=== PATIENT | male | born 1955 | race Caucasian/White ===

== ENCOUNTER → 2018-12-29 | Outpatient (CLI) | payer BC, SELFPAY | END | disposition home or self-care (01) | LOC: LAB 11:28 | PROVIDERS: Family Provider Preventive Medicine Occupational Medicine; PCP Preventive Medicine Occupational Medicine; Referring Provider Urology; Visit Provider Urology | DX: C61 Malignant neoplasm of prostate (principal) | CPT/HCPCS: 36415; 84153 ==

== ENCOUNTER → 2019-01-01 | Outpatient (CLI) | payer BC, SELFPAY ==
[2019-01-01 10:08] LABS: Bacteria 0 SEEN /hpf (None Seen); Mucous, Urine 0 SEEN /hpf (<or=2+); Red Blood Cells-Urine 0 SEEN /hpf (0-5)
[2019-01-01 11:12] LABS: Color, Urine Yellow (Yellow); Glucose, Dipstick Normal (Normal); Ketone-Dipstick 5 mg/dl (Negative); Leukocyte Esterase-Dipstick 25 /ul (Negative); Nitrite-Dipstick Negative (Negative); Occult Blood-Urine Negative /ul (Negative); Protein-Dipstick Negative (Negative); Specific Gravity, Urine 1.015 (1.002-1.030); Urine Bilirubin Dipstick Negative (Negative); Urine Clarity Sl. Cloudy (Clear); Urine Urobilinogen 4 mg/dl (Normal); Urine pH 6.5 (5.0 - 8.0)
[2019-01-01 11:18] LABS: Squamous Epithelial Cells - UA 0-5 SEEN /hpf (0-5); White Blood Cells 0-5 SEEN /hpf (0-5)
== END | disposition home or self-care (01) ==
LOC: LAB.FUTURE 10:04 → LAB 10:07
PROVIDERS: Family Provider Preventive Medicine Occupational Medicine; PCP Preventive Medicine Occupational Medicine; Referring Provider Urology; Visit Provider Urology
DX: R30.0 Dysuria (principal)
CPT/HCPCS: 81001; 87086

== ENCOUNTER → 2019-01-16 | Outpatient (CLI) | payer BC, SELFPAY | END | disposition home or self-care (01) | LOC: PAVLAB 09:49 | PROVIDERS: Family Provider Preventive Medicine Occupational Medicine; PCP Preventive Medicine Occupational Medicine; Referring Provider Urology; Visit Provider Urology | DX: C61 Malignant neoplasm of prostate (principal) | CPT/HCPCS: 36415; 84153 ==

== ENCOUNTER 2019-01-25 07:11 | Day surgery (SDC) | payer BC, SELFPAY ==
[2019-01-19 09:14] VITALS: BMI 24.9
--- NOTE | 2019-01-19 09:30 | HP_ITS ---
Intake Vital Signs 01/19/19 Body Mass Index (BMI) 24.9 01/19/19 Height 5 ft 8 in 01/19/19 Weight: 160 lb 01/19/19 Body Mass Index (BMI) 24.3 01/19/19 Blood Pressure 104/46 L 01/19/19 Blood Pressure Location Rt brachial 01/19/19 Blood Pressure Position Sitting 01/19/19 Respiratory Rate 18 01/19/19 Pulse Rate 92 01/19/19 Pulse Source Monitor 01/19/19 Temperature 97.6 F L 01/19/19 Temperature Source Oral 01/19/19 Pulse Ox 96 01/19/19 Oxygen Delivery Method room air Intake Visit Reasons: NEEDS PORT Chief Complaint: Referred for management of prostate cancer. Telehealth Nurse Required: No Is patient in pain?: No Allergies No Known Allergies Allergy (Verified 01/19/19 09:14) Medications Lisinopril [Zestril] 20 mg PO DAILY 03/23/13 [History Confirmed 01/19/19] Rosuvastatin Calcium [Crestor] 40 mg PO QHS 03/23/13 [History Confirmed 01/19/19] Dexlansoprazole [Dexilant] 60 mg PO 01/16/19 [History Confirmed 01/19/19] Ezetimibe [Zetia] 10 mg PO DAILY 01/16/19 [History Confirmed 01/19/19] Leuprolide acetate [Eligard] 22.5 mg SQ X1 01/16/19 [History Confirmed 01/19/19] Prednisone 5 mg PO BID 01/16/19 [History Confirmed 01/19/19] Aspirin [Aspir-Low] 81 mg PO DAILY 01/17/19 [History Confirmed 01/19/19] [facility] Medical History Abnormal biopsy result (Acute) Elevated PSA (Acute) Erectile dysfunction after radical prostatectomy (Acute) GERD without esophagitis (Acute) History of bone scan (Acute) Hypercholesterolemia (Acute) Malignant neoplasm of prostate (Acute) Osteoarthritis (Acute) Osteoporosis (Acute) Stress incontinence, male (Acute) Unspecified retinal disorder (Acute) Unspecified visual disturbance (Acute) Hypertension (Chronic) Surgical History History of fusion of cervical spine (Acute) History of tonsillectomy (Acute) History of radical prostatectomy (Acute) Family History Brother CAD (coronary artery disease) Coronary artery disease involving coronary bypass graft Father CAD (coronary artery disease) Coronary artery disease involving coronary bypass graft Social History (Updated 01/19/19 @ 09:30 by Mike Johnson MD) Smoking Status: Current some day smoker HPI HPI HPI: PARVEEN VERA, is a 63 M who presents to the office today for HPI HPI Surgical H&P: Yes HPI: PARVEEN VERA, is a 63 M who presents to the office today for Evaluation of a port. 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 And is going to be getting IV chemotherapy. ROS General General: Yes weight change and fatigue; no appetite, colon cancer, breast cancer or weakness HEENT HEENT: No difficulty swallowing, eye injury, eye surgery, swollen glands or hoarseness Endo Endocrine: No thyroid disease, diabetes mellitus, thyroid cancer, Hair loss, heat intolerance or cold intolerance Skin Skin: No rash or changing moles Breast Breast: No left breast lump, right breast lump, nipple discharge, breast pain, abnormal mammogram, abnormal US or breast enlargement Musc Musculoskeletal: Yes back problems and arthritis; no rheumatoid arthritis, gout or joint pain Cardio Cardiovascular: Yes high blood pressure; no murmur, pacemaker, heart disease, atrial fibrillation, heart attack, heart stent, palpitations, shortness of breat with exertion or chest pain Psych Psychiatric: No depression, anxiety or hearing voices Resp Respiratory: No shortness of breath, No sleep apnea, No cough, No COPD, No asthma, No emphysema, No wheezing Gastro Gastrointestinal: No abdominal pain, No nausea or vomiting, No diarrhea, No constipation, No blood in stool, Yes acid reflux, Yes hemorrhoids, No ulcers, No gallbladder problem, No black,tarry stools Kirby Hematologic: Yes blood thinners, No blood disorders, No bleeding, No anemia, No blood clots Neuro Neurologic: No system reviewed and no additional complaints, except as docu, No as per HPI, No abnormal walking, No abnormal hearing, No abnormal movements, No abnormal speech, No behavioral changes, No burning sensations, No confusion, No seizure-like activity, No unsteadiness, No dizziness, No localized weakness, No frequent falls, No headache(s), No lack of coordination, No loss of vision, No memory loss, No numbness, No other visual disturbances, No radiating pain, No restless legs, No sensory deficit, No fainting, No tingling, No tremor(s), No weakness, No other Exam Const General: no acute distress, well developed, well hydrated Orientation: oriented to person, oriented to place, oriented to time [facility] Head: normocephalic, atraumatic Ears: external ears normal Mouth: moist mucous membranes Eyes Sclera: sclerae normal Pupils: normal by confrontation Neck Neck: no lymphadenopathy noted Neck mass: No Thyroid: thyroid normal, symmetrical Chest Chest palpation & inspection: normal inspection of the chest Breast Palpation: No nipple discharge Resp Effort & Inspection: normal respiratory effort Auscultation: clear to auscultation bilaterally Percussion: percussion normal Cardio Rate: regular rate Rhythm: regular rhythm Heart Sounds: no murmurs GI Palpation: soft, no hepatosplenomegaly, no masses, nontender Rectal Exam: other Other: Rectal exam deferred. Extrem General: normal to inspection, no clubbing, cyanosis or edema Assessment & Plan Problems 1. Vascular catheter fitting or adjustment Z45.2 Plan I plan to perform a Power port a cath placement, Either left or right side. The planned surgical procedure was discussed extensively with the patient. The risks, benefits, anticipated outcomes and possible complication were mentioned. My staff has also explained the procedure in understandable terms and the patient was given the option to take printed material concerning the planned procedure. The patient had the opportunity to ask questions concerning the planned procedure. The patient freely consents to the planned procedure. We will try to place this in an IJ fashion however the patient has had previous neck fusion surgeries on both the left and right side and the status of the internal jugular veins is not known. I have discussed with him possibly placing this in a subclavian fashion as well. Coding Level of Care Code Off vis,new,level 3 Diagnoses Vascular catheter fitting or adjustment Z45.2 01/19/19 0931 <Electronically signed by Mike oconnor MD> Date _ Mike oJhnson MD I have re-examined the patient. There are no clinical changes since date of exam.
[2019-01-25] VITALS (7 sets, daily range): BP systolic 93–112; BP diastolic 55–74; PULSE 16–71; RESP 16; TEMP 36.7–36.9; O2SAT 95–97; BMI 25.1
[2019-01-25] MEDS: Lactated Ringers 1,000 ML 100 ML IV (08:20)
[2019-01-25] MEDS: Cefazolin 2 GM in 0.9% Normal Saline 100 ML IV (08:34)
--- NOTE | 2019-01-25 08:50 | OP.PCM_ITS ---
Problem List (1) Encounter for adjustment and management of vascular access device Status: Acute Report of Operation Date of Procedure: 01/25/19 Pre-Operative Diagnosis: Vascular fitting and adjustment Post-Operative Diagnosis: Vascular fitting and adjustment Surgery/Procedure Performed:: Placement of a right IJ PowerPort Type of Anesthesia:: Local MAC Anesthesiologist: Mike Petty Estimated Blood Loss (mL): < 25 cc Fluids Replaced: 500 cc LR Description of Procedure: Patient was brought into the operating room. Placed in the supine position. Bed was tilted down the ultrasound of the neck identify the internal jugular vein marked the neck and chest appropriately. The neck and chest were then sterilely prepped and draped in the usual fashion. Local was injected into the neck Seldinger's technique was used to gain access to the internal jugular vein guidewire was placed over the needle needle was removed fluoroscopy was used to confirm wire placement local was injected into the chest incision was made electrocautery was used to create a pocket for the port. Dilator and sheath were placed over the guidewire after the skin was nicked I removed the dilator and remove the guidewire. A single lumen catheter was placed through the sheath the sheath was subsequently removed. Fluoroscopy was used to confirm proper length. I tunneled from the pocket created over the collarbone into the neck and brought the catheter down. It flushed well I cut at the length placed the locking up on the catheter the port under the catheter and secured the 2 with a locking hub. It was sutured in place with 2 sutures of 2-0 Prolene. Skin incisions were closed with deep dermal stitches of 3-0 Vicryl and running 4-0 Monocryl Dermabond was applied sterile dressings were applied portable chest x- ray was ordered. Patient tolerated the procedure well - Admit VTE Documentation VTE Present on Admission: No VTE Mechan Device Prophylaxis: SCD's VTE Pharm Prophylaxis ordered?: No Reason prophylaxis not ordered:: Treatment Not Indicated
--- NOTE | 2019-01-25 08:53 | DCINST_ITS ---
Discharge Diet: No Restrictions - Pain medication may cause nausea. You should typically eat light foods as you take your pain medication. Discharge Activity: May Shower - with the bandage in place 1-2 days after surgery. DO NOT SHOWER WHEN YOUR PORT IS ACCESSED. Additional Activity Instructions:: May not drive, work with heavy equipment, or sign legal documents for [address] if you are no longer taking narcotic pain medications. You may drive when you are no longer taking pain medications. Additional Dressing/Incision Instructions:: Leave the bandage on for 2-3 days. When you remove the bandage, leave the steri-strips intact until they fall off. Allergies/Adverse Reactions: Allergies No Known Allergies Allergy (Verified 01/25/19 07:55) Medications to take at Discharge Lisinopril [Zestril] 20 mg PO QHS 03/23/13 Dexlansoprazole [Dexilant] 60 mg PO DAILY 01/16/19 Ezetimibe [Zetia] 10 mg PO QHS 01/16/19 Leuprolide acetate [Eligard] 22.5 mg SQ X1 01/16/19 Prednisone 5 mg PO BID 01/16/19 Aspirin [Aspir-Low] 81 mg PO DAILY 01/17/19 Abiraterone Acetate 1,000 mg PO DAILY 01/22/19 Psyllium Husk (with Sugar) [Metamucil Packet] 3.4 gm PO DAILY 01/22/19 Oxycodone HCl/Acetaminophen [Percocet 5/325] 1 - 2 tab PO Q4H PRN PRN 6 Days #30 tab 01/25/19 The following prescriptions were given: Oxycodone HCl/Acetaminophen [Percocet 5/325] 1 - 2 tab PO Q4H PRN PRN 6 Days #30 tab PRN Reason: Pain Prescription Printed Primary Care Physician: Denny Carrasco DO [Primary Care Provider] - Test Results: Test results from this visit will be discussed in further detail at your follow- up appointment, if applicable. Please Follow Up With: Janusz Cuenca MD - [phone] When: Please plan to follow up in 7 days in the office.
--- NOTE | 2019-01-25 08:53 | RAD_ITS ---
STUDY: X-RAY CHEST REASON FOR EXAM: Male, 63 years old. Port placement. TECHNIQUE: Single AP portable view of the chest. COMPARISON: None. FINDINGS: A right-sided portacatheter has been placed. The tip is at the junction of the superior vena cava and right atrium. EKG electrodes are seen. The lungs are clear and expanded. Scattered calcified granulomas. There is no demonstrated pleural abnormality. Normal size heart. Normal mediastinum and ledy. Normal visualized pulmonary arteries. Normal visualized aortic arch and descending thoracic aorta. Normal visualized thoracic spine. Normal visualized ribs, clavicles, and shoulders. There is no demonstrated abnormality of the visualized soft tissue structures of the upper abdomen. RAD/CXR for Line Placement IMPRESSION: The tip of the right cesar catheter is at the junction of the superior vena cava and right atrium. Electronically Signed: Siva Dale, at 10:10 EST , Service support ,
[2019-01-25] MEDS: Bupivacaine Mpf 0.5% 30 ML VIAL (09:00)
== END 2019-01-25 11:05 | disposition home or self-care (01) ==
LOC: SDC 07:14 → AC 07:15
PROVIDERS: Family Provider Preventive Medicine Occupational Medicine; PCP Preventive Medicine Occupational Medicine; Referring Provider Surgery; Visit Provider Surgery
PROC: (CPT 36571; principal; 2019-01-25 09:00)
DX: C61 Malignant neoplasm of prostate (principal); C77.2 Secondary and unspecified malignant neoplasm of intra-abdominal lymph nodes; Z45.2 Encounter for adjustment and management of vascular access device; K21.9 Gastro-esophageal reflux disease without esophagitis; E78.00 Pure hypercholesterolemia, unspecified; M19.90 Unspecified osteoarthritis, unspecified site; I10 Essential (primary) hypertension; N52.9 Male erectile dysfunction, unspecified; N39.3 Stress incontinence (female) (male); F17.200 Nicotine dependence, unspecified, uncomplicated; Z86.718 Personal history of other venous thrombosis and embolism; Z79.82 Long term (current) use of aspirin; Z79.899 Other long term (current) drug therapy
CPT/HCPCS: 00532; 36571; 71045; 77001; J7120; C1788; J2405

== ENCOUNTER → 2019-02-02 | Outpatient (CLI) | payer BC, SELFPAY ==
[2019-01-29 13:02] VITALS: BMI 25.3
[2019-02-01 11:49] VITALS: BMI 24.5
--- NOTE | 2019-02-02 10:31 | NM_ITS ---
CLINICAL: 63-year-old male with reported history of carcinoma of the prostate. WHOLE BODY 99m Tc MDP RADIONUCLIDE BONE SCINTIGRAPHY COMPARISON: None available FINDINGS: Following the intravenous administration of 24.0 mCi of 99m Tc MDP, whole body bone images reveal: 1. Increased radiopharmaceutical concentration is identified in the left anterior sixth rib at the costochondral junction and diffusely defined at the second lumbar vertebra posteriorly. 2. Facilitated tracer concentration is noted in the lower cervical spine posteriorly on the right, acromioclavicular compartments of both shoulders, the left knee, fifth lumbar vertebra posteriorly on the left, bilateral posterior sacrum, the left ankle, left hind, mid and forefoot. 3. The remaining skeletal structures are scintigraphically unremarkable with normal-appearing renal images and urinary bladder activity identified. NM/Bone Scan Whole Body IMPRESSION: 1. The increase in radiopharmaceutical concentration identified in the second lumbar vertebra and left anterior sixth rib is most consistent with trauma-fracture. Plain film radiography correlation may be of benefit in the setting of known prostate carcinoma. 2. Degenerative arthritis appears expressed in the cervical and lumbar spine, sacrum, bilateral shoulders, the left knee. 3. Facilitated uptake diffusely identified in the distal left upper extremity relative to the right may represent changes indeterminate to altered weight-bearing status in the absence of clinically suspected CRPS-RSD. Electronically Signed: Nikhil Fernandez DO at 13:46 EST Tel , Service support ,
== END | disposition home or self-care (01) ==
LOC: NM 10:27
PROVIDERS: Family Provider Preventive Medicine Occupational Medicine; PCP Preventive Medicine Occupational Medicine; Referring Provider Nurse Practitioner Family; Visit Provider Nurse Practitioner Family
DX: C61 Malignant neoplasm of prostate (principal)
CPT/HCPCS: 78306

== ENCOUNTER → 2019-02-16 12:45 | Outpatient (CLI) | payer BC, SELFPAY ==
[2019-02-14 10:55] VITALS: BMI 25.4
--- NOTE | 2019-02-16 13:02 | RAD_ITS ---
STUDY: X-RAY BONE SURVEY COMPLETE REASON FOR EXAM: Male, 63 years old. Prostate cancer for 8 years now with metastases. TECHNIQUE: Single AP portable view of the chest. One view of the pelvis was obtained. 1 views of the cervical spine were obtained. 2 views of the thoracic spine were obtained. 2 views of the lumbar spine were obtained. 1 views of the femur, tibia and fibula. 1 views of the humerus, radius and ulna. : 1 views of the skull were obtained. COMPARISON: None. FINDINGS: CHEST: The lungs are normally expanded with minimal left basilar atelectasis. There is a right-sided chest port in place with the tip in the distal SVC. There is no demonstrated pleural abnormality. Normal size heart. Normal mediastinum and ledy. Normal visualized pulmonary arteries. Normal visualized aortic arch and descending thoracic aorta. There are diffuse degenerative changes of the visualized thoracic spine. There is degenerative osteoarthritis of the bilateral shoulders. There is no demonstrated abnormality of the visualized soft tissue structures of the upper abdomen. PELVIS: There is a non-specific bowel gas pattern. Normal visualized soft tissue structures. There are few left-sided calcified phleboliths. There is narrowing with cortical sclerosis and osteophyte formation of the sacroiliac joint consistent with degenerative osteoarthritic changes. Normal visualized bilateral superior and inferior pubic rami. There are degenerative changes of the pubic symphysis with articular narrowing and sclerosis. Normal ischial tuberosities. Normal visualized right femoral head. There is mild osteoarthritic spur formation of the right acetabular rim. There is mild articular joint space narrowing of the right hip. Normal visualized left femoral head. There is mild osteoarthritic spur formation of the left acetabular rim. There is mild articular joint space narrowing of the left hip. CERVICAL SPINE: There are degenerative changes of the anterior atlantoaxial articulation. Normal odontoid process. There is reversal of the normal cervical lordosis. There is multi-level endplate spondylosis. There is multi-level degenerative disc disease with multilevel disc space narrowing. Sequela of previous fusion at C5-C6 and C6-C7 noted with subtle well-corticated lucencies and metallic punctate radiopaque bodies. The soft tissue structures are unremarkable. THORACIC SPINE: Normal kyphosis of the thoracic spine. There is no substantial scoliosis. There is multilevel endplate spondylosis of the thoracic vertebrae. There is multilevel disc space narrowing of the thoracic spine. There is mild osteopenia. The soft tissue structures are unremarkable. LUMBAR SPINE: Normal lumbar lordosis. There is no substantial scoliosis. There is a normal alignment of the vertebrae. There is multilevel endplate spondylosis of the lumbar vertebrae. There is multi-level degenerative disc disease with multi-level disc space narrowing. Questionable osteopenic changes noted. Compression fracture of L2 noted, exact age indeterminate. There is atherosclerotic calcification of the abdominal aorta without a demonstrated aneurysm. RIGHT FEMUR,TIBIA AND FIBULA: There is diffuse demineralization of the femur, tibia and fibula. Normal visualized soft tissue structure. There is no demonstrated fracture or destructive process. LEFT FEMUR,TIBIA AND FIBULA: There is diffuse demineralization of the femur, tibia and fibula. Normal visualized soft tissue structure. There is no demonstrated fracture or destructive process. RIGHT HUMERUS,RADIUS AND ULNA :There is diffuse demineralization of the humerus. There is no demonstrated fracture or osseous destructive process. There is no demonstrated soft tissue abnormality. LEFT HUMERUS,RADIUS AND ULNA :There is diffuse demineralization of the humerus. There is no demonstrated fracture or osseous destructive process. There is no demonstrated soft tissue abnormality. SKULL: There is no demonstrated soft tissue swelling. Multiple, small, punctate lucencies throughout the calvarium noted which could represent artifact from underlying osteopenia versus sequela of etiology such as hyperparathyroidism. Otherwise normal osseous calvarium. Normal visualized facial bones. Normal visualized paranasal sinuses. RAD/Bone Survey Comp(Axial&Append) IMPRESSION: Diffuse osteopenia along with multilevel degenerative disease as described above. No distinct fracture or subluxation. No focal bony lesion. Electronically Signed: Luisa Coleman MD at 3:38 EST , Service support ,
== END ==
PROVIDERS: Family Provider Preventive Medicine Occupational Medicine; PCP Preventive Medicine Occupational Medicine; Referring Provider Internal Medicine Medical Oncology; Visit Provider Internal Medicine Medical Oncology
DX: C61 Malignant neoplasm of prostate (principal)
CPT/HCPCS: 77075

== ENCOUNTER 2019-03-10 12:22 | Emergency (ER) | payer BC, SELFPAY ==
[2019-03-08 13:13] VITALS: BMI 25.9
[2019-03-10 12:23] VITALS: BP 126/77; PULSE 95; RESP 16; TEMP 37.2; O2SAT 96; BMI 24.6
[2019-03-10 13:20] LABS: Absolute Lymphocyte Count 1.51 X10^3/uL (0.83-4.51); Absolute Neutrophil Count 3.8 X10^3/uL (2.0-7.7); Basophil# 0.09 X10^3/uL; Basophil% 1.4 % (0-1); Eosinophil# 0.02 X10^3/uL; Eosinophils% 0.3 % (0-5); Hematocrit 41.4 % (40-54); Lymphocyte # 1.51 X10^3/ul (4.0); Lymphocyte % 22.7 % (19-41); Mean Corp Hgb Conc 33.8 g/dL (32-36); Mean Corpuscular Hgb 32.7 pg (27.0-32.0); Mean Corpuscular Volume 96.7 fL (80-94); Mean Platelet Vol. 8.8 fl (6.2-12.0); Monocyte# 1.12 X10^3/uL; Monocyte% 16.8 % (0-10); NRBC Flagged by Analyzer 0 % (0-5); Neutrophil # 3.76 X10^3/uL (2.7-7.7); Neutrophil % 56.5 % (47-70); Platelet Count 223 K/mm3 (150-450); RBC Distribution Width CV 13.7 % (11.6-14.6); RBC Distribution Width SD 48.6 fl (35.1-43.9); Red Blood Count 4.28 M/mm3 (4.6-6.2); White Blood Count 6.7 K/mm3 (4.4-11.0)
[2019-03-10 13:32] LABS: Anion Gap 4 (5-15); BUN 13 mg/dL (7-18); BUN/Creat Ratio 19.7 RATIO (10-20); Calcium,Total 9.1 mg/dL (8.5-10.1); Chloride 107 mmol/L (98-107); Creatinine, Serum 0.66 mg/dL (0.70-1.30); EST Glomerular Filtration Rate 130 mL/min (>60); Est Glom Filt Rate - Afr Amer 157 mL/min (>60); Estimated Creatinine Clearance 112.27 ml/min; Glucose 88 mg/dL (74-106); Potassium 4.1 mmol/L (3.5-5.1); Sodium Level 141 mmol/L (136-145)
[2019-03-10] MEDS: Vancomycin IV 1,000 MG/200 ML BAG 200 MG IV (13:50)
--- NOTE | 2019-03-10 14:58 | PN_ITS ---
Progress Note The patient was complaining of increased right neck pain and a firmness in the area. He called me and I had him come into the emergency room. He did have erythema and firmness in the area of the right neck. I discussed this with him and he was given vancomycin by the emergency room physician. I prepped the area with Betadine and remove the suture. The incision was opened once more and probed. There was a very small amount of purulence but this was mostly cellulitis. This area was cultured and he will be sent home on broad-spectrum a ntibiotics orally. He will follow-up as scheduled on Tuesday with Dr. Heredia. I instructed him to return to the emergency room if you experience any fevers chills nausea vomiting or lightheadedness. STROKE Vital Signs/Narrative: Vital Signs Temp Pulse Resp BP Pulse Ox 03/10/19 12:23 99.0 F 95 16 126/77 H 96
--- NOTE | 2019-03-10 15:06 | ED.VISSUMM ---
- ER Visit Summary Date of Service: 03/10/19 Chief Complaint: Wound infection History of Present Illness: The patient is a 63 M who sees and Dr. Johnson. On January 25 he had a port placed on the right side of his chest for chemotherapy for his prostate cancer. States that 3 days ago he had an area on the right side of his neck that became red. He was seen in Dr. Johnson's office by the nurse practitioner and had a small amount of pus drained. At the next day he saw Dr. Heredia and he reports that she opened the area and took out a stitch. He was placed on Cipro. Reports that the area has not improved. It is hard and red. He reports that he has a sharp pain is 8 of 10 with touching it and 6 out of 10 when he does not touch it. Patient denies any constitutional symptoms. No fever, chills, nausea, or vomiting. His last dose of chemo was on February 22. Physical Examination: Vitals: Stable. Afebrile. General: Well-nourished and well-developed. Head: Normocephalic atraumatic. Neck: Supple, no lymphadenopathy. No JVD. Nontender. Cardiovascular: Regular rate and rhythm. No murmurs. Respiratory: No respiratory distress. Clear to auscultation bilaterally. Abdominal: Soft, nontender, nondistended, normal bowel sounds. No guarding, rebound, or peritoneal signs. Back: Nontender. Extremities: Nontender, no edema. Skin: Normal color, right neck just above the clavicle there is a stitch in place and 2 cm of induration/erythema. There is no fluctuance. The port on the right chest is nontender. There is no erythema, induration or fluctuance here.. Neurologic: Alert and oriented ?3. Cranial nerves II through XII are intact. Normal strength and sensation. Psych: Normal affect. Test Results: CBC is marked for monocytes of 17 immature granulocytes 2.3%. Chem-7 shows a creatinine is 0.66. Emergency Department Course and Treatment: Patient refused pain medications. He was given a dose of vancomycin IV. He was seen by Dr. Adames in the emergency department who removed the stitch and opened this up. He obtained a wound culture. Treatment Plan: Patient be discharged with a change from Cipro to doxycycline. Instructed to follow-up Dr. Black in 2 days as previously scheduled. Return to the emergency department for any worsening symptoms. Disposition: To home in improved and stable condition. Impression: 1. Abscess right side of neck This note was generated with [employer] dictation software. It may contain incorrect words, spelling, and punctuation that were not noted in review of the chart prior to signing ED Disposition - Plan for ED Patient: Instructions: ABSCESS, Incision and Drainage Prescriptions: Doxycycline 100 mg PO BID #20 capsule Referrals: Nat Heredia MD [STAFF PHYSICIAN] - 2 Days
== END 2019-03-10 15:26 | disposition home or self-care (01) ==
LOC: ED 12:55
PROVIDERS: Emergency Provider Emergency Medicine; Family Provider Preventive Medicine Occupational Medicine; PCP Preventive Medicine Occupational Medicine
DX: L02.11 Cutaneous abscess of neck (principal); C61 Malignant neoplasm of prostate; Z95.828 Presence of other vascular implants and grafts; I10 Essential (primary) hypertension; Z79.82 Long term (current) use of aspirin; Z79.899 Other long term (current) drug therapy; F17.200 Nicotine dependence, unspecified, uncomplicated
CPT/HCPCS: 36591; 80048; 85025; 87040; 87070; 87077; 87186; 87205; 96365; 99285

== ENCOUNTER → 2019-04-17 | Outpatient (CLI) | payer BC, SELFPAY ==
[2019-04-05 09:50] VITALS: BMI 25.9
== END | disposition home or self-care (01) ==
LOC: LABSPEC 14:31
PROVIDERS: PCP Preventive Medicine Occupational Medicine; Visit Provider Physician Assistant
DX: L02.91 Cutaneous abscess, unspecified (principal)
CPT/HCPCS: 87070; 87075; 87077; 87186; 87205

== ENCOUNTER → 2019-06-18 | Outpatient (CLI) | payer BC, SELFPAY ==
[2019-05-24 08:51] VITALS: BMI 27.1
--- NOTE | 2019-06-18 06:31 | CT_ITS ---
STUDY: CT ABDOMEN AND PELVIS WITH CONTRAST REASON FOR EXAM: Male, 63 years old. POST TREATMENT SCAN -- PROSTATE CA W/ SURG, CHEMO and amp; RADIATION RADIATION DOSAGE (If Supplied By Facility): CTDIvol = ( 14.14 ) mGy, DLP = ( 894.92 ) mGycm TECHNIQUE: Transaxial images were obtained from the dome of the diaphragm to the symphysis pubis with oral contrast. Oral and amp; IV Readi-CAT and amp; 100mL OPTI-350 was administered. Sagittal and coronal images were reconstructed. Individualized dose optimization techniques were used for this CT. COMPARISON: None. FINDINGS: Minimal degree of dependent bibasilar atelectasis. The visualized portions of the heart are within normal limits. Normal liver. Normal gallbladder and extrahepatic biliary system. Normal spleen. Normal pancreas. Normal bilateral adrenal glands. There is a 2.3 cm x 2.3 cm cyst in the upper medial portion of the right kidney. Normal left kidney. Normal visualized stomach. Normal small intestine. There are multiple colonic diverticula consistent with diverticulosis. The appendix is visualized and appears normal. There is scattered atherosclerotic calcification of the abdominal aorta and major visceral branches, without a demonstrated aneurysm. Normal inferior vena cava. There is retroperitoneal lymphadenopathy with enlarged nodes greater than 10-15mm in the short axis. This is worse at the level of the left para-aortic region just distal to the origin of the renal vessels. The bladder is not adequately distended. There are prostatic calcifications. There is evidence of prior TURP of the prostate. Normal abdominal wall. There are diffuse degenerative changes of the visualized lumbar spine. Straightening of the normal lumbar lordosis. Mild old compression fracture of the anterior superior aspect of the L2 vertebrae. CT/Abdomen/Pelvis WITH Contrast IMPRESSION: Enlarged para-aortic lymph nodes worse on the left side just distal to the origin of the renal vessels. Right renal cyst. Electronically Signed: Siva Dale, at 8:32 EDT , Service support ,
[2019-06-18 06:43] LABS: Absolute Lymphocyte Count 1.79 X10^3/uL (0.83-4.51); Absolute Neutrophil Count 6.7 X10^3/uL (2.0-7.7); Basophil# 0.14 X10^3/uL; Basophil% 1.4 % (0-1); Eosinophil# 0.09 X10^3/uL; Eosinophils% 0.9 % (0-5); Hematocrit 41.6 % (40-54); Hemoglobin 13.7 g/dL (13.0-16.5); Lymphocyte # 1.79 X10^3/ul (4.0); Lymphocyte % 18.3 % (19-41); Mean Corp Hgb Conc 32.9 g/dL (32-36); Mean Corpuscular Hgb 32.6 pg (27.0-32.0); Mean Platelet Vol. 9.3 fl (6.2-12.0); Monocyte# 0.94 X10^3/uL; Monocyte% 9.6 % (0-10); NRBC Flagged by Analyzer 0 % (0-5); Neutrophil # 6.73 X10^3/uL (2.7-7.7); Neutrophil % 68.9 % (47-70); Platelet Count 248 K/mm3 (150-450); RBC Distribution Width CV 15.6 % (11.6-14.6); RBC Distribution Width SD 55.8 fl (35.1-43.9); White Blood Count 9.8 K/mm3 (4.4-11.0)
[2019-06-18 07:05] LABS: ALB/GLOB Ratio 1.1 RATIO (0.9-2.4); AST(SGOT) 18 U/L (15-37); Alanine Aminotransfer ALT/SGPT 20 U/L (16-61); Albumin, Serum 3.5 g/dL (3.2-5.0); Alkaline Phosphatase 75 U/L (45-117); Anion Gap 6 (5-15); BUN 23 mg/dL (7-18); BUN/Creat Ratio 28.3 RATIO (10-20); Calcium,Total 8.6 mg/dL (8.5-10.1); Chloride 102 mmol/L (98-107); Creatinine, Serum 0.81 mg/dL (0.70-1.30); EST Glomerular Filtration Rate 102 mL/min (>60); Est Glom Filt Rate - Afr Amer 123 mL/min (>60); Globulin 3.2 g/dL (2.2-4.2); Glucose 92 mg/dL (74-106); LDH 182 U/L (87-241); PSA,Total- Diagnostic 2.64 ng/mL (0.0-4.0); Potassium 4.6 mmol/L (3.5-5.1); Protein, Total 6.7 g/dL (6.4-8.2); Sodium Level 138 mmol/L (136-145)
[2019-06-18 14:35] LABS: Xtra Tube EP Lab EXTRA TUBE
== END | disposition home or self-care (01) ==
PROVIDERS: PCP Preventive Medicine Occupational Medicine; Referring Provider Internal Medicine Medical Oncology; Visit Provider Internal Medicine Medical Oncology
DX: C61 Malignant neoplasm of prostate (principal); C77.2 Secondary and unspecified malignant neoplasm of intra-abdominal lymph nodes
CPT/HCPCS: 36415; 74177; 80053; 83615; 84153; 85025; Q9967

== ENCOUNTER → 2019-10-26 07:52 | Outpatient (CLI) | payer BC, SELFPAY ==
[2019-10-04 11:08] VITALS: BMI 25.6
--- NOTE | 2019-10-26 07:59 | NM_ITS ---
CLINICAL: 64-year-old male with reported history of carcinoma of the prostate. WHOLE BODY 99m Tc MDP RADIONUCLIDE BONE SCINTIGRAPHY COMPARISON: Previous whole body bone scintigraphy study dated 02/02/2019 FINDINGS: Following the intravenous administration of approximately 25.0 mCi of 99m Tc MDP, whole body bone images reveal: 1. Increased radiopharmaceutical concentration is currently identified in the acromioclavicular compartments of both shoulders, upper-lower cervical spine posteriorly on the left and right, the first-second and fifth lumbar vertebra anteriorly and posteriorly primarily at the intervertebral disc space, patellofemoral compartments of both knees, medial tibial compartment of the right knee, bilateral hands. 2. The remaining skeletal structures are scintigraphically unremarkable with normal-appearing renal images and urinary bladder activity identified. The previously described increase in tracer concentration defined in the left anterior sixth rib on the whole body bone scintigraphy study dated 02/02/2019 is not apparent on the current examination consistent with interim healing of trauma-fracture. NM/Bone Scan Whole Body IMPRESSION: 1. The increase in radiotracer distribution currently defined in the bilateral shoulders, cervical and lumbar spine, bilateral knees, the right-left hands is commensurate with degenerative arthritis. 2. Overall compared to the previous whole body bone scintigraphy study dated 02/02/2019, there is no significant interval change. No definitive scintigraphic evidence of diffuse axial skeletal metastatic disease is demonstrated on the current examination. Electronically Signed: Nikhil Fernandez DO at 11:11 EDT Tel , Service support ,
--- NOTE | 2019-10-26 12:10 | RAD_ITS ---
STUDY: X-RAY CHEST REASON FOR EXAM: Male, 64 years old. Chest pain, elevated PSA TECHNIQUE: PA and lateral views of the chest. COMPARISON: 01/25/2019 FINDINGS: The lungs are clear and expanded. There is no demonstrated pleural abnormality. Normal size heart. Normal mediastinum and ledy. Normal visualized pulmonary arteries. Normal visualized aortic arch and descending thoracic aorta. Normal visualized thoracic spine. Normal visualized ribs, clavicles, and shoulders. There is no demonstrated abnormality of the visualized soft tissue structures of the upper abdomen. RAD/Chest PA and Lateral IMPRESSION: No acute pulmonary process Electronically Signed: Jarad Decker MD at 16:50 EDT , Service support ,
== END ==
PROVIDERS: PCP Preventive Medicine Occupational Medicine; Referring Provider Nurse Practitioner Family; Visit Provider Nurse Practitioner Family
DX: C61 Malignant neoplasm of prostate (principal); C77.2 Secondary and unspecified malignant neoplasm of intra-abdominal lymph nodes; R97.20 Elevated prostate specific antigen [PSA]
CPT/HCPCS: 71046; 78306; A9503

== ENCOUNTER → 2019-12-04 | Outpatient (CLI) | payer BC, SELFPAY ==
--- NOTE | 2013-04-04 | IMM_PTH ---
PATIENT: PARVENE VERA LOC: [facility] U#:[id number] AGE/SX: 64/M ROOM: RE12/04/[address]: Dr. Janusz Cuenca MD : [id number] BED: DIS: 12/04/2019 SPEC #: [id number] RECD: 12/04/19 11:55 STATUS: BRIDGER REQ #: [id number] TED: 04/04/13 00:[address]: Janusz Cuenca DEPT: IMMUNOHISTOCHEMISTRY RECD BY: Pam Diggs ENTERED: 12/04/19 11:58 SP TYPE: IMMUNO OTHR DR: Dr. Denny Carrasco DO Tissues: D - Prostate, NOS Procedures: MSH2 (add) MLH-1 (add) MSH6 (add) Anti-PMS2 (add) KI-67 (add) P53 (add) HER-2-EVAN (initial) PHYSICIAN & INSTITUTION [place] [id number] SPECIMEN INFORMATION: Tissue Source: D - Prostate, radical prostatectomy Clinical Info: Prostate cancer Specimen Number: [id number] [id number] CPT code: 19420, 77306 x6 METHODOLOGY: Deparaffinized sections of prefer/formalin-fixed tissue or PAP/DQ stained slides are incubated with monoclonal/polyclonal antibodies/oligonucleotide probes. Localization is made via biotin free immunoperoxidase method. Appropriate controls are performed and reacted as expected. Results on target cell population are indicated in the following table: RESULTS: ANTIBODY / CLONE RESULT Block D23 Ki-67 (30-9) positive, 15% P53 (DO-7) negative MLH-1 (M1) positive MSH2 (25D12) positive MSH6 (44) positive PMS2 (ZXO6693) positive Her-2neu (CB11) negative These tests were developed and their performance characteristics determined by [facility]. They may not have been cleared or approved by the U.S. Food and Drug Administration. The FDA has determined that such clearance or approval is not necessary. The above immunohistochemical/dualISH markers are ordered and reviewed by the Pathologist. INTERPRETATION: D. Prostate, radical prostatectomy: Adenocarcinoma. Result of Microsatellite Instability Study: Negative (no loss of mismatch protein; no microsatellite instability detected). AM:priyanka 12/04/19 Comment: Results from PDL-1 study will be reported as an addendum. ADDENDUM ADDENDUM ADDENDUM ADDENDUM ADDENDUM ADDENDUM 12/10/2019 10:30 ADDENDUM 12/10/2019 10:30 ADDENDUM 12/10/2019 10:30 ADDENDUM 12/10/2019 10:30 ADDENDUM 12/10/2019 10:30 PD-L1 (KEYTRUDA) IMMUNOHISTOCHEMICAL ANALYSIS FROM [facility] RESULTS: Tumor proportion score: 0 / Negative Please see complete report in e-chart or EMR for complete details
[2019-11-27 13:51] VITALS: BMI 25.2
== END | disposition home or self-care (01) ==
LOC: LABSPEC 11:53
PROVIDERS: PCP Preventive Medicine Occupational Medicine; Visit Provider Internal Medicine Medical Oncology
DX: C61 Malignant neoplasm of prostate (principal); C77.2 Secondary and unspecified malignant neoplasm of intra-abdominal lymph nodes
CPT/HCPCS: 88341; 88342

== ENCOUNTER → 2020-02-26 08:07 | Outpatient (CLI) | payer BC, SELFPAY ==
[2020-02-12 10:52] VITALS: BMI 24.8
--- NOTE | 2020-02-26 08:10 | CT_ITS ---
STUDY: CT ABDOMEN AND PELVIS WITH CONTRAST REASON FOR EXAM: Male, 64 years old. PROSTATE TREATMENT CHECK UP, PROSTATECTOMY, 2ND ROUND OF TREATMENTS RADIATION DOSAGE (If Supplied By Facility): CTDIvol = ( 16.00 ) mGy, DLP = ( 825.13 ) mGycm TECHNIQUE: Transaxial images were obtained from the dome of the diaphragm to the symphysis pubis with oral contrast. Oral and amp;amp; IV Readi-CAT and amp;amp; 100mL Isovue-300 was administered. Sagittal and coronal images were reconstructed. Individualized dose optimization techniques were used for this CT. COMPARISON: Comparison is made with prior study dated 06/18/2019. FINDINGS: The visualized lung bases are unremarkable. The visualized portions of the heart are within normal limits. Normal liver. Normal gallbladder and extrahepatic biliary system. Normal spleen. Normal pancreas. Normal bilateral adrenal glands. 2.3 cm x 2.3 cm cyst in the upper medial portion of the right kidney. Stable mild degree of bilateral hydronephrosis slightly worse on the left side. Mild degree of bilateral perinephric stranding. Normal visualized stomach. Normal small intestine. Normal colon. The appendix is visualized and appears normal. There is diffuse atherosclerotic calcification of the abdominal aorta, without a demonstrated aneurysm. Normal inferior vena cava. There is retroperitoneal lymphadenopathy with enlarged nodes greater than 10-15mm in the short axis. Since prior study, there has been a mild degree of improvement of the retroperitoneal lymphadenopathy. Normal urinary bladder. The patient is status post prostatectomy. Normal abdominal wall. There are diffuse degenerative changes of the visualized lumbar spine. Stable minimal loss of height of the superior endplate of the L2 vertebrae. CT/Abdomen/Pelvis WITH Contrast IMPRESSION: Persistent diffuse retroperitoneal lymphadenopathy. There has been a mild improvement as compared to prior study. Electronically Signed: Siva Dale, at 8:42 EST , Service support ,
== END ==
LOC: CT 08:07
PROVIDERS: PCP Preventive Medicine Occupational Medicine; Referring Provider Internal Medicine Medical Oncology; Visit Provider Internal Medicine Medical Oncology
DX: C61 Malignant neoplasm of prostate (principal); C77.2 Secondary and unspecified malignant neoplasm of intra-abdominal lymph nodes
CPT/HCPCS: 74177; Q9967; A4216

== ENCOUNTER → 2020-04-02 07:58 | Outpatient (CLI) | payer BC, SELFPAY ==
[2020-03-25 10:04] VITALS: BMI 25.4
[2020-04-02] VITALS (9 sets, daily range): BP systolic 109–124; BP diastolic 56–77; PULSE 64–85; RESP 12–19; TEMP 36.7; O2SAT 96–100; BMI 24.6
--- NOTE | 2020-04-02 | IMM_PTH ---
PATIENT: PARVEEN VERA LOC: CT U#:[id number] AGE/SX: 69/M ROOM: RE04/02/[address]: Dr. Janusz Cuenca MD : 1955 BED: DIS: SPEC #: [id number] RECD: 04/03/20 10:29 STATUS: BRIDGER REQ #: [id number] TED: 04/02/20 00:[address]: Janusz Cuenca DEPT: IMMUNOHISTOCHEMISTRY RECD BY: Pam Diggs ENTERED: 04/03/20 10:30 SP TYPE: IMMUNO OTHR DR: Dr. Denny Carrasco DO Tissues: LYMPH NODE BIOPSY Procedures: Synapto (add) RCC (add) NAPSIN A (add) CD56 (add) CHROMO (add) CK20 (add) CK5-6 (add) CK7 (add) CK8 (add) HEP PAR (add) TTF1 (add) Pankeratin (initial) P40 (add) PSAP (add) NSE (add) PHYSICIAN & [address] [address] SPECIMEN INFORMATION: Tissue Source: Left supraclavicular lymph node Clinical Info: Enlarged lymph node Specimen Number: [id number] CPT code: 52518, 87240 x14 METHODOLOGY: Deparaffinized sections of prefer/formalin-fixed tissue or PAP/DQ stained slides are incubated with monoclonal/polyclonal antibodies/oligonucleotide probes. Localization is made via biotin free immunoperoxidase method. Appropriate controls are performed and reacted as expected. Results on target cell population are indicated in the following table: RESULTS: ANTIBODY / CLONE RESULT AE1-3 (AE1/AE3/PCK26) positive CK7 (OV-TL12/30) positive, focal CK8 (09aqsxE22) positive CK20 (KS20.8) negative TTF-1 (8G7G3/1) negative Napsin A (Rabbit Polyclonal) negative HepPar (OCh1E5) negative RCC (PN-15) negative PSAP (PASE/4LJ) positive CK5-6 (D5 & 1684) negative P40 (BC28) negative These tests were developed and their performance characteristics determined by [facility]. They may not have been cleared or approved by the U.S. Food and Drug Administration. The FDA has determined that such clearance or approval is not necessary. The above immunohistochemical/dualISH markers are ordered and reviewed by the Pathologist. INTERPRETATION: Left supraclavicular lymph node, CT-guided core biopsy: Metastatic carcinoma consistent with prostate primary. SJ:rg 04/04/2020 ADDENDUM ADDENDUM ADDENDUM ADDENDUM ADDENDUM ADDENDUM ADDENDUM ADDENDUM ADDENDUM ADDENDUM ADDENDUM 04/09/2020 13:38 ADDENDUM 04/09/2020 13:38 ADDENDUM 04/09/2020 13:38 ADDENDUM 04/09/2020 13:38 ADDENDUM 04/09/2020 13:38 ANTIBODY / CLONE RESULT NSE Neuron Specific Enolase negative CD56 (123C3.D5) negative Chromo (LK2H10) negative Synapto (polyclonal) negative The above immunohistochemical/dualISH markers are ordered by Dr. Cuenca and reviewed by the pathologist. SJ:priyanka 04/09/2020
--- NOTE | 2020-04-02 | ASPIGT_PTH ---
PATIENT: PARVEEN VERA LOC: [place] U#:[id number] AGE/SX: 69/M ROOM: RE04/02/[address]: Dr. Janusz Cuenca MD : 1955 BED: DIS: SPEC #: [id number] RECD: 04/02/20 10:12 STATUS: BRIDGER ALMAZ #: [id number] TED: 04/02/20 00:[address]: Janusz Cuenca DEPT: SURGICAL PATHOLOGY RECD BY: Paulino Montoya ENTERED: 04/02/20 10:12 SP TYPE: ASP RAD MELISSA DR: Dr. Denny Carrasco DO Tissues: Lymph node of neck, NOS Procedures: FNA Specimen Adequacy Special Stain Group II Surgery Specimen Level IV Imprint (control) HEADER OPERATION: Supraclavicular node biopsy, left PRE-OP DIAGNOSIS: Enlarged lymph node TISSUE SUBMITTED: Left supraclavicular lymph node, 20-gauge core MICROSCOPIC DIAGNOSIS Left supraclavicular lymph node, CT-guided core biopsy: Metastatic non-small cell carcinoma, consistent with prostate primary. See comment. SJ:priyanka 04/03/2020 COMMENT The specimen is evaluated at the time of biopsy by Dr. Hamilton. Immediate Evaluation = Malignant cells present derived from non-small cell carcinoma. Clinical correlation and appropriate follow up are necessary. Immunohistochemistry ([id number]) supports the above diagnosis. Molecular studies on the tumor can be performed if clinically indicated. Please notify the laboratory if they are needed. Please make reference to previous specimen ([id number]) prostate, radical prostatectomy with diagnosis of poorly differentiated adenocarcinoma. Case has been reviewed in consultation with Dr. Kapoor who concurs with the above diagnosis. IDC:AM MICROSCOPIC DESCRIPTION Slides are reviewed. GROSS DESCRIPTION Received in fixative is one container labeled with the patient's name and designated left supraclavicular lymph node. The specimen consists of four cores of light funes soft tissue. Each core has an average length of 1 cm and maximal diameter of <0.1 cm. The specimen is submitted in its entirety in one cassette. Two touch imprints are prepared at the time of core biopsy. / AM:priyanka 04/02/20 TC:0 CPT: 02387, 27782
--- NOTE | 2020-04-02 08:19 | CT_ITS ---
PROCEDURE: CT GUIDED biopsy of the left cervical lymph node. DATE: 04/02/2020. INDICATION: Male, 64 years old. Left cervical lymphadenopathy. PHYSICIAN: Siva Dale M.D. RADIATION DOSAGE (If Supplied By Facility): CTDIvol = ( 17 ) mGy, DLP = ( 297.87 ) mGycm. Individualized dose optimization techniques were utilized. PROCEDURE: The risks, benefits, and alternatives to the procedure were explained to the patient. The specific risk of hemorrhage requiring further treatment or intervention was detailed and accepted. Follow-up instructions were discussed with the patient as well. Written informed consent was obtained. The patient was brought into the CT suite and placed in the supine position. . An appropriate entry site was identified. The overlying skin was prepped and draped in the usual sterile fashion. 1% lidocaine was administered subcutaneously for local anesthesia. Conscious sedation was performed. The patient received 1 mg of VERSED and 25 mcg of FENTANYL intravenously. Conscious sedation was started at 9:20 AM and terminated at 9:30 the patient was independently monitored by the department nurse. Under CT guidance, a total of 4 passes were performed utilizing a 20-gauge core biopsy needle system. The specimens were then placed in the appropriate fluid and transported to the laboratory for analysis. Hemostasis was obtained. The patient tolerated the procedure well without immediate complications. The conscious sedation protocol was followed. CT/Biopsy/Inj or Needle Placement IMPRESSION: Successful CT guided biopsy of a left supraclavicular lymph node, as described above. Electronically Signed: Siva Dale, at 10:08 EST , Service support ,
[2020-04-02 08:28] LABS: Absolute Lymphocyte Count 1.28 X10^3/uL (0.83-4.51); Absolute Neutrophil Count 6.1 X10^3/uL (2.0-7.7); Basophil# 0.06 X10^3/uL; Basophil% 0.7 % (0-1); Eosinophil# 0.13 X10^3/uL; Eosinophils% 1.5 % (0-5); Hematocrit 40.1 % (40-54); Hemoglobin 13.2 g/dL (13.0-16.5); Lymphocyte # 1.28 X10^3/ul (4.0); Lymphocyte % 15.3 % (19-41); Mean Corp Hgb Conc 32.9 g/dL (32-36); Mean Corpuscular Hgb 30.8 pg (27.0-32.0); Mean Corpuscular Volume 93.7 fL (80-94); Mean Platelet Vol. 9.5 fl (6.2-12.0); Monocyte# 0.82 X10^3/uL; Monocyte% 9.8 % (0-10); NRBC Flagged by Analyzer 0 % (0-5); Neutrophil # 6.06 X10^3/uL (2.7-7.7); Neutrophil % 72.2 % (47-70); Platelet Count 250 K/mm3 (150-450); RBC Distribution Width CV 15.1 % (11.6-14.6); RBC Distribution Width SD 51.6 fl (35.1-43.9); Red Blood Count 4.28 M/mm3 (4.6-6.2); White Blood Count 8.4 K/mm3 (4.4-11.0)
[2020-04-02 08:40] LABS: Prothrombin Time (Protime)PT. 12.4 SECONDS (11.7-14.9)
[2020-04-02 08:41] LABS: Partial Thromboplast Time 29.2 Seconds (24.1-36.2)
[2020-04-02] MEDS: fentaNYL 100 MCG/2 ML Ampul IV (09:20)
[2020-04-02] MEDS: Midazolam 2 MG/2 ML Syringe IV (09:20)
== END ==
PROVIDERS: PCP Preventive Medicine Occupational Medicine; Referring Provider Internal Medicine Medical Oncology; Visit Provider Internal Medicine Medical Oncology
DX: Z01.818 Encounter for other preprocedural examination (principal); C77.5 Secondary and unspecified malignant neoplasm of intrapelvic lymph nodes; C61 Malignant neoplasm of prostate; C77.2 Secondary and unspecified malignant neoplasm of intra-abdominal lymph nodes
CPT/HCPCS: 49180; 36415; 77012; 85025; 85610; 85730; 88172; 88305; 88313; 88341; 88342; 99155; 99156; J7040; A4216

== ENCOUNTER → 2020-04-17 12:57 | Outpatient (CLI) | payer BC, SELFPAY ==
[2020-04-02 08:47] VITALS: BMI 24.6
[2020-04-14 13:58] VITALS: BMI 24.7
--- NOTE | 2020-04-17 12:59 | CT_ITS ---
STUDY: CT ABDOMEN AND PELVIS WITH CONTRAST REASON FOR EXAM: Male, 64 years old. RESTAGING METASTATIC PROSTATE CANCER, PROSTATECTOMY, HAD CHEMO AND RAD TX, HTN RADIATION DOSAGE (If Supplied By Facility): CTDIvol = ( 12.78 ) mGy, DLP = ( 1299.6 ) mGycm TECHNIQUE: Transaxial images were obtained from the dome of the diaphragm to the symphysis pubis without oral contrast. IV 100mL Isovue-300 was administered. Sagittal and coronal images were reconstructed. Individualized dose optimization techniques were used for this CT. COMPARISON: None. FINDINGS: There is a nodule in the right lung lower lobe measures 7 mm. The visualized portions of the heart are within normal limits. Normal liver. Normal gallbladder and extrahepatic biliary system. Normal spleen. Normal pancreas. Normal bilateral adrenal glands. Normal right kidney. Normal left kidney. Normal visualized stomach. Normal small intestine. Normal colon. The appendix is visualized and appears normal. Normal abdominal aorta. Normal inferior vena cava. There is increase in size of confluent retroperitoneal metastatic lymphadenopathy encasing the abdominal aorta measures 9.1 x 0.3 cm and has increased in size as measured previously 7.6 x 4.9 cm. Normal urinary bladder. Normal abdominal wall. There are diffuse degenerative changes of the visualized lumbar spine. Chronic bilateral pars defect L5 with 5 mm spondylolisthesis at L5-S1. There is mild old compression fracture of L2. CT/Abdomen/Pelvis W IV Cont ONLY IMPRESSION: There is increase in size of confluent retroperitoneal metastatic lymphadenopathy encasing the abdominal aorta measures 9.1 x 0.3 cm and has increased in size as measured previously 7.6 x 4.9 cm. Electronically Signed: Cher Hale MD at 7:12 EST Tel , Service support ,
--- NOTE | 2020-04-17 12:59 | CT_ITS ---
STUDY: CT CHEST WITH CONTRAST REASON FOR EXAM: Male, 64 years old. RESTAGING METASTATIC PROSTATE CANCER, PROSTATECTOMY, HAD CHEMO AND RAD TX, HTN RADIATION DOSAGE (If Supplied By Facility): CTDIvol = ( 12.78 ) mGy, DLP = ( 1299.6 ) mGycm TECHNIQUE: Transaxial imaging was performed following intravenous administration of IV 100mL Isovue-300. Individualized dose optimization techniques were used for this CT. COMPARISON: 06/18/2019 FINDINGS: There is a stable nodule in the right lung lower lobe anterior basal segment measures 7 mm it has not changed since 06/18/2019. There is no demonstrated pleural abnormality. Normal heart and pericardium. Normal mediastinum. Normal hilar regions. Normal enhanced pulmonary arteries. Normal aorta arch and descending thoracic aorta. Normal osseous structures. There is no demonstrated abnormality of the visualized upper abdomen. CT/Chest WITH Contrast IMPRESSION: No evidence of metastatic lesions in the chest. Electronically Signed: Cher Hale MD at 7:25 EST Tel , Service support ,
--- NOTE | 2020-04-17 12:59 | CT_ITS ---
STUDY: CT SOFT TISSUE NECK WITH CONTRAST REASON FOR EXAM: Male, 64 years old. RESTAGING METASTATIC PROSTATE CANCER, PROSTATECTOMY, HAD CHEMO AND RAD TX, HTN RADIATION DOSAGE (If Supplied By Facility): CTDIvol = ( 12.78 ) mGy, DLP = ( 1299.6 ) mGycm TECHNIQUE: The patient was scanned in a multi-detector CT scanner. High resolution transaxial imaging was performed following intravenous administration of IV 100mL Isovue-300. Sagittal and coronal images were reconstructed. Individualized dose optimization techniques were used for this CT. COMPARISON: None. FINDINGS: Normal bilateral parotid glands. Normal bilateral metal drawer spaces. Normal bilateral parapharyngeal spaces. Normal bilateral carotid spaces. Normal bilateral sublingual and submandibular glands and spaces. Normal visualized nasopharynx. Normal retropharyngeal space. Normal perivertebral space. Normal visualized bilateral faucial tonsils. The visualized tongue, tongue base and oropharynx are normal. There is confluent metastatic cervical supraclavicular lymphadenopathy on the left side measuring approximately 4.2 x 4.2 x 6.6 cm. Normal epiglottis, bilateral vallecula and hypopharynx. The pre-epiglottic and paraglottic adipose spaces are normal. Normal visualized bilateral piriform sinuses, aryepiglottic folds, vocal cords, and arytenoid-cricoid articulations. Normal subglottic trachea. Normal bilateral lobes of the thyroid gland. Normal visualized pulmonary apices. Normal visualized paranasal sinuses. Normal visualized cervical spine. CT/Soft Tissue Neck WITH Contrast IMPRESSION: There is confluent metastatic cervical supraclavicular lymphadenopathy on the left side measuring approximately 4.2 x 4.2 x 6.6 cm. Electronically Signed: Cher Hale MD at 7:20 EST Tel , Service support ,
== END ==
PROVIDERS: PCP Preventive Medicine Occupational Medicine; Referring Provider Internal Medicine Medical Oncology; Visit Provider Internal Medicine Medical Oncology
DX: C77.2 Secondary and unspecified malignant neoplasm of intra-abdominal lymph nodes (principal)
CPT/HCPCS: 70491; 71260; 74177; Q9967

== ENCOUNTER 2020-05-10 08:07 | Inpatient (IN) | payer BC, SELFPAY ==
[2020-04-14 13:58] VITALS: BMI 24.7
[2020-04-29 09:33] VITALS: BMI 24.5
[2020-05-10 08:08] VITALS: BP 121/70; PULSE 89; RESP 20; TEMP 36.6; O2SAT 98; BMI 23.1
--- NOTE | 2020-05-10 08:25 | ED.VISSUMM ---
- ER Visit Summary Date of Service: 05/10/20 Chief Complaint: Abdominal pain and vomiting History of Present Illness: The patient is a [address] Quinones, Dr. Arroyo, Dr. Cuenca and Dr. Lindsay. He has a history of prostate cancer with metastases to the lymph nodes. There is no bony metastases. He reports that he had a new chemotherapy agent 2 weeks ago. Reports that he has abdominal pain that began yesterday. Is a sharp epigastric pain instead of 10 at worst and 6 out of 10 currently. Is worsened by nothing relieved by nothing. Is been nausea and vomited 3 times. No blood in his emesis. His last bowel was 2 days ago. He denies any blood in the stools or black tarry stools. No dysuria or frequency. Patient denies fever or chills. He reports that he has a sore throat from radiation that is unchanged. Complains of generalized weakness. Physical Examination: Vitals: Stable. Afebrile. General: Well-nourished and well-developed. Head: Normocephalic atraumatic. Neck: Supple, no lymphadenopathy. No JVD. Nontender. Cardiovascular: Regular rate and rhythm. No murmurs. Respiratory: No respiratory distress. Clear to auscultation bilaterally. Abdominal: Soft, mild epigastric tenderness to palpation, nondistended, normal bowel sounds. No guarding, rebound, or peritoneal signs. Back: Nontender. Extremities: Nontender, no edema. Skin: Normal color, no rash. Neurologic: Alert and oriented ?3. Cranial nerves II through XII are intact. Normal strength and sensation. Psych: Normal affect. Test Results: CBC shows a white count of 2.4 with 77 segmented neutrophils and 13 lymphocytes. This gives an absolute neutrophil count of 1848. H&H is 11.5 and 35.7. Chem-7 shows sodium 135, creatinine of 3.96, BUN of 56. LFTs show globulin 4.6, ALT of 14. Lipase is 31. Creatinine ranged between 0.68?1.13 in 2019. His last creatinine on April 29 was 1.72. Emergency Department Course and Treatment: Patient had an IV placed. Is given a liter normal saline. Is given morphine and Zofran IV. He is resting more comfortably. Patient was given a second liter of normal saline. He has been able to keep Gatorade down. But he continues to complain of weakness and that he does not feel well. Treatment Plan: Patient will be discussed the hospitalist and admitted for further evaluation and treatment. Disposition: Admitted in improved condition. Impression: 1. Acute kidney injury. 2. Vomiting. 3. Generalized weakness. This note was generated with [employer] dictation software. It may contain incorrect words, spelling, and punctuation that were not noted in review of the chart prior to signing ED Disposition - Plan for ED Patient: Referrals: Denny Carrasco DO [Primary Care Provider] -
[2020-05-10] MEDS: morphine 8 MG/ML Syringe IV (08:29)
[2020-05-10] MEDS: 0.9% Normal Saline 1,000 ML 1000 ML IV (08:29)
[2020-05-10] MEDS: Ondansetron 4 MG/2 ML Vial IV ×2 (08:29→18:09)
[2020-05-10 08:30] LABS: Absolute Lymphocyte Count 0.31 X10^3/uL (0.83-4.51); Absolute Neutrophil Count 1.8 X10^3/uL (2.0-7.7); Basophil# 0.01 X10^3/uL; Basophil% 0.4 % (0-1); Hematocrit 35.7 % (40-54); Hemoglobin 11.5 g/dL (13.0-16.5); Lymphocyte # 0.31 X10^3/ul (4.0); Mean Corp Hgb Conc 32.2 g/dL (32-36); Mean Corpuscular Hgb 30.3 pg (27.0-32.0); Mean Corpuscular Volume 93.9 fL (80-94); Monocyte# 0.22 X10^3/uL; Monocyte% 9.2 % (0-10); NRBC Flagged by Analyzer 0 % (0-5); Neutrophil # 1.83 X10^3/uL (2.7-7.7); POSITIVE DIFFERENTIAL YES; Platelet Count 208 K/mm3 (150-450); RBC Distribution Width CV 13.5 % (11.6-14.6); RBC Distribution Width SD 46.4 fl (35.1-43.9); White Blood Count 2.4 K/mm3 (4.4-11.0)
[2020-05-10 08:35] LABS: Differential Indicated SCAN CRITERIA MET
[2020-05-10 08:56] LABS: ALB/GLOB Ratio 0.8 RATIO (0.9-2.4); AST(SGOT) 28 U/L (15-37); Alanine Aminotransfer ALT/SGPT 14 U/L (16-61); Albumin, Serum 3.5 g/dL (3.2-5.0); Alkaline Phosphatase 66 U/L (45-117); Anion Gap 8 (5-15); BUN 56 mg/dL (7-18); BUN/Creat Ratio 14.1 RATIO (10-20); Calcium,Total 9.4 mg/dL (8.5-10.1); Chloride 99 mmol/L (98-107); Creatinine, Serum 3.96 mg/dL (0.70-1.30); EST Glomerular Filtration Rate 16 mL/min (>60); Est Glom Filt Rate - Afr Amer 20 mL/min (>60); Estimated Creatinine Clearance 18.47 ml/min; Globulin 4.6 g/dL (2.2-4.2); Glucose 100 mg/dL (74-106); Lipase 31 U/L (73-393); Potassium 4.6 mmol/L (3.5-5.1); Protein, Total 8.1 g/dL (6.4-8.2); Sodium Level 135 mmol/L (136-145)
[2020-05-10] MEDS: Morphine 4 MG/ML Syringe IV (09:25)
[2020-05-10] MEDS: 0.9% Normal Saline 1,000 ML 999 ML IV (09:41)
[2020-05-10 10:07] VITALS: BP 150/79; PULSE 67; RESP 15; O2SAT 98
--- NOTE | 2020-05-10 10:26 | NURSING ---
DR ADDIE JOHNSON
--- NOTE | 2020-05-10 10:26 | NURSING ---
MED SURG OBS ADDIE CAITLIN, WEAKNESS
[2020-05-10 10:37] VITALS: BP 153/79; PULSE 69; RESP 17; TEMP 36.6; O2SAT 95
[2020-05-10] MEDS: 0.9% Normal Saline 1,000 ML 150 ML IV ×3 (11:00→23:19)
--- NOTE | 2020-05-10 11:20 | HP.PCM_ITS ---
Problem List (1) CAITLIN (acute kidney injury) Status: Acute (2) Intractable nausea and vomiting Status: Acute History of Present Illness Date of Admission: 05/10/20 Chief Complaint: N/V weakness The patient is a 64 year old M presents with several days of intractable nausea and vomiting. Patient has been unable to take any thing orally and when he does he immediately throws it up. I just been progressively weak during this time and presented to the emergency room. Patient's creatinine was noted to be 3.96 and had a baseline creatinine from March of this year of 1.03. Patient also just feels very weak overall. Is not having diarrhea but does have constipation but did have a bowel movement earlier this week. Patient has opiate-induced constipation related with his narcotics. He denies any fever chills denies any contacts with COVID-19. [] Past Medical History Past Medical History (Chronic Problems): Chronic Problems (Last Reviewed 05/10/20 @ 11:[address] 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 Hakan Okeefe, DO) Abnormal biopsy result R89.7 [facility] PROSTATE 04/04/13 Diverticulitis K57.92 Elevated PSA R97.20 Erectile dysfunction after radical prostatectomy N52.31 GERD without esophagitis K21.9 History of bone scan Z92.89 [facility] 05/27/16 Hypercholesterolemia E78.00 Malignant neoplasm of prostate C61 Osteoarthritis M19.90 Osteoporosis M81.0 Port-A-Cath in place Z95.828 Stress incontinence, male N39.3 Unspecified retinal disorder H35.9 Unspecified visual disturbance H53.9 Hypertension I10 Allergies No Known Allergies Allergy (Verified 05/10/20 08:09) Home Medications: Ambulatory Orders Medication Instructions Recorded Lisinopril [Zestril] 20 mg PO QHS 03/23/13 Dexlansoprazole [Dexilant] 60 mg PO DAILY 01/16/19 Ezetimibe [Zetia] 10 mg PO QHS 01/16/19 Leuprolide acetate [Eligard] 22.5 mg SQ X1 01/16/19 Psyllium Husk (with Sugar) 3.4 gm PO DAILY 01/22/19 [Metamucil Packet] Ondansetron [Zofran Odt] 4 mg PO Q8H PRN PRN 10 Days #30 tab 01/29/19 Prochlorperazine Maleate 10 mg PO Q6H PRN PRN 10 Days #30 01/29/19 tab Polyethylene Glycol 3350 [Miralax] 17 gm PO DAILY 10/30/19 Fentanyl 50 mg TOPICAL UD 01/15/20 Oxycodone 5 mg PO BID 01/15/20 Magic Mouth Wash 15 ml PO Q6H PRN PRN #300 ml 04/23/20 Aspirin [Lo-Dose Aspirin EC] 81 mg PO DAILY 04/24/20 Prednisone 10 mg PO DAILY 60 Days #60 tab 04/24/20 Naloxegol Oxalate [Movantik] 12.5 mg PO DAILY 05/10/20 Surgical History: Surgical History (Last Reviewed 05/10/20 @ 11:[address] Hakan Okeefe DO) History of fusion of cervical spine Z98.1 History of radical prostatectomy Z90.79 2014 History of removal of Port-a-Cath Onset Date: ~03/2019 Z98.890 History of tonsillectomy Z90.89 Smoking Status: Never smoker - *Family History Maternal Family History: Family History (Last Reviewed 05/10/20 @ 11:[address] Hakan Okeefe DO) Brother CAD (coronary artery disease) Coronary artery disease involving coronary bypass graft Father CAD (coronary artery disease) Coronary artery disease involving coronary bypass graft Review of Systems Constitutional: Reports: Anorexia, Malaise, Weakness. Denies: Chills, Fever Eyes: Denies: Blurred vision, Double vision HEENT: Denies: Head Aches, Sinus Congestion, Sinus Drainage Cardiovascular: Denies: Chest Pain, Palpitations Respiratory: Denies: Cough, Shortness of breath at rest, Sputum production Gastrointestinal: Reports: Abdominal Pain, Constipation, Nausea, Vomiting. Denies: Diarrhea Genitourinary: Denies: Dysuria Musculoskeletal: Denies: Joint Pain, Joint Tenderness Skin: Denies: Rash, Wounds Neurological: Denies: Numbness, Tingling, Focal weakness Psychiatric: Denies: Anxiety, Depression Hematologic/ Lymphatic: Denies: Easy Bruising, Easy Bleeding, Hx of blood clot Comment: All review of systems were negative except as mentioned above in the history of present illness and the other review of systems. VTE Information - Inpt Only VTE Present on Admission: No VTE Mechan Device Prophylaxis: None VTE Pharm Prophylaxis ordered?: Yes Patient Problems: Active and Suspected Problems (Last Reviewed 05/10/20 @ 11:[address] Hakan Okeefe, DO) CAITLIN (acute kidney injury) (Acute) Intractable nausea and vomiting (Acute) - Physical Exam Vitals/I&O's: Vital Signs Temp Pulse Resp BP Pulse Ox 36.6 C 69 17 153/79 H 95 05/10/20 10:37 05/10/20 10:37 05/10/20 10:37 05/10/20 10:37 05/10/20 10:37 Oxygen Delivery Method Room Air Weight: 68.946 kg Body Mass Index (BMI) 23.1 Intake and Output for Last 24 Hours 05/08/20 05/09/20 05/10/20 23:59 23:59 23:59 Intake Total 1000 / 1000 Balance 1000 / 1000 General: Alert, No apparent distress HEENT: Atraumatic, Normocephalic Oral: Moist Mucosa, No Gingival or Mucosal Lesions/ Ulcerations Neck: No Nodes, Thyroid Normal Size and Texture Lungs: Clear to auscultation, Normal air movement, No rhonchi, No wheeze, No rales Cardiovascular: Regular rate, Regular Rhythm, Normal S1, Normal S2, No murmurs Abdomen: Bowel Sounds Present, Soft, No Hepato-splenomegaly, - - epigastric tenderness Psych/Mental Status: Normal Affect, Appropriate Laboratory Results 05/10/20 08:15: WBC 2.4 L, RBC 3.80 L, Hgb 11.5 L, Hct 35.7 L, MCV 93.9, MCH 30.3, MCHC 32.2, RDW Std Deviation 46.4 H, RDW Coeff of Barbara 13.5, Plt Count 208, MPV 10.0, Immature Gran % (Auto) 0.400, Neut % (Auto) 77.0 H, Lymph % (Auto) 13.0 L, [place] % (Auto) 9.2, Eos % (Auto) 0.0, Baso % (Auto) 0.4, Absolute Neuts (auto) 1.8 L, Absolute Lymphs (auto) 0.31 L, Nucleated RBC % 0 05/10/20 08:15: Sodium 135 L, Potassium 4.6, Chloride 99, Carbon Dioxide 28.0, Anion Gap 8, BUN 56 H, Creatinine 3.96 H, Estim Creat Clear Calc 18.47, Est GFR (MDRD) Af Amer 20 L, Est GFR (MDRD) Non-Af 16 L, BUN/Creatinine Ratio 14.1, Glucose 100, Calcium 9.4, Total Bilirubin 0.60, AST 28, ALT 14 L, Alkaline Phosphatase 66, Total Protein 8.1, Albumin 3.5, Globulin 4.6 H, Albumin/Globulin Ratio 0.8 L, Lipase 31 L Assessment/Plan All Active Problems (Last Reviewed 05/10/20 @ 11:[address] Hakan Okeefe, DO) Encounter for adjustment and management of vascular access device (Acute) Encounter for education (Acute) Chemotherapy management, encounter for (Acute) Chemotherapy follow-up examination (Acute) Mucositis (ulcerative) due to antineoplastic therapy (Acute) Erectile dysfunction after radical prostatectomy (Acute) Abscess (Acute) Left lower quadrant pain (Resolved) Constipation (Acute) Stomatitis (Acute) Neutropenia, drug-induced (Acute) CAITLIN (acute kidney injury) (Acute) Intractable nausea and vomiting (Acute) 1. CAITLIN * presumed prerenal +/- ischemic ATN * Plan: * check urine studies. * continue with IVF. * If worse, check renal US +/- nephro consult * hold lisinopril, though do not feel is the ultimate cause of the CAITLIN, it is certainly contributing 2. Intractable nausea and vomiting * unclear etiology * plan: * check abdominal xray to rule out SBO/ileus. Consider additional imaging (e.g., CT) if worse * antiemetics PRN 3. Metastatic prostate cancer: * to RP nodes and left supraclavicular node * last PSA 92.1 * last chemo was 04/29 with Jevtana. Continue prednisone * follow up with Drs. Cuenca and Sebastian 4. Chronic medical conditions: HTN, ED, OA, osteoporosis * stable, but overall complicate care and recovery 5. VTE prophylaxis: high-risk given underlying malignancy: LMWH 6. Disposition: anticipate 2-3 days. Depends on kidney recovery plus PO tolerance DW patient's sister at bedside. Inpatient E&M: 79892 Init Hosp L3
[2020-05-10 11:24] VITALS: BMI 24.9
[2020-05-10 11:35] VITALS: BP 154/85; PULSE 79; RESP 18; TEMP 37.2; O2SAT 98
--- NOTE | 2020-05-10 13:05 | RAD_ITS ---
EXAM: XR ABDOMEN, 2 VIEWS AND XR CHEST, 1 VIEW CLINICAL INDICATION: abdominal pain, nausea, hx prostate cancer TECHNIQUE: Frontal view of the chest, frontal view of the abdomen/pelvis and upright or decubitus view of the abdomen. This report was created using Sqwiggle report generation technology. COMPARISON: None. FINDINGS: CHEST: LUNGS AND PLEURAL SPACES: Atelectasis of the lung bases. No pneumothorax. No effusion. HEART: Unremarkable. Cardiac silhouette not enlarged. MEDIASTINUM: Central airways and mediastinal contour are unremarkable. ABDOMEN: INTRAPERITONEAL SPACE: No free air. GASTROINTESTINAL TRACT: Unremarkable. Non-obstructive. No bowel or stomach distention. ORGANS: Unremarkable as visualized. No organomegaly. No abnormal calcifications. TUBES, LINES AND DEVICES: None. BONES/JOINTS: Degenerative changes of the lumbar spine. SOFT TISSUES: No acute findings. RAD/Acute Abd Inc Chest (Portable) IMPRESSION: No acute findings in the chest, abdomen or pelvis. Electronically Signed: Adam Pacheco MD ([place]) at 14:47 EST , Service support ,
[2020-05-10 16:12] VITALS: BP 133/73; PULSE 78; RESP 18; TEMP 36.4; O2SAT 98
[2020-05-10] MEDS: 0.9% Saline Lock 10 ML Syringe IV (18:09)
[2020-05-10 19:42] VITALS: BP 120/66; PULSE 84; RESP 18; TEMP 37.4; O2SAT 94
[2020-05-10 23:12] LABS: Bacteria 0 SEEN /hpf (None Seen); Mucous, Urine 0 SEEN /hpf (<or=2+); Red Blood Cells-Urine 0 SEEN /hpf (0-5); Squamous Epithelial Cells - UA 0 SEEN /hpf (0-5)
[2020-05-10] MEDS: Calcium Carbonate 500 MG Tablet PO (23:19)
[2020-05-10 23:21] LABS: Color, Urine Yellow (Yellow); Glucose, Dipstick Normal (Normal); Ketone-Dipstick Negative (Negative); Leukocyte Esterase-Dipstick Negative /ul (Negative); Nitrite-Dipstick Negative (Negative); Occult Blood-Urine Negative /ul (Negative); Protein-Dipstick Negative (Negative); Specific Gravity, Urine 1.015 (1.002-1.030); Urine Bilirubin Dipstick Negative (Negative); Urine Clarity Clear (Clear); Urine Urobilinogen Normal (Normal)
[2020-05-10 23:33] LABS: White Blood Cells 0-5 SEEN /hpf (0-5)
[2020-05-10 23:45] LABS: Urine Sodium 25 mmol/L (Not Establ.)
[2020-05-11 02:05] VITALS: BP 114/58; PULSE 79; RESP 18; TEMP 37.3; O2SAT 93
[2020-05-11] MEDS: 0.9% Normal Saline 1,000 ML 150 ML IV ×3 (05:50→19:14)
[2020-05-11] MEDS: Ondansetron 4 MG/2 ML Vial IV ×2 (05:54→21:06)
[2020-05-11] MEDS: Morphine 2 MG/ML Syringe IV ×4 (05:54→21:06)
[2020-05-11 07:03] LABS: Absolute Lymphocyte Count 0.33 X10^3/uL (0.83-4.51); Absolute Neutrophil Count 1.5 X10^3/uL (2.0-7.7); Basophil# 0.01 X10^3/uL; Basophil% 0.4 % (0-1); Hematocrit 26.9 % (40-54); Hemoglobin 8.4 g/dL (13.0-16.5); Lymphocyte # 0.33 X10^3/ul (4.0); Lymphocyte % 14.4 % (19-41); Mean Corp Hgb Conc 31.2 g/dL (32-36); Mean Corpuscular Hgb 30.2 pg (27.0-32.0); Mean Corpuscular Volume 96.8 fL (80-94); Monocyte# 0.41 X10^3/uL; Monocyte% 17.9 % (0-10); NRBC Flagged by Analyzer 0 % (0-5); Neutrophil # 1.52 X10^3/uL (2.7-7.7); Neutrophil % 66.4 % (47-70); POSITIVE DIFFERENTIAL YES; Platelet Count 176 K/mm3 (150-450); RBC Distribution Width CV 14.1 % (11.6-14.6); Red Blood Count 2.78 M/mm3 (4.6-6.2); White Blood Count 2.3 K/mm3 (4.4-11.0)
[2020-05-11 07:06] LABS: Differential Indicated SCAN CRITERIA MET
[2020-05-11 07:30] LABS: Anion Gap 8 (5-15); BUN 53 mg/dL (7-18); Calcium,Total 8.2 mg/dL (8.5-10.1); Chloride 106 mmol/L (98-107); Creatinine, Serum 4.07 mg/dL (0.70-1.30); EST Glomerular Filtration Rate 16 mL/min (>60); Est Glom Filt Rate - Afr Amer 19 mL/min (>60); Estimated Creatinine Clearance 17.97 ml/min; Glucose 93 mg/dL (74-106); Potassium 4.4 mmol/L (3.5-5.1); Sodium Level 136 mmol/L (136-145)
[2020-05-11 07:35] LABS: Hypochromasia 1+; Platelet Estimate ADEQUATE (ADEQ)
--- NOTE | 2020-05-11 07:48 | US_ITS ---
STUDY: RENAL ULTRASOUND - COMPLETE REASON FOR EXAM: Male, 64 years old. CAITLIN TECHNIQUE: Ultrasound evaluation of the kidneys was performed with real-time and static modi-scale imaging. COMPARISON: Comparison is made with prior CT scan and abdomen dated 04/17/2020. FINDINGS: RIGHT KIDNEY: Normal location of the right kidney, which is normal in size. The right kidney measures 12.1 cm x 6.2 cm x 7 cm. There is a normal cortex of the right kidney. The renal cortex measures 1.4 cm. 3 renal cysts are seen. The largest measures 1.8 cm x 1.6 cm x 1.5 cm. There are no right renal calculi. There is no right hydronephrosis. DISTAL RIGHT URETER: There is non-visualization of the distal right ureter. There is no demonstrated right ureterovesical junction calculus. There is no demonstrated right ureteral jet. LEFT KIDNEY: Normal location of the left kidney, which is normal in size. The left kidney measures 12.2 cm x 6.1 cm x 5.9 cm. There is a normal cortex of the left kidney. The renal cortex measures 1.7 cm. There is no left renal mass or cyst. There are no left renal calculi. There is moderate hydronephrosis of the left kidney. DISTAL LEFT URETER: There is non-visualization of the distal left ureter. There is no demonstrated left ureterovesical junction calculus. There is no demonstrated left ureteral jet. BLADDER: The distended urinary bladder has a volume of 95 ml. There is a normal wall thickness of the distended urinary bladder. There is no demonstrated mass within the urinary bladder. There are no demonstrated bladder calculi. US/Kidney and Bladder IMPRESSION: Right renal cysts. Moderate degree of left hydronephrosis. Electronically Signed: Siva Dale MD at 9:05 EST , Service support ,
[2020-05-11] MEDS: Aspirin E.C. 81 MG Tablet PO (08:32)
[2020-05-11] MEDS: predniSONE 10 MG Tablet PO (08:33)
[2020-05-11 08:43] VITALS: BP 126/75; PULSE 53; RESP 18; TEMP 36.8; O2SAT 94
[2020-05-11 08:44] VITALS: RESP 18
[2020-05-11] MEDS: Enoxaparin 30 MG/0.3 ML Syringe SC (09:49)
[2020-05-11] MEDS: Pantoprazole Sodium 40 MG Tablet PO (09:50)
--- NOTE | 2020-05-11 14:01 | PCM.PN.HOSP ---
Patient Problems: Active and Suspected Problems (Last Reviewed 05/10/20 @ 11:[address] Hakan Okeefe, DO) CAITLIN (acute kidney injury) (Acute) Intractable nausea and vomiting (Acute) Subjective: Feels much better. Tolerating PO, urine output improving. Vitals/I&O's: Vital Signs Temp Pulse Resp BP Pulse Ox 36.8 C 53 L 18 126/75 H 94 05/11/20 08:43 05/11/20 08:43 05/11/20 08:44 05/11/20 08:43 05/11/20 08:43 Oxygen Delivery Method Room Air Weight: 74.3 kg Body Mass Index (BMI) 24.9 Intake and Output for Last 24 Hours 05/09/20 05/10/20 05/11/20 23:59 23:59 23:59 Intake Total 5517.5 / 5517.5 2727.5 / 2727.5 Output Total 450 / 450 700 / 700 Balance 5067.5 / 5067.5 2027.5 / 2027.5 General: Alert, No apparent distress HEENT: Atraumatic, Normocephalic Oral: Moist Mucosa, No Gingival or Mucosal Lesions/ Ulcerations Neck: No Nodes, Thyroid Normal Size and Texture Lungs: Clear to auscultation, Normal air movement, No rhonchi, No wheeze, No rales Cardiovascular: Regular rate, Regular Rhythm, Normal S1, Normal S2, No murmurs Abdomen: Bowel Sounds Present, Soft, Non Tender, Non-Distended, No Hepato-splenomegaly Extremities: No edema, No Calf Tenderness Skin: No rashes, No breakdown Psych/Mental Status: Normal Affect, Appropriate Laboratory Results 05/10/20 08:15: Diff Path Review July05/10/20 23:04: Urine Color Yellow, Urine Clarity Clear, Urine pH 6.0, Ur Specific Archer 1.015, Urine Protein Negative, Urine Glucose (UA) Normal, Urine Ketones Negative, Urine Occult Blood Negative, Urine Nitrite Negative, Urine Bilirubin Negative, Urine Urobilinogen Normal, Ur Leukocyte Esterase Negative, Urine RBC 0 SEEN, Urine WBC 0-5 SEEN, Ur Squamous Epith Cells 0 SEEN, Urine Bacteria 0 SEEN, Urine Mucus 0 SEEN 05/10/20 23:04: Ur Random Sodium 25, Urine Creatinine 81.70 05/11/20 06:08: WBC 2.3 L, RBC 2.78 L, Hgb 8.4 L, Hct 26.9 L, MCV 96.8 H, MCH 30.2, MCHC 31.2 L, RDW Std Deviation 50.0 H, RDW Coeff of Barbara 14.1, Plt Count 176, MPV 10.0, Immature Gran % (Auto) 0.900, Neut % (Auto) 66.4, Lymph % (Auto) 14.4 L, [place] % (Auto) 17.9 H, Eos % (Auto) 0.0, Baso % (Auto) 0.4, Absolute Neuts (auto) 1.5 L, Absolute Lymphs (auto) 0.33 L, Nucleated RBC % 0, Diff Path Review July, Platelet Estimate ADEQUATE, Hypochromasia 1+ 05/11/20 06:08: Sodium 136, Potassium 4.4, Chloride 106, Carbon Dioxide 22.0, Anion Gap 8, BUN 53 H, Creatinine 4.07 H, Estim Creat Clear Calc 17.97, Est GFR (MDRD) Af Amer 19 L, Est GFR (MDRD) Non-Af 16 L, BUN/Creatinine Ratio 13.0, Glucose 93, Calcium 8.2 L Current Medications Acetaminophen (Acetaminophen 325 Mg Tablet) 650 mg PO Q6H PRN PRN PRN Reason: Pain Score 1-10/Temp > 100.7 F Aspirin (Aspirin E.C. 81 Mg Tablet) [facility] Last Admin: 05/11/20 08:32 Dose: 81 mg Documented by: Calcium Carbonate (Calcium Carbonate 500 Mg Tablet) 500 mg PO Q4H PRN PRN PRN Reason: HEARTBURN Last Admin: 05/10/20 23:19 Dose: 500 mg Documented by: Enoxaparin Sodium (Enoxaparin 30 Mg/0.3 Ml Syringe) 30 mg SC DAILY [facility] Last Admin: 05/11/20 09:49 Dose: 30 mg Documented by: Fentanyl (Fentanyl 50 Mcg Patch) 50 mcg TD Q72H [facility] Sodium Chloride () 1,000 mls @ 150 mls/hr IV .Q6H40M [facility] Last Admin: 05/11/20 12:42 Dose: 150 mls/hr Documented by: Lidocaine/Diphenhydr/Alum/Mg/Simeth (Bmx Liquid 180 Ml) 15 ml PO ACHS PRN PRN Reason: ORAL PAIN Morphine Sulfate (Morphine 2 Mg/Ml Syringe) 2 mg IV Q3H PRN PRN PRN Reason: Pain Score 6-10 Last Admin: 05/11/20 08:31 Dose: 2 mg Documented by: Ondansetron HCl (Ondansetron 4 Mg/2 Ml Vial) 4 mg IV Q8H PRN PRN PRN Reason: NAUSEA/VOMITING Last Admin: 05/11/20 05:54 Dose: 4 mg Documented by: Oxycodone HCl (Oxycodone 5 Mg Tablet) 5 mg PO Q6H PRN PRN Reason: Pain Score 4-5 Pantoprazole Sodium (Pantoprazole Sodium 40 Mg Tablet) 40 mg PO DAILY [facility] Last Admin: 05/11/20 09:50 Dose: 40 mg Documented by: Polyethylene Glycol (Polyethylene Glycol 3350 17 Gm Packet) 17 gm PO DAILY PRN PRN PRN Reason: CONSTIPATION Prednisone (Pred[facility] 10 Mg Tablet) [facility] Last Admin: 05/11/20 08:33 Dose: 10 mg Documented by: Prochlorperazine Maleate (Prochlorperazine 5 Mg Tablet) 10 mg PO Q6H PRN PRN PRN Reason: NAUSEA Senna/Docusate Sodium (Senna/Docusate Sodium 1 Tablet) 2 tablet PO BID PRN PRN PRN Reason: CONSTIPATION Sodium Chloride (0.9% Saline Lock 10 Ml Syringe) 10 - 40 ml IV UD PRN PRN Reason: SALINE FLUSH Last Admin: 05/10/20 18:09 Dose: 10 ml Documented by: Medical Necessity - Tobacco Use Smoking Status: Never smoker Assessment/Plan All Active Problems (Last Reviewed 05/10/20 @ 11:[address] Hakan Okeefe, DO) Encounter for adjustment and management of vascular access device (Acute) Encounter for education (Acute) Chemotherapy management, encounter for (Acute) Chemotherapy follow-up examination (Acute) Mucositis (ulcerative) due to antineoplastic therapy (Acute) Erectile dysfunction after radical prostatectomy (Acute) Abscess (Acute) Left lower quadrant pain (Resolved) Constipation (Acute) Stomatitis (Acute) Neutropenia, drug-induced (Acute) CAITLIN (acute kidney injury) (Acute) Intractable nausea and vomiting (Acute) 1. CAITLIN urine outpt improved, but creatinine worse today. presumed prerenal +/- ischemic ATN Plan: continue with IVF. check US hold lisinopril, though do not feel is the ultimate cause of the CAITLIN, it is certainly contributing consider nephro consult if worse 2. Intractable nausea and vomiting unclear etiology improved abd xray negative plan: advance diet antiemetics PRN 3. Metastatic prostate cancer: to RP nodes and left supraclavicular node last PSA 92.1 last chemo was 04/29 with Jevtana. Continue prednisone follow up with Drs. Cuenca and Sebastian 4. Chronic medical conditions: HTN, ED, OA, osteoporosis stable, but overall complicate care and recovery 5. VTE prophylaxis: high-risk given underlying malignancy: LMWH Inpatient E&M: 55188 Subs Hosp L2
[2020-05-11] MEDS: 0.9% Saline Lock 10 ML Syringe IV (14:38)
[2020-05-11 15:02] LABS: Ferritin 358 ng/mL (26-388); Iron 23 ug/dL (65-175); Iron Binding Capacity,Total 177 ug/dL (250-450)
[2020-05-11 17:00] VITALS: RESP 18
[2020-05-11] MEDS: BMX LIQUID 180 ML 15 ML PO (17:56)
[2020-05-11 20:55] VITALS: BP 133/65; PULSE 67; RESP 16; TEMP 37.2; O2SAT 95
[2020-05-12] MEDS: Morphine 2 MG/ML Syringe IV (01:42)
[2020-05-12] MEDS: 0.9% Normal Saline 1,000 ML 150 ML IV ×4 (01:42→21:15)
[2020-05-12] MEDS: proCHLORPERazine 5 MG Tablet 10 MG PO (01:43)
[2020-05-12 02:55] VITALS: BP 126/60; PULSE 58; RESP 16; TEMP 37.1; O2SAT 97
[2020-05-12 06:31] LABS: Absolute Lymphocyte Count 0.46 X10^3/uL (0.83-4.51); Absolute Neutrophil Count 1.5 X10^3/uL (2.0-7.7); Basophil# 0.01 X10^3/uL; Basophil% 0.4 % (0-1); Eosinophil# 0.01 X10^3/uL; Eosinophils% 0.4 % (0-5); Hematocrit 27.6 % (40-54); Hemoglobin 8.6 g/dL (13.0-16.5); Lymphocyte # 0.46 X10^3/ul (4.0); Lymphocyte % 18.5 % (19-41); Mean Corp Hgb Conc 31.2 g/dL (32-36); Mean Corpuscular Hgb 30.5 pg (27.0-32.0); Mean Corpuscular Volume 97.9 fL (80-94); Mean Platelet Vol. 10.1 fl (6.2-12.0); Monocyte# 0.52 X10^3/uL; NRBC Flagged by Analyzer 0 % (0-5); Neutrophil # 1.46 X10^3/uL (2.7-7.7); Neutrophil % 58.9 % (47-70); POSITIVE DIFFERENTIAL YES; Platelet Count 168 K/mm3 (150-450); RBC Distribution Width CV 13.9 % (11.6-14.6); RBC Distribution Width SD 49.5 fl (35.1-43.9); Red Blood Count 2.82 M/mm3 (4.6-6.2); White Blood Count 2.5 K/mm3 (4.4-11.0)
[2020-05-12 06:33] LABS: Differential Indicated SCAN CRITERIA MET
[2020-05-12 07:04] LABS: Anion Gap 9 (5-15); BUN 51 mg/dL (7-18); BUN/Creat Ratio 12.9 RATIO (10-20); Calcium,Total 8.3 mg/dL (8.5-10.1); Chloride 110 mmol/L (98-107); Creatinine, Serum 3.95 mg/dL (0.70-1.30); EST Glomerular Filtration Rate 16 mL/min (>60); Est Glom Filt Rate - Afr Amer 20 mL/min (>60); Estimated Creatinine Clearance 18.52 ml/min; Ferritin 518 ng/mL (26-388); Glucose 61 mg/dL (74-106); Iron 22 ug/dL (65-175); Iron Binding Capacity,Total 139 ug/dL (250-450); PERCENT IRON SATURATION 15.8 % (15.0-55.0); Potassium 4.8 mmol/L (3.5-5.1); Sodium Level 139 mmol/L (136-145)
[2020-05-12] MEDS: Aspirin E.C. 81 MG Tablet PO (08:20)
[2020-05-12] MEDS: predniSONE 10 MG Tablet PO (08:20)
[2020-05-12] MEDS: 0.9% Saline Lock 10 ML Syringe IV ×4 (08:20→21:16)
[2020-05-12 08:24] VITALS: BP 135/71; PULSE 60; RESP 18; TEMP 37.1; O2SAT 97
[2020-05-12 08:30] VITALS: PULSE 56
[2020-05-12] MEDS: oxyCODONE 5 MG Tablet PO ×2 (08:31→18:38)
[2020-05-12] MEDS: Ondansetron 4 MG/2 ML Vial IV ×2 (08:31→16:43)
[2020-05-12 08:54] LABS: Vitamin B12 688 pg/mL (211-911)
[2020-05-12] MEDS: Pantoprazole Sodium 40 MG Tablet PO (10:41)
[2020-05-12] MEDS: Enoxaparin 30 MG/0.3 ML Syringe SC (10:42)
--- NOTE | 2020-05-12 10:55 | CASEMGMT ---
RN KRISTEN Face to Face with patient for initial transition planning/care coordination assessment. RN CM introduced self and role at [facility]. Patient lying in bed, alert and oriented. Patient willing to participate in assessment and is able to answer all questions appropriately. Care providers, pharmacy, and demographics verified. Patient wishes to discharge home, denies need for home health at this time. Patient states he has no further needs or concerns at this time. CM to follow for discharge planning needs that may arise. PCP: [facility] Specialists: Bang, oncologist; Trudy, radiologist Preferred Pharmacy: [facility] Insurance: [place] Prescription Benefit: yes Living Will/HPOA: none LNOK: daughter, girlfriend Living Arrangements: Patient lives alone in a single story home with 1 step and grab bar to enter. Patient states his girlfriend stays with him or he stays at his girlfriends house. Patient states he is independent at home. Transportation: self/girlfriend DME/HHC: Patient states he has shower chair, raised toilet, cane, walker, and grab bars. Patient denies previous HHC. Disposition Plan: Patient to discharge home with family support and follow-up plans in place. Amber JAVIER, RN, CM
--- NOTE | 2020-05-12 11:54 | PCM.CONS.R ---
Consultation - Renal PCP/ Referring MD: Requesting physician: [] Primary care physician: Dr. Denny Carrasco DO - History of Present Illness History of Present Illness: The patient is a 64 year old M PMH oh prostate CA with lymph nodes metastasis. follows with Dr. Cuenca in urology clinic for treatment. Patient has been on chemo/RT treatment for almost a year. Patient receives Jevtana every 3 weeks. Patient also received radiation therapy to right supraclavicular LN mets 3 weeks ago Patient presented on 05/10 with few days of nausea and vomiting with poor oral intake Patient was found to have CAITLIN . Patient has been on IVF since admission NS at 150 cc/hour Cr remains at 3.9 mg/ this am so renal team is consulted for CAITLIN management. baseline Cr around 0.8 mg/dl in Mar 2020 Renal US showed L side moderate hydronephrosis. UA is benIGN No IV contrast exposure. No NSAIDs use reported normal micturition ROS: 12 systems review is negative today. no N/V/D/ [] - Allergies Allergies: Allergies No Known Allergies Allergy (Verified 05/10/20 08:09) - Current Medications Current Medications: Current Medications Acetaminophen (Acetaminophen 325 Mg Tablet) 650 mg PO Q6H PRN PRN PRN Reason: Pain Score 1-10/Temp > 100.7 F Aspirin (Aspirin E.C. 81 Mg Tablet) [facility] Last Admin: 05/12/20 08:20 Dose: 81 mg Documented by: Calcium Carbonate (Calcium Carbonate 500 Mg Tablet) 500 mg PO Q4H PRN PRN PRN Reason: HEARTBURN Last Admin: 05/10/20 23:19 Dose: 500 mg Documented by: Enoxaparin Sodium (Enoxaparin 30 Mg/0.3 Ml Syringe) 30 mg SC DAILY [facility] Last Admin: 05/12/20 10:42 Dose: 30 mg Documented by: Fentanyl (Fentanyl 50 Mcg Patch) 50 mcg TD Q72H [facility] Last Admin: 05/11/20 17:55 Dose: 50 mcg Documented by: Sodium Chloride () 1,000 mls @ 150 mls/hr IV .Q6H40M [facility] Last Admin: 05/12/20 08:35 Dose: 150 mls/hr Documented by: Lidocaine/Diphenhydr/Alum/Mg/Simeth (Bmx Liquid 180 Ml) 15 ml PO ACHS PRN PRN Reason: ORAL PAIN Last Admin: 05/11/20 17:56 Dose: 15 ml Documented by: Morphine Sulfate (Morphine 2 Mg/Ml Syringe) 2 mg IV Q3H PRN PRN PRN Reason: Pain Score 6-10 Last Admin: 05/12/20 01:42 Dose: 2 mg Documented by: Ondansetron HCl (Ondansetron 4 Mg/2 Ml Vial) 4 mg IV Q8H PRN PRN PRN Reason: NAUSEA/VOMITING Last Admin: 05/12/20 08:31 Dose: 4 mg Documented by: Oxycodone HCl (Oxycodone 5 Mg Tablet) 5 mg PO Q6H PRN PRN Reason: Pain Score 4-5 Last Admin: 05/12/20 08:31 Dose: 5 mg Documented by: Pantoprazole Sodium (Pantoprazole Sodium 40 Mg Tablet) 40 mg PO DAILY [facility] Last Admin: 05/12/20 10:41 Dose: 40 mg Documented by: Polyethylene Glycol (Polyethylene Glycol 3350 17 Gm Packet) 17 gm PO DAILY PRN PRN PRN Reason: CONSTIPATION Prednisone (Prednisone 10 Mg Tablet) [facility] Last Admin: 05/12/20 08:20 Dose: 10 mg Documented by: Prochlorperazine Maleate (Prochlorperazine 5 Mg Tablet) 10 mg PO Q6H PRN PRN PRN Reason: NAUSEA Last Admin: 05/12/20 01:43 Dose: 10 mg Documented by: Senna/Docusate Sodium (Senna/Docusate Sodium 1 Tablet) 2 tablet PO BID PRN PRN PRN Reason: CONSTIPATION Sodium Chloride (0.9% Saline Lock 10 Ml Syringe) 10 - 40 ml IV UD PRN PRN Reason: SALINE FLUSH Last Admin: 05/12/20 08:31 Dose: 10 ml Documented by: - Past Medical History Past Medical History (Chronic Problems): Chronic Problems (Last Reviewed 05/10/20 @ 11:[address] 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 Hakan Okeefe DO) Brother CAD (coronary artery disease) Coronary artery disease involving coronary bypass graft Father CAD (coronary artery disease) Coronary artery disease involving coronary bypass graft Patient Problems: Active and Suspected Problems (Last Reviewed 05/10/20 @ 11:[address] Hakan Okeefe DO) CAITLIN (acute kidney injury) (Acute) Intractable nausea and vomiting (Acute) - Physical Exam Vitals/I&O's: Vital Signs Temp Pulse Resp BP Pulse Ox 98.8 F 56 L 18 135/71 H 97 05/12/20 08:24 05/12/20 08:30 05/12/20 08:24 05/12/20 08:24 05/12/20 08:24 Oxygen Delivery Method Room Air Weight: 74.3 kg Body Mass Index (BMI) 24.9 Intake and Output for Last 24 Hours 05/10/20 05/11/20 05/12/20 23:59 23:59 23:59 Intake Total 5517.5 / 5517.5 4307.5 / 4557.5 2220 / 2220 Output Total 450 / 450 1000 / 1500 800 / 800 Balance 5067.5 / 5067.5 3307.5 / 3057.5 1420 / 1420 General: Alert, Oriented x3 HEENT: Atraumatic Oral: Moist Mucosa Neck: Supple, No JVD Lungs: Clear to auscultation, Normal air movement, No rhonchi Cardiovascular: Regular rate, Regular Rhythm, Normal S1 Abdomen: Bowel Sounds Present, Soft, Non Tender, Non-Distended Extremities: No clubbing, No cyanosis, No edema Skin: No rashes Musculoskeletal: No Tenderness to Palpation of Joints or Extremities Neurological: Cranial nerves II-XII grossly intact, Neuro grossly intact Psych/Mental Status: Appropriate Laboratory Results 05/11/20 06:08: Iron 23 L, TIBC 177 L, Iron Saturation 13.0 L, Ferritin 358 05/12/20 06:10: Vitamin B12 688 05/12/20 06:10: WBC 2.5 L, RBC 2.82 L, Hgb 8.6 L, Hct 27.6 L, MCV 97.9 H, MCH 30.5, MCHC 31.2 L, RDW Std Deviation 49.5 H, RDW Coeff of Barbara 13.9, Plt Count 168, MPV 10.1, Immature Gran % (Auto) 0.800, Neut % (Auto) 58.9, Lymph % (Auto) 18.5 L, [place] % (Auto) 21.0 H, Eos % (Auto) 0.4, Baso % (Auto) 0.4, Absolute Neuts (auto) 1.5 L, Absolute Lymphs (auto) 0.46 L, Nucleated RBC % 0, Diff Path Review July05/12/20 06:10: Sodium 139, Potassium 4.8, Chloride 110 H, Carbon Dioxide 20.0 L, Anion Gap 9, BUN 51 H, Creatinine 3.95 H, Estim Creat Clear Calc 18.52, Est GFR (MDRD) Af Amer 20 L, Est GFR (MDRD) Non-Af 16 L, BUN/Creatinine Ratio 12.9, Glucose 61 L, Calcium 8.3 L, Iron 22 L, TIBC 139 L, Iron Saturation 15.8, Ferritin 518 H 05/12/20 06:10: RBC Folate Hemolysate Pending, RBC Folate Pending, Hematocrit Pending Current Medications Acetaminophen (Acetaminophen 325 Mg Tablet) 650 mg PO Q6H PRN PRN PRN Reason: Pain Score 1-10/Temp > 100.7 F Aspirin (Aspirin E.C. 81 Mg Tablet) [facility] Last Admin: 05/12/20 08:20 Dose: 81 mg Documented by: Calcium Carbonate (Calcium Carbonate 500 Mg Tablet) 500 mg PO Q4H PRN PRN PRN Reason: HEARTBURN Last Admin: 05/10/20 23:19 Dose: 500 mg Documented by: Enoxaparin Sodium (Enoxaparin 30 Mg/0.3 Ml Syringe) 30 mg SC DAILY [facility] Last Admin: 05/12/20 10:42 Dose: 30 mg Documented by: Fentanyl (Fentanyl 50 Mcg Patch) 50 mcg TD Q72H [facility] Last Admin: 05/11/20 17:55 Dose: 50 mcg Documented by: Sodium Chloride () 1,000 mls @ 150 mls/hr IV .Q6H40M [facility] Last Admin: 05/12/20 08:35 Dose: 150 mls/hr Documented by: Lidocaine/Diphenhydr/Alum/Mg/Simeth (Bmx Liquid 180 Ml) 15 ml PO ACHS PRN PRN Reason: ORAL PAIN Last Admin: 05/11/20 17:56 Dose: 15 ml Documented by: Morphine Sulfate (Morphine 2 Mg/Ml Syringe) 2 mg IV Q3H PRN PRN PRN Reason: Pain Score 6-10 Last Admin: 05/12/20 01:42 Dose: 2 mg Documented by: Ondansetron HCl (Ondansetron 4 Mg/2 Ml Vial) 4 mg IV Q8H PRN PRN PRN Reason: NAUSEA/VOMITING Last Admin: 05/12/20 08:31 Dose: 4 mg Documented by: Oxycodone HCl (Oxycodone 5 Mg Tablet) 5 mg PO Q6H PRN PRN Reason: Pain Score 4-5 Last Admin: 05/12/20 08:31 Dose: 5 mg Documented by: Pantoprazole Sodium (Pantoprazole Sodium 40 Mg Tablet) 40 mg PO DAILY [facility] Last Admin: 05/12/20 10:41 Dose: 40 mg Documented by: Polyethylene Glycol (Polyethylene Glycol 3350 17 Gm Packet) 17 gm PO DAILY PRN PRN PRN Reason: CONSTIPATION Prednisone (Prednisone 10 Mg Tablet) [facility] Last Admin: 05/12/20 08:20 Dose: 10 mg Documented by: Prochlorperazine Maleate (Prochlorperazine 5 Mg Tablet) 10 mg PO Q6H PRN PRN PRN Reason: NAUSEA Last Admin: 05/12/20 01:43 Dose: 10 mg Documented by: Senna/Docusate Sodium (Senna/Docusate Sodium 1 Tablet) 2 tablet PO BID PRN PRN PRN Reason: CONSTIPATION Sodium Chloride (0.9% Saline Lock 10 Ml Syringe) 10 - 40 ml IV UD PRN PRN Reason: SALINE FLUSH Last Admin: 05/12/20 08:31 Dose: 10 ml Documented by: Assessment/Plan All Active Problems (Last Reviewed 05/10/20 @ 11:[address] Hakan Okeefe, DO) Encounter for adjustment and management of vascular access device (Acute) Encounter for education (Acute) Chemotherapy management, encounter for (Acute) Chemotherapy follow-up examination (Acute) Mucositis (ulcerative) due to antineoplastic therapy (Acute) Erectile dysfunction after radical prostatectomy (Acute) Abscess (Acute) Left lower quadrant pain (Resolved) Constipation (Acute) Stomatitis (Acute) Neutropenia, drug-induced (Acute) CAITLIN (acute kidney injury) (Acute) Intractable nausea and vomiting (Acute) 1- Acute kidney injury . Cr was 0.8 mg/dl in Mar 2020 UA is benign. FeNa 0.9% CAITLIN is likely from prerenal azotemia from nausea/vomiting and being on ACEI Cr remains elevated at 3.9 mg/dl despite IVF but UOP has increased. patient could also has CAITLIN from Jevtana Continue IVF for now Continue holding home ACEI No need for [employer] Avoid IV contrast Check RFP in am 2- Left side hydronephrosis. Patient needs urology evaluation since he is has active prostate CA 3- HTN: BP is well controlled continue holding home ACEI 4- Nausea / vomiting. KUB is normal Now resolved Thank you for the consult. Renal team will continue to follow Please call if any question or concern at [phone] d/w Dr. Julissa Morgan MD
[2020-05-12 13:09] LABS: Pathologist Review Reviewed
[2020-05-12 13:09] LABS: Pathologist Review Reviewed
[2020-05-12 13:23] LABS: Pathologist Review Reviewed
[2020-05-12 14:31] VITALS: BP 124/67; PULSE 60; RESP 16; TEMP 36.7; O2SAT 93
--- NOTE | 2020-05-12 14:36 | PN_ITS ---
Patient Problems: Active and Suspected Problems (Last Reviewed 05/10/20 @ 11:[address] Hakan Okeefe, DO) CAITLIN (acute kidney injury) (Acute) Intractable nausea and vomiting (Acute) Subjective: Patient seen and examined. He has no complaints and feels well. Review of systems otherwise negative. He is making urine and urine is clear. He has remained hemodynamically stable. Vitals/I&O's: Vital Signs Temp Pulse Resp BP Pulse Ox 98.1 F 60 16 124/67 H 93 05/12/20 14:31 05/12/20 14:31 05/12/20 14:31 05/12/20 14:31 05/12/20 14:31 Oxygen Delivery Method Room Air Weight: 163 lb 12.855 oz Body Mass Index (BMI) 24.9 Intake and Output for Last 24 Hours 05/10/20 05/11/20 05/12/20 23:59 23:59 23:59 Intake Total 5517.5 / 5517.5 4307.5 / 4557.5 2520 / 2520 Output Total 450 / 450 1000 / 1500 800 / 800 Balance 5067.5 / 5067.5 3307.5 / 3057.5 1720 / 1720 General: Alert, Oriented x3, Cooperative HEENT: Atraumatic, PERRLA, EOMI, Normocephalic Neck: Supple, No JVD, Negative Carotid Bruits Lungs: Clear to auscultation, Normal air movement Cardiovascular: Regular rate, No murmurs Abdomen: Bowel Sounds Present, Soft, Non Tender Extremities: No edema, Capillary Refill Less than 3 Seconds Skin: No rashes, No breakdown Musculoskeletal: No Tenderness to Palpation of Joints or Extremities Neurological: Cranial nerves II-XII grossly intact, Neuro grossly intact, Motor Exam 5/5 strength throughout Psych/Mental Status: Normal Affect, Appropriate, Alert and oriented to time, place, person, mood and affect Laboratory Results 05/10/20 08:15: Diff Path Review Reviewed 05/11/20 06:08: Diff Path Review Reviewed 05/11/20 06:08: Iron 23 L, TIBC 177 L, Iron Saturation 13.0 L, Ferritin 358 05/12/20 06:10: Vitamin B12 688 05/12/20 06:10: WBC 2.5 L, RBC 2.82 L, Hgb 8.6 L, Hct 27.6 L, MCV 97.9 H, MCH 30.5, MCHC 31.2 L, RDW Std Deviation 49.5 H, RDW Coeff of Barbara 13.9, Plt Count 168, MPV 10.1, Immature Gran % (Auto) 0.800, Neut % (Auto) 58.9, Lymph % (Auto) 18.5 L, [place] % (Auto) 21.0 H, Eos % (Auto) 0.4, Baso % (Auto) 0.4, Absolute Neuts (auto) 1.5 L, Absolute Lymphs (auto) 0.46 L, Nucleated RBC % 0, Diff Path Review Reviewed 05/12/20 06:10: Sodium 139, Potassium 4.8, Chloride 110 H, Carbon Dioxide 20.0 L , Anion Gap 9, BUN 51 H, Creatinine 3.95 H, Estim Creat Clear Calc 18.52, Est GFR (MDRD) Af Amer 20 L, Est GFR (MDRD) Non-Af 16 L, BUN/Creatinine Ratio 12.9, Glucose 61 L, Calcium 8.3 L, Iron 22 L, TIBC 139 L, Iron Saturation 15.8, Ferritin 518 H 05/12/20 06:10: RBC Folate Hemolysate Pending, RBC Folate Pending, Hematocrit Pending Diagnostic Data Acute Abdomen Series 05/10/20 13:05 IMPRESSION: No acute findings in the chest, abdomen or pelvis. Electronically Signed: Adam Pacheco MD ([place]) at 14:47 EST , Service support , Renal Ultrasound 05/11/20 07:48 IMPRESSION: Right renal cysts. Moderate degree of left hydronephrosis. Electronically Signed: Siva Dale MD at 9:05 EST , Service support , Current Medications Acetaminophen (Acetaminophen 325 Mg Tablet) 650 mg PO Q6H PRN PRN PRN Reason: Pain Score 1-10/Temp > 100.7 F Aspirin (Aspirin E.C. 81 Mg Tablet) 81 mg PO DAILY[facility] Last Admin: 05/12/20 08:20 Dose: 81 mg Documented by: Calcium Carbonate (Calcium Carbonate 500 Mg Tablet) 500 mg PO Q4H PRN PRN PRN Reason: HEARTBURN Last Admin: 05/10/20 23:19 Dose: 500 mg Documented by: Enoxaparin Sodium (Enoxaparin 30 Mg/0.3 Ml Syringe) 30 mg SC DAILY [facility] Last Admin: 05/12/20 10:42 Dose: 30 mg Documented by: Fentanyl (Fentanyl 50 Mcg Patch) 50 mcg TD Q72H [facility] Last Admin: 05/11/20 17:55 Dose: 50 mcg Documented by: Sodium Chloride () 1,000 mls @ 150 mls/hr IV .Q6H40M [facility] Last Admin: 05/12/20 08:35 Dose: 150 mls/hr Documented by: Lidocaine/Diphenhydr/Alum/Mg/Simeth (Bmx Liquid 180 Ml) 15 ml PO ACHS PRN PRN Reason: ORAL PAIN Last Admin: 05/11/20 17:56 Dose: 15 ml Documented by: Morphine Sulfate (Morphine 2 Mg/Ml Syringe) 2 mg IV Q3H PRN PRN PRN Reason: Pain Score 6-10 Last Admin: 05/12/20 01:42 Dose: 2 mg Documented by: Ondansetron HCl (Ondansetron 4 Mg/2 Ml Vial) 4 mg IV Q8H PRN PRN PRN Reason: NAUSEA/VOMITING Last Admin: 05/12/20 08:31 Dose: 4 mg Documented by: Oxycodone HCl (Oxycodone 5 Mg Tablet) 5 mg PO Q6H PRN PRN Reason: Pain Score 4-5 Last Admin: 05/12/20 08:31 Dose: 5 mg Documented by: Pantoprazole Sodium (Pantoprazole Sodium 40 Mg Tablet) 40 mg PO DAILY [facility] Last Admin: 05/12/20 10:41 Dose: 40 mg Documented by: Polyethylene Glycol (Polyethylene Glycol 3350 17 Gm Packet) 17 gm PO DAILY PRN PRN PRN Reason: CONSTIPATION Prednisone ([facility] Last Admin: 05/12/20 08:20 Dose: 10 mg Documented by: Prochlorperazine Maleate (Prochlorperazine 5 Mg Tablet) 10 mg PO Q6H PRN PRN PRN Reason: NAUSEA Last Admin: 05/12/20 01:43 Dose: 10 mg Documented by: Senna/Docusate Sodium (Senna/Docusate Sodium 1 Tablet) 2 tablet PO BID PRN PRN PRN Reason: CONSTIPATION Sodium Chloride (0.9% Saline Lock 10 Ml Syringe) 10 - 40 ml IV UD PRN PRN Reason: SALINE FLUSH Last Admin: 05/12/20 08:31 Dose: 10 ml Documented by: STROKE Vital Signs/Narrative: Vital Signs Temp Pulse Resp BP Pulse Ox 05/12/20 14:31 98.1 F 60 16 124/67 H 93 Medical Necessity - Tobacco Use Smoking Status: Never smoker Assessment/Plan All Active Problems (Last Reviewed 05/10/20 @ 11:[address] Hakan Okeefe, DO) Encounter for adjustment and management of vascular access device (Acute) Encounter for education (Acute) Chemotherapy management, encounter for (Acute) Chemotherapy follow-up examination (Acute) Mucositis (ulcerative) due to antineoplastic therapy (Acute) Erectile dysfunction after radical prostatectomy (Acute) Abscess (Acute) Left lower quadrant pain (Resolved) Constipation (Acute) Stomatitis (Acute) Neutropenia, drug-induced (Acute) CAITLIN (acute kidney injury) (Acute) Intractable nausea and vomiting (Acute) #CAITLIN * CR is 3.95 today, with a baseline of 0.7 * renal USG showed moderate right sided hydronephrosis * FeNA was also low, suggeting a pre-renal component * continue hydration with IVF * consult nephrology * urology also consulted o/a of hydronephrosis * lisinopril on hold * #Intractable nausea and vomiting: resovle.d #Metastatic prostate cancer * receiving chemotherapy. Has completed radiation. * on prednisone * mets to the lymph nodes * follow up with oncology and radiation oncology on outpatient basis * #HTN: Lisinopril on hold on account of CAITLIN. #Hyperlipidemia: On ezetimibe osteoarthritis: stable DVT prophylaxis: lovenox Inpatient E&M: [id number] [facility] Hosp L2
[2020-05-12 20:30] VITALS: BP 136/74; PULSE 66; RESP 16; TEMP 36.9; O2SAT 96
[2020-05-13] MEDS: Morphine 2 MG/ML Syringe IV ×6 (00:53→22:12)
[2020-05-13 02:30] VITALS: BP 150/74; PULSE 67; RESP 16; TEMP 36.7; O2SAT 96
[2020-05-13 07:47] VITALS: BP 135/72; PULSE 91; RESP 16; TEMP 36.8; O2SAT 94
[2020-05-13] MEDS: Pantoprazole Sodium 40 MG Tablet PO (09:05)
[2020-05-13 09:11] LABS: Absolute Lymphocyte Count 0.35 X10^3/uL (0.83-4.51); Absolute Neutrophil Count 1.3 X10^3/uL (2.0-7.7); Basophil# 0.01 X10^3/uL; Basophil% 0.5 % (0-1); Eosinophil# 0.01 X10^3/uL; Eosinophils% 0.5 % (0-5); Hematocrit 25.9 % (40-54); Hemoglobin 8.2 g/dL (13.0-16.5); Lymphocyte # 0.35 X10^3/ul (4.0); Lymphocyte % 16.3 % (19-41); Mean Corp Hgb Conc 31.7 g/dL (32-36); Mean Corpuscular Hgb 30.1 pg (27.0-32.0); Mean Corpuscular Volume 95.2 fL (80-94); Mean Platelet Vol. 10.1 fl (6.2-12.0); Monocyte% 23.3 % (0-10); NRBC Flagged by Analyzer 0 % (0-5); Neutrophil # 1.26 X10^3/uL (2.7-7.7); Neutrophil % 58.5 % (47-70); POSITIVE DIFFERENTIAL YES; Platelet Count 166 K/mm3 (150-450); RBC Distribution Width CV 14.2 % (11.6-14.6); RBC Distribution Width SD 49.3 fl (35.1-43.9); Red Blood Count 2.72 M/mm3 (4.6-6.2); White Blood Count 2.2 K/mm3 (4.4-11.0)
[2020-05-13 09:16] LABS: Differential Indicated SCAN CRITERIA MET
[2020-05-13 09:26] LABS: Differential Comment SCANNED
[2020-05-13 09:45] LABS: Anion Gap 8 (5-15); BUN 50 mg/dL (7-18); BUN/Creat Ratio 12.4 RATIO (10-20); Calcium,Total 8.1 mg/dL (8.5-10.1); Chloride 112 mmol/L (98-107); Creatinine, Serum 4.04 mg/dL (0.70-1.30); EST Glomerular Filtration Rate 16 mL/min (>60); Est Glom Filt Rate - Afr Amer 19 mL/min (>60); Estimated Creatinine Clearance 18.11 ml/min; Glucose 100 mg/dL (74-106); Potassium 4.4 mmol/L (3.5-5.1); Sodium Level 139 mmol/L (136-145)
[2020-05-13] MEDS: 0.9% Normal Saline 1,000 ML 150 ML IV (10:39)
--- NOTE | 2020-05-13 10:59 | PCM.PN.REN ---
Patient Problems: Active and Suspected Problems (Last Reviewed 05/10/20 @ 11:[address] Hakan Okeefe, DO) CAITLIN (acute kidney injury) (Acute) Intractable nausea and vomiting (Acute) Subjective: No nausea No vomiting. No SOB Constipated. - Physical Exam Vitals/I&O's: Vital Signs Temp Pulse Resp BP Pulse Ox 98.3 F 91 16 135/72 H 94 05/13/20 07:47 05/13/20 07:47 05/13/20 07:47 05/13/20 07:47 05/13/20 07:47 Oxygen Delivery Method Room Air Weight: 74.3 kg Body Mass Index (BMI) 24.9 Intake and Output for Last 24 Hours 05/11/20 05/12/20 05/13/20 23:59 23:59 23:59 Intake Total 4307.5 / 4557.5 4720 / 4720 1999 / 1999 Output Total 1000 / 1500 800 / 800 950 / 950 Balance 3307.5 / 3057.5 3920 / 3920 1050 / 1050 General: Alert, Oriented x3 HEENT: Atraumatic Oral: Moist Mucosa Neck: Supple, No JVD Lungs: Clear to auscultation, Normal air movement, No rhonchi, No wheeze Cardiovascular: Regular rate, Regular Rhythm, Normal S1, Normal S2 Abdomen: Bowel Sounds Present, Soft, Non Tender, Non-Distended Extremities: No clubbing, No cyanosis, Edema - +1 edema of LE Skin: No rashes Musculoskeletal: No Tenderness to Palpation of Joints or Extremities Lymphatic: No Cervical, Supraclavicular, or Inguinal Adenopathy Neurological: Cranial nerves II-XII grossly intact, Neuro grossly intact Psych/Mental Status: Appropriate Laboratory Results 05/10/20 08:15: Diff Path Review Reviewed 05/11/20 06:08: Diff Path Review Reviewed 05/12/20 06:10: Diff Path Review Reviewed 05/13/20 08:30: WBC 2.2 L, RBC 2.72 L, Hgb 8.2 L, Hct 25.9 L, MCV 95.2 H, MCH 30.1, MCHC 31.7 L, RDW Std Deviation 49.3 H, RDW Coeff of Barbara 14.2, Plt Count 166, MPV 10.1, Immature Gran % (Auto) 0.900, Neut % (Auto) 58.5, Lymph % (Auto) 16.3 L, [place] % (Auto) 23.3 H, Eos % (Auto) 0.5, Baso % (Auto) 0.5, Absolute Neuts (auto) 1.3 L, Absolute Lymphs (auto) 0.35 L, Nucleated RBC % 0, Differential Comment SCANNED, Diff Path Review July05/13/20 08:30: Sodium 139, Potassium 4.4, Chloride 112 H, Carbon Dioxide 19.0 L, Anion Gap 8, BUN 50 H, Creatinine 4.04 H, Estim Creat Clear Calc 18.11, Est GFR (MDRD) Af Amer 19 L, Est GFR (MDRD) Non-Af 16 L, BUN/Creatinine Ratio 12.4, Glucose 100, Calcium 8.1 L Current Medications Acetaminophen (Acetaminophen 325 Mg Tablet) 650 mg PO Q6H PRN PRN PRN Reason: Pain Score 1-10/Temp > 100.7 F Aspirin (Aspirin E.C. 81 Mg Tablet) [facility] Last Admin: 05/12/20 08:20 Dose: 81 mg Documented by: Calcium Carbonate (Calcium Carbonate 500 Mg Tablet) 500 mg PO Q4H PRN PRN PRN Reason: HEARTBURN Last Admin: 05/10/20 23:19 Dose: 500 mg Documented by: Enoxaparin Sodium (Enoxaparin 30 Mg/0.3 Ml Syringe) 30 mg SC DAILY [facility] Last Admin: 05/12/20 10:42 Dose: 30 mg Documented by: Fentanyl (Fentanyl 50 Mcg Patch) 50 mcg TD Q72H [facility] Last Admin: 05/11/20 17:55 Dose: 50 mcg Documented by: Sodium Chloride () 1,000 mls @ 150 mls/hr IV .Q6H40M [facility] Last Admin: 05/13/20 10:39 Dose: 150 mls/hr Documented by: Lidocaine/Diphenhydr/Alum/Mg/Simeth (Bmx Liquid 180 Ml) 15 ml PO ACHS PRN PRN Reason: ORAL PAIN Last Admin: 05/11/20 17:56 Dose: 15 ml Documented by: Morphine Sulfate (Morphine 2 Mg/Ml Syringe) 2 mg IV Q3H PRN PRN PRN Reason: Pain Score 6-10 Last Admin: 05/13/20 09:19 Dose: 2 mg Documented by: Ondansetron HCl (Ondansetron 4 Mg/2 Ml Vial) 4 mg IV Q8H PRN PRN PRN Reason: NAUSEA/VOMITING Last Admin: 05/12/20 16:43 Dose: 4 mg Documented by: Oxycodone HCl (Oxycodone 5 Mg Tablet) 5 mg PO Q6H PRN PRN Reason: Pain Score 4-5 Last Admin: 05/12/20 18:38 Dose: 5 mg Documented by: Pantoprazole Sodium (Pantoprazole Sodium 40 Mg Tablet) 40 mg PO DAILY [facility] Last Admin: 05/13/20 09:05 Dose: 40 mg Documented by: Polyethylene Glycol (Polyethylene Glycol 3350 17 Gm Packet) 17 gm PO DAILY PRN PRN PRN Reason: CONSTIPATION Prednisone (Prednisone 10 Mg Tablet) [facility] Last Admin: 05/12/20 08:20 Dose: 10 mg Documented by: Prochlorperazine Maleate (Prochlorperazine 5 Mg Tablet) 10 mg PO Q6H PRN PRN PRN Reason: NAUSEA Last Admin: 05/12/20 01:43 Dose: 10 mg Documented by: Senna/Docusate Sodium (Senna/Docusate Sodium 1 Tablet) 2 tablet PO BID PRN PRN PRN Reason: CONSTIPATION Sodium Chloride (0.9% Saline Lock 10 Ml Syringe) 10 - 40 ml IV UD PRN PRN Reason: SALINE FLUSH Last Admin: 05/12/20 21:16 Dose: 10 ml Documented by: Medical Necessity - Tobacco Use Smoking Status: Never smoker Assessment/Plan All Active Problems (Last Reviewed 05/10/20 @ 11:[address] Hakan Okeefe, DO) Encounter for adjustment and management of vascular access device (Acute) Encounter for education (Acute) Chemotherapy management, encounter for (Acute) Chemotherapy follow-up examination (Acute) Mucositis (ulcerative) due to antineoplastic therapy (Acute) Erectile dysfunction after radical prostatectomy (Acute) Abscess (Acute) Left lower quadrant pain (Resolved) Constipation (Acute) Stomatitis (Acute) Neutropenia, drug-induced (Acute) CAITLIN (acute kidney injury) (Acute) Intractable nausea and vomiting (Acute) 1- Acute kidney injury . Cr was 0.8 mg/dl in Mar 2020 UA is benign. FeNa 0.9% CAITLIN is likely from prerenal azotemia from nausea/vomiting and being on ACEI Cr remains elevated at 4.0 mg/dl despite IVF but UOP has increased. patient could also has CAITLIN from Jevtana Continue IVF for now but will reduce the rate to 75 cc/hour Will place hyman cath Continue holding home ACEI No need for [employer] Avoid IV contrast Check RFP in am 2- Left side hydronephrosis. urology service is on consult Will place hyman cath 3- metabolic acidosis. from NS and CAITLIN Will change IVF to RL 4- HTN: BP is well controlled continue holding home ACEI 4- Nausea / vomiting. KUB is normal Now resolved Renal team will continue to follow Please call if any question or concern at [phone] d/w Dr. Julissa Morgan MD
--- NOTE | 2020-05-13 11:55 | PN_ITS ---
Patient Problems: Active and Suspected Problems (Last Reviewed 05/10/20 @ 11:[address] Hakan Okeefe, DO) CAITLIN (acute kidney injury) (Acute) Intractable nausea and vomiting (Acute) Subjective: Patient seen and examined. He had no complaints this morning. Review of symptoms otherwise negative. Renal ultrasound done showed moderate degree of left-sided hydronephrosis so nephrology consulted. He has remained hemodynamically stable. Vitals/I&O's: Vital Signs Temp Pulse Resp BP Pulse Ox 98.3 F 91 16 135/72 H 94 05/13/20 07:47 05/13/20 07:47 05/13/20 07:47 05/13/20 07:47 05/13/20 07:47 Oxygen Delivery Method Room Air Weight: 163 lb 12.855 oz Body Mass Index (BMI) 24.9 Intake and Output for Last 24 Hours 05/11/20 05/12/20 05/13/20 23:59 23:59 23:59 Intake Total 4307.5 / 4557.5 4720 / 4720 2000 / 1999 Output Total 1000 / 1500 800 / 800 950 / 950 Balance 3307.5 / 3057.5 3920 / 3920 1050 / 1050 General: Alert, Oriented x3, Cooperative HEENT: Atraumatic, PERRLA, EOMI, Normocephalic Neck: Supple, No JVD, Negative Carotid Bruits Lungs: Clear to auscultation, Normal air movement Cardiovascular: Regular rate, No murmurs Abdomen: Bowel Sounds Present, Soft, Non Tender Extremities: No edema, Capillary Refill Less than 3 Seconds Skin: No rashes, No breakdown Musculoskeletal: No Tenderness to Palpation of Joints or Extremities Neurological: Cranial nerves II-XII grossly intact, Neuro grossly intact, Motor Exam 5/5 strength throughout Psych/Mental Status: Normal Affect, Appropriate, Alert and oriented to time, place, person, mood and affect Laboratory Results 05/10/20 08:15: Diff Path Review Reviewed 05/11/20 06:08: Diff Path Review Reviewed 05/12/20 06:10: Diff Path Review Reviewed 05/13/20 08:30: WBC 2.2 L, RBC 2.72 L, Hgb 8.2 L, Hct 25.9 L, MCV 95.2 H, MCH 30.1, MCHC 31.7 L, RDW Std Deviation 49.3 H, RDW Coeff of Barbara 14.2, Plt Count 166, MPV 10.1, Immature Gran % (Auto) 0.900, Neut % (Auto) 58.5, Lymph % (Auto) 16.3 L, [place] % (Auto) 23.3 H, Eos % (Auto) 0.5, Baso % (Auto) 0.5, Absolute Neuts (auto) 1.3 L, Absolute Lymphs (auto) 0.35 L, Nucleated RBC % 0, Differential Comment SCANNED, Diff Path Review July foll 05/13/20 08:30: Sodium 139, Potassium 4.4, Chloride 112 H, Carbon Dioxide 19.0 L , Anion Gap 8, BUN 50 H, Creatinine 4.04 H, Estim Creat Clear Calc 18.11, Est GFR (MDRD) Af Amer 19 L, Est GFR (MDRD) Non-Af 16 L, BUN/Creatinine Ratio 12.4, Glucose 100, Calcium 8.1 L Diagnostic Data Acute Abdomen Series 05/10/20 13:05 IMPRESSION: No acute findings in the chest, abdomen or pelvis. Electronically Signed: Adam Pacheco MD ([place]) at 14:47 EST , Service support , Renal Ultrasound 05/11/20 07:48 IMPRESSION: Right renal cysts. Moderate degree of left hydronephrosis. Electronically Signed: Siva Dale MD at 9:05 EST , Service support , Current Medications Acetaminophen (Acetaminophen 325 Mg Tablet) 650 mg PO Q6H PRN PRN PRN Reason: Pain Score 1-10/Temp > 100.7 F Aspirin (Aspirin E.C. 81 Mg Tablet) 81 mg PO DAILYCM [facility]ANSA Last Admin: 05/12/20 08:20 Dose: 81 mg Documented by: Calcium Carbonate (Calcium Carbonate 500 Mg Tablet) 500 mg PO Q4H PRN PRN PRN Reason: HEARTBURN Last Admin: 05/10/20 23:19 Dose: 500 mg Documented by: Enoxaparin Sodium (Enoxaparin 30 Mg/0.3 Ml Syringe) 30 mg SC DAILY [facility] Last Admin: 05/12/20 10:42 Dose: 30 mg Documented by: Fentanyl (Fentanyl 50 Mcg Patch) 50 mcg TD Q72H [facility] Last Admin: 05/11/20 17:55 Dose: 50 mcg Documented by: Lactated Ringer's () 1,000 mls @ 75 mls/hr IV .[id number] [facility] Lidocaine/Diphenhydr/Alum/Mg/Simeth (Bmx Liquid 180 Ml) 15 ml PO ACHS PRN PRN Reason: ORAL PAIN Last Admin: 05/11/20 17:56 Dose: 15 ml Documented by: Morphine Sulfate (Morphine 2 Mg/Ml Syringe) 2 mg IV Q3H PRN PRN PRN Reason: Pain Score 6-10 Last Admin: 05/13/20 09:19 Dose: 2 mg Documented by: Ondansetron HCl (Ondansetron 4 Mg/2 Ml Vial) 4 mg IV Q8H PRN PRN PRN Reason: NAUSEA/VOMITING Last Admin: 05/12/20 16:43 Dose: 4 mg Documented by: Oxycodone HCl (Oxycodone 5 Mg Tablet) 5 mg PO Q6H PRN PRN Reason: Pain Score 4-5 Last Admin: 05/12/20 18:38 Dose: 5 mg Documented by: Pantoprazole Sodium (Pantoprazole Sodium 40 Mg Tablet) 40 mg PO DAILY [facility] Last Admin: 05/13/20 09:05 Dose: 40 mg Documented by: Polyethylene Glycol (Polyethylene Glycol 3350 17 Gm Packet) 17 gm PO DAILY PRN PRN PRN Reason: CONSTIPATION Prednisone (Pred[facility] 10 Mg Tablet) [facility] Last Admin: 05/12/20 08:20 Dose: 10 mg Documented by: Prochlorperazine Maleate (Prochlorperazine 5 Mg Tablet) 10 mg PO Q6H PRN PRN PRN Reason: NAUSEA Last Admin: 05/12/20 01:43 Dose: 10 mg Documented by: Senna/Docusate Sodium (Senna/Docusate Sodium 1 Tablet) 2 tablet PO BID PRN PRN PRN Reason: CONSTIPATION Sodium Chloride (0.9% Saline Lock 10 Ml Syringe) 10 - 40 ml IV UD PRN PRN Reason: SALINE FLUSH Last Admin: 02/22/21 21:16 Dose: 10 ml Documented by: Medical Necessity - Tobacco Use Smoking Status: Never smoker Assessment/Plan All Active Problems (Last Reviewed 05/10/20 @ 11:[address] Hakan Okeefe, DO) Encounter for adjustment and management of vascular access device (Acute) Encounter for education (Acute) Chemotherapy management, encounter for (Acute) Chemotherapy follow-up examination (Acute) Mucositis (ulcerative) due to antineoplastic therapy (Acute) Erectile dysfunction after radical prostatectomy (Acute) Abscess (Acute) Left lower quadrant pain (Resolved) Constipation (Acute) Stomatitis (Acute) Neutropenia, drug-induced (Acute) CAITLIN (acute kidney injury) (Acute) Intractable nausea and vomiting (Acute) #CAITLIN * CR is up to 4.04 today * renal USG showed moderate left sided hydronephrosis * FeNA was also low, suggeting a pre-renal component * continue hydration with IVF * consult nephrology * urology also consulted o/a of hydronephrosis; awaitint rec;s * lisinopril on hold * #Intractable nausea and vomiting: resolved #Metastatic prostate cancer * receiving chemotherapy. Has completed radiation. * on prednisone * mets to the lymph nodes * follow up with oncology and radiation oncology on outpatient basis * #HTN: Lisinopril on hold on account of CAITLIN. #Hyperlipidemia: On ezetimibe osteoarthritis: stable DVT prophylaxis: lovenox Inpatient E&M: [id number] [facility] L[facility]
[2020-05-13] MEDS: Lactated Ringers 1,000 ML 75 ML IV (12:14)
[2020-05-13 13:05] VITALS: BP 129/74; PULSE 90; RESP 18; TEMP 36.9; O2SAT 96
[2020-05-13 15:21] VITALS: BP 150/81; PULSE 67; RESP 16; TEMP 36.9; O2SAT 95
[2020-05-13 16:08] LABS: Folate, RBC (Hct) Test 25.8 % (37.5-51.0)
--- NOTE | 2020-05-13 16:31 | PCM.CONS.U ---
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 He was seen oncology for chemotherapy and outcomes into the hospital with nausea vomiting and he has new left hydronephrosis probably from obstructive lymphadenopathy and cancer.] Past Medical History Past Medical History (Chronic Problems): Chronic Problems (Last Reviewed 05/10/20 @ 11:[address] 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 Hakan Okeefe DO) Abnormal biopsy result R89.7 [facility] PROSTATE 04/04/13 Diverticulitis K57.92 Elevated PSA R97.20 Erectile dysfunction after radical prostatectomy N52.31 GERD without esophagitis K21.9 History of bone scan Z92.89 [facility] 05/27/16 Hypercholesterolemia E78.00 Malignant neoplasm of prostate C61 Osteoarthritis M19.90 Osteoporosis M81.0 Port-A-Cath in place Z95.828 Stress incontinence, male N39.3 Unspecified retinal disorder H35.9 Unspecified visual disturbance H53.9 Hypertension I10 Allergies No Known Allergies Allergy (Verified 05/10/20 08:09) Home Medications: Ambulatory Orders Medication Instructions Recorded Lisinopril [Zestril] 20 mg PO QHS 03/23/13 Dexlansoprazole [Dexilant] 60 mg PO DAILY 01/16/19 Ezetimibe [Zetia] 10 mg PO QHS 01/16/19 Leuprolide acetate [Eligard] 22.5 mg SQ X1 01/16/19 Psyllium Husk (with Sugar) 3.4 gm PO DAILY 01/22/19 [Metamucil Packet] Ondansetron [Zofran Odt] 4 mg PO Q8H PRN PRN 10 Days #30 tab 11/11/19 Prochlorperazine Maleate 10 mg PO Q6H PRN PRN 10 Days #30 01/29/19 tab Polyethylene Glycol 3350 [Miralax] 17 gm PO DAILY 10/30/19 Fentanyl 50 mcg TOPICAL UD 01/15/20 Oxycodone 5 mg PO BID 01/15/20 Magic Mouth Wash 15 ml PO Q6H PRN PRN #300 ml 04/23/20 Aspirin [Lo-Dose Aspirin EC] 81 mg PO DAILY 04/24/20 Prednisone 10 mg PO DAILY 60 Days #60 tab 04/24/20 Naloxegol Oxalate [Movantik] 12.5 mg PO DAILY 05/10/20 Surgical History: Surgical History (Last Reviewed 05/10/20 @ 11:[address] Hakan Okeefe DO) History of fusion of cervical spine Z98.1 History of radical prostatectomy Z90.79 2014 History of removal of Port-a-Cath Onset Date: ~03/2019 Z98.890 History of tonsillectomy Z90.89 Surgical History: no surgical history Smoking Status: Never smoker - *Family History Maternal Family History: Family History (Last Reviewed 05/10/20 @ 11:[address] Hakan Okeefe DO) Brother CAD (coronary artery disease) Coronary artery disease involving coronary bypass graft Father CAD (coronary artery disease) Coronary artery disease involving coronary bypass graft Review of Systems Constitutional: Denies: Chills, Fever, Weight Change HEENT: Denies: Head Aches, Sinus Congestion, Sinus Drainage Cardiovascular: Denies: Chest Pain, Palpitations Respiratory: Denies: Cough, Shortness of breath at rest, Sputum production Gastrointestinal: Denies: Abdominal Pain, Nausea, Vomiting Genitourinary: Denies: Dysuria Musculoskeletal: Denies: Joint Pain, Joint Tenderness Skin: Denies: Rash, Wounds Neurological: Denies: Numbness, Tingling, Focal weakness Psychiatric: Denies: Anxiety, Depression, Homicidal Ideations, Suicidal Ideations Hematologic/ Lymphatic: Denies: Easy Bruising, Easy Bleeding Physical Exam - Physical Exam Vital Signs Temp 98.4 F 05/13/20 15: Pulse 67 05/13/20 15: Resp 16 05/13/20 15:21 BP 150/81 H 05/13/20 15:21 Pulse Ox 95 02/23/21 15:21 Intake & Output 05/11/20 05/12/20 05/13/20 23:59 23:59 23:59 Intake Total 4307.5 / 4557.5 4720 / 4720 2242.5 / 2242.5 Output Total 1000 / 1500 800 / 800 1775 / 1775 Balance 3307.5 / 3057.5 3920 / 3920 467.5 / 467.5 Weight: 74.3 kg Intake: Oral 1350 / 1600 850 / 850 1000 / 1000 Intake, IV Amount 2957.5 / 2957.5 3870 / 3870 1242.5 / 1242.5 0.9% Normal Saline 1,000 ML @ 2957.5 / 2957.5 3870 / 3870 1242.5 / 1242.5 150 mls/hr IV .Q6H40M [facility] Rx#: [id number] Output: Urine 1000 / 1200 500 / 500 1775 / 1775 #2 Urine 300 / 300 Other: Number of Voids 1 General: Alert, Oriented x3 HEENT: Atraumatic Oral: Moist Mucosa Neck: Supple Lungs: Clear to auscultation Cardiovascular: Regular rate Abdomen: Soft Laboratory Tests Past 24 Hrs 05/13/20 05/13/20 08:30 08:30 WBC 2.2 L RBC 2.72 L Hgb 8.2 L Hct 25.9 L MCV 95.2 H MCH 30.1 MCHC 31.7 L RDW Std Deviation 49.3 H RDW Coeff of Barbara 14.2 Plt Count 166 MPV 10.1 Immature Gran % (Auto) 0.900 Neut % (Auto) 58.5 Lymph % (Auto) 16.3 L [place] % (Auto) 23.3 H Eos % (Auto) 0.5 Baso % (Auto) 0.5 Absolute Neuts (auto) 1.3 L Absolute Lymphs (auto) 0.35 L Nucleated RBC % 0 Differential Comment SCANNED Diff Path Review July Sodium 139 Potassium 4.4 Chloride 112 H Carbon Dioxide 19.0 L Anion Gap 8 BUN 50 H Creatinine 4.04 H Estim Creat Clear Calc 18.11 Est GFR (MDRD) Af Amer 19 L Est GFR (MDRD) Non-Af 16 L BUN/Creatinine Ratio 12.4 Glucose 100 Calcium 8.1 L Assessment/Plan All Active Problems (Last Reviewed 05/10/20 @ 11:[address] Hakan Okeefe, DO) Encounter for adjustment and management of vascular access device (Acute) Encounter for education (Acute) Chemotherapy management, encounter for (Acute) Chemotherapy follow-up examination (Acute) Mucositis (ulcerative) due to antineoplastic therapy (Acute) Erectile dysfunction after radical prostatectomy (Acute) Abscess (Acute) Left lower quadrant pain (Resolved) Constipation (Acute) Stomatitis (Acute) Neutropenia, drug-induced (Acute) CAITLIN (acute kidney injury) (Acute) Intractable nausea and vomiting (Acute) 64-year-old male with prior prostatectomy, nursing staff attempted to place the catheter, they were not successful I would not try again this might disrupt the anastomosis. He has been urinating okay. I plan to take him to surgery for a cystoscopy evaluation of the urethra and the sphincter he may have a scar tissue but will check this out and also will plan to do a left retrograde pyelogram and left stent placement for the obstructed kidney I suppose is from probably adenopathy. After the stent is placed hopefully this will help alleviate the obstruction of the left kidney.
[2020-05-13] MEDS: Aspirin E.C. 81 MG Tablet PO (16:55)
[2020-05-13] MEDS: Enoxaparin 30 MG/0.3 ML Syringe SC (16:55)
[2020-05-13] MEDS: predniSONE 10 MG Tablet PO (16:55)
[2020-05-13 20:14] LABS: Folates, RBC Test 1554 ng/mL (>498)
[2020-05-13 22:02] VITALS: BP 143/79; PULSE 66; RESP 18; TEMP 36.8; O2SAT 97
[2020-05-14] MEDS: Lactated Ringers 1,000 ML 75 ML IV (01:50)
[2020-05-14] MEDS: Morphine 2 MG/ML Syringe IV ×6 (01:57→21:43)
[2020-05-14 02:01] VITALS: BP 151/65; PULSE 62; RESP 17; TEMP 36.9; O2SAT 96
[2020-05-14 07:17] LABS: Absolute Lymphocyte Count 0.29 X10^3/uL (0.83-4.51); Absolute Neutrophil Count 1.5 X10^3/uL (2.0-7.7); Basophil# 0.01 X10^3/uL; Basophil% 0.4 % (0-1); Eosinophil# 0.01 X10^3/uL; Eosinophils% 0.4 % (0-5); Hematocrit 27.2 % (40-54); Hemoglobin 8.6 g/dL (13.0-16.5); Lymphocyte # 0.29 X10^3/ul (4.0); Lymphocyte % 12.8 % (19-41); Mean Corp Hgb Conc 31.6 g/dL (32-36); Mean Corpuscular Hgb 30.3 pg (27.0-32.0); Mean Corpuscular Volume 95.8 fL (80-94); Mean Platelet Vol. 10.1 fl (6.2-12.0); Monocyte# 0.41 X10^3/uL; Monocyte% 18.1 % (0-10); NRBC Flagged by Analyzer 0 % (0-5); Neutrophil # 1.47 X10^3/uL (2.7-7.7); Neutrophil % 65.2 % (47-70); POSITIVE DIFFERENTIAL YES; Platelet Count 160 K/mm3 (150-450); RBC Distribution Width CV 14.2 % (11.6-14.6); RBC Distribution Width SD 49.4 fl (35.1-43.9); Red Blood Count 2.84 M/mm3 (4.6-6.2); White Blood Count 2.3 K/mm3 (4.4-11.0)
[2020-05-14 07:27] LABS: Differential Indicated SCAN CRITERIA MET
[2020-05-14 08:01] VITALS: BP 159/74; PULSE 62; RESP 18; TEMP 36.7; O2SAT 97
[2020-05-14 08:01] LABS: Anion Gap 9 (5-15); BUN 54 mg/dL (7-18); BUN/Creat Ratio 12.2 RATIO (10-20); Calcium,Total 8.4 mg/dL (8.5-10.1); Chloride 113 mmol/L (98-107); Creatinine, Serum 4.43 mg/dL (0.70-1.30); EST Glomerular Filtration Rate 14 mL/min (>60); Est Glom Filt Rate - Afr Amer 17 mL/min (>60); Estimated Creatinine Clearance 16.51 ml/min; Glucose 81 mg/dL (74-106); Potassium 5.2 mmol/L (3.5-5.1); Sodium Level 139 mmol/L (136-145)
[2020-05-14 08:05] VITALS: PULSE 72
[2020-05-14] MEDS: Aspirin E.C. 81 MG Tablet PO (09:17)
[2020-05-14] MEDS: predniSONE 10 MG Tablet PO (09:17)
[2020-05-14] MEDS: Enoxaparin 30 MG/0.3 ML Syringe SC (09:18)
[2020-05-14] MEDS: Pantoprazole Sodium 40 MG Tablet PO (09:18)
[2020-05-14] MEDS: Polyethylene Glycol 3350 17 GM PACKET PO (09:27)
--- NOTE | 2020-05-14 11:14 | PN.RENAL_ITS ---
Patient Problems: Active and Suspected Problems (Last Reviewed 05/10/20 @ 11:[address] Hakan Okeefe, DO) CAITLIN (acute kidney injury) (Acute) Intractable nausea and vomiting (Acute) Subjective: No nausea No vomiting. No SOB. hyman cath placement attempt yesterday was unsuccessful - Physical Exam Vitals/I&O's: Vital Signs Temp Pulse Resp BP Pulse Ox 98.0 F 72 18 159/74 H 97 05/14/20 08:01 05/14/20 08:05 05/14/20 08:01 05/14/20 08:01 05/14/20 08:01 Oxygen Delivery Method Room Air Weight: 74.3 kg Body Mass Index (BMI) 24.9 Intake and Output for Last 24 Hours 05/12/20 05/13/20 05/14/20 23:59 23:59 23:59 Intake Total 4720 / 4720 2442.5 / 2842.5 1800 / 1800 Output Total 800 / 800 2200 / 2550 850 / 850 Balance 3920 / 3920 242.5 / 292.5 950 / 950 General: Alert, Oriented x3 HEENT: Atraumatic Oral: Moist Mucosa Neck: Supple, No JVD Lungs: Clear to auscultation, Normal air movement, No rhonchi, No wheeze Cardiovascular: Regular rate, Regular Rhythm, Normal S1, Normal S2 Abdomen: Bowel Sounds Present, Soft, Non Tender, Non-Distended Extremities: No clubbing, No cyanosis, Edema - TRACE Skin: No rashes Musculoskeletal: No Tenderness to Palpation of Joints or Extremities Lymphatic: No Cervical, Supraclavicular, or Inguinal Adenopathy Neurological: Cranial nerves II-XII grossly intact, Neuro grossly intact Psych/Mental Status: Appropriate Laboratory Results 05/12/20 06:10: RBC Folate Hemolysate 401.0, RBC Folate 1554, Hematocrit 25.8 L 05/14/20 06:40: WBC 2.3 L, RBC 2.84 L, Hgb 8.6 L, Hct 27.2 L, MCV 95.8 H, MCH 30.3, MCHC 31.6 L, RDW Std Deviation 49.4 H, RDW Coeff of Barbara 14.2, Plt Count 160, MPV 10.1, Immature Gran % (Auto) 3.100 H, Neut % (Auto) 65.2, Lymph % (Auto) 12.8 L, [place] % (Auto) 18.1 H, Eos % (Auto) 0.4, Baso % (Auto) 0.4, Absolute Neuts (auto) 1.5 L, Absolute Lymphs (auto) 0.29 L, Nucleated RBC % 0, Differential Comment COMMENT, Diff Path Review July foll 05/14/20 06:40: Sodium 139, Potassium 5.2 H, Chloride 113 H, Carbon Dioxide 17.0 L, Anion Gap 9, BUN 54 H, Creatinine 4.43 H, Estim Creat Clear Calc 16.51, Est GFR (MDRD) Af Amer 17 L, Est GFR (MDRD) Non-Af 14 L, BUN/Creatinine Ratio 12.2, Glucose 81, Calcium 8.4 L Current Medications Acetaminophen (Acetaminophen 325 Mg Tablet) 650 mg PO Q6H PRN PRN PRN Reason: Pain Score 1-10/Temp > 100.7 F Aspirin (Aspirin E.C. 81 Mg Tablet) [facility] Last Admin: 05/14/20 09:17 Dose: 81 mg Documented by: Calcium Carbonate (Calcium Carbonate 500 Mg Tablet) 500 mg PO Q4H PRN PRN PRN Reason: HEARTBURN Last Admin: 05/10/20 23:19 Dose: 500 mg Documented by: Enoxaparin Sodium (Enoxaparin 30 Mg/0.3 Ml Syringe) 30 mg SC DAILY [facility] Last Admin: 05/14/20 09:18 Dose: 30 mg Documented by: Fentanyl (Fentanyl 50 Mcg Patch) 50 mcg TD Q72H [facility] Last Admin: 05/11/20 17:55 Dose: 50 mcg Documented by: Lactated Ringer's () 1,000 mls @ 75 mls/hr IV .[id number] [facility] Last Admin: 05/14/20 01:50 Dose: 75 mls/hr Documented by: Lidocaine/Diphenhydr/Alum/Mg/Simeth (Bmx Liquid 180 Ml) 15 ml PO ACHS PRN PRN Reason: ORAL PAIN Last Admin: 05/11/20 17:56 Dose: 15 ml Documented by: Morphine Sulfate (Morphine 2 Mg/Ml Syringe) 2 mg IV Q3H PRN PRN PRN Reason: Pain Score 6-10 Last Admin: 05/14/20 09:27 Dose: 2 mg Documented by: Ondansetron HCl (Ondansetron 4 Mg/2 Ml Vial) 4 mg IV Q8H PRN PRN PRN Reason: NAUSEA/VOMITING Last Admin: 05/12/20 16:43 Dose: 4 mg Documented by: Oxycodone HCl (Oxycodone 5 Mg Tablet) 5 mg PO Q6H PRN PRN Reason: Pain Score 4-5 Last Admin: 05/12/20 18:38 Dose: 5 mg Documented by: Pantoprazole Sodium (Pantoprazole Sodium 40 Mg Tablet) 40 mg PO DAILY [facility] Last Admin: 05/14/20 09:18 Dose: 40 mg Documented by: Polyethylene Glycol (Polyethylene Glycol 3350 17 Gm Packet) 17 gm PO DAILY PRN PRN PRN Reason: CONSTIPATION Last Admin: 05/14/20 09:27 Dose: 17 gm Documented by: Prednisone (Prednisone 10 Mg Tablet) 10 mg PO DAILYCM [facility] Last Admin: 05/14/20 09:17 Dose: 10 mg Documented by: Prochlorperazine Maleate (Prochlorperazine 5 Mg Tablet) 10 mg PO Q6H PRN PRN PRN Reason: NAUSEA Last Admin: 05/12/20 01:43 Dose: 10 mg Documented by: Senna/Docusate Sodium (Senna/Docusate Sodium 1 Tablet) 2 tablet PO BID PRN PRN PRN Reason: CONSTIPATION Sodium Chloride (0.9% Saline Lock 10 Ml Syringe) 10 - 40 ml IV UD PRN PRN Reason: SALINE FLUSH Last Admin: 05/12/20 21:16 Dose: 10 ml Documented by: Medical Necessity - Tobacco Use Smoking Status: Never smoker Assessment/Plan All Active Problems (Last Reviewed 05/10/20 @ 11:[address] Hakan Okeefe, DO) Encounter for adjustment and management of vascular access device (Acute) Encounter for education (Acute) Chemotherapy management, encounter for (Acute) Chemotherapy follow-up examination (Acute) Mucositis (ulcerative) due to antineoplastic therapy (Acute) Erectile dysfunction after radical prostatectomy (Acute) Abscess (Acute) Left lower quadrant pain (Resolved) Constipation (Acute) Stomatitis (Acute) Neutropenia, drug-induced (Acute) CAITLIN (acute kidney injury) (Acute) Intractable nausea and vomiting (Acute) 1- Acute kidney injury . Cr was 0.8 mg/dl in Mar 2020 CAITLIN is likely post renal obstruction . hyman cath placement attempt on 05/13/20 failed. renal US showed right side hydronephrosis patient could also has CAITLIN from [place]ev[place] Cr increased today to 4.4 mg/dl. Non oliguric Continue IVF at 75 cc/hour Urologist is planning for cystoscopy with L pyelogram and stent placement tomorrow Continue holding home ACEI No need for [employer] Avoid IV contrast Check RFP in am 2- Left side hydronephrosis. urology service is on consult Urologist is planning for cystoscopy with L pyelogram and stent placement tomorrow 3- metabolic acidosis. from NS and CAITLIN Will change IVF to isotonic HC03 drip 4- HTN: BP is well controlled continue holding home ACEI 4- Nausea / vomiting. KUB is normal Now resolved Renal team will continue to follow Please call if any question or concern at [phone] d/w Dr. Julissa Morgan MD
--- NOTE | 2020-05-14 11:16 | PN_ITS ---
Patient Problems: Active and Suspected Problems (Last Reviewed 05/10/20 @ 11:[address] Hakan Okeefe, DO) CAITLIN (acute kidney injury) (Acute) Intractable nausea and vomiting (Acute) Subjective: Patient seen and examined. He has no complaints today. Review of systems otherwise negative. He is due for urreter stent placement by urology tomorrow. Review of systems otherwise negative. Vitals/I&O's: Vital Signs Temp Pulse Resp BP Pulse Ox 98.0 F 72 18 159/74 H 97 05/14/20 08:01 05/14/20 08:05 05/14/20 08:01 05/14/20 08:01 05/14/20 08:01 Oxygen Delivery Method Room Air Weight: 163 lb 12.855 oz Body Mass Index (BMI) 24.9 Intake and Output for Last 24 Hours 05/12/20 05/13/20 05/14/20 23:59 23:59 23:59 Intake Total 4720 / 4720 2442.5 / 2842.5 1800 / 1800 Output Total 800 / 800 2200 / 2550 850 / 850 Balance 3920 / 3920 242.5 / 292.5 950 / 950 General: Alert, Oriented x3, Cooperative HEENT: Atraumatic, PERRLA, EOMI, Normocephalic Neck: Supple, No JVD, Negative Carotid Bruits Lungs: Clear to auscultation, Normal air movement Cardiovascular: Regular rate, No murmurs Abdomen: Bowel Sounds Present, Soft, Non Tender Extremities: No edema, Capillary Refill Less than 3 Seconds Skin: No rashes, No breakdown Musculoskeletal: No Tenderness to Palpation of Joints or Extremities Neurological: Cranial nerves II-XII grossly intact, Neuro grossly intact, Motor Exam 5/5 strength throughout Psych/Mental Status: Normal Affect, Appropriate, Alert and oriented to time, place, person, mood and affect Laboratory Results 05/12/20 06:10: RBC Folate Hemolysate 401.0, RBC Folate 1554, Hematocrit 25.8 L 05/14/20 06:40: WBC 2.3 L, RBC 2.84 L, Hgb 8.6 L, Hct 27.2 L, MCV 95.8 H, MCH 30.3, MCHC 31.6 L, RDW Std Deviation 49.4 H, RDW Coeff of Barbara 14.2, Plt Count 160, MPV 10.1, Immature Gran % (Auto) 3.100 H, Neut % (Auto) 65.2, Lymph % (Auto) 12.8 L, [place] % (Auto) 18.1 H, Eos % (Auto) 0.4, Baso % (Auto) 0.4, Absolute Neuts (auto) 1.5 L, Absolute Lymphs (auto) 0.29 L, Nucleated RBC % 0, Differential Comment COMMENT, Diff Path Review July [facility] 05/14/20 06:40: Sodium 139, Potassium 5.2 H, Chloride 113 H, Carbon Dioxide 17.0 L, Anion Gap 9, BUN 54 H, Creatinine 4.43 H, Estim Creat Clear Calc 16.51, Est GFR (MDRD) Af Amer 17 L, Est GFR (MDRD) Non-Af 14 L, BUN/Creatinine Ratio 12.2, Glucose 81, Calcium 8.4 L Current Medications Acetaminophen (Acetaminophen 325 Mg Tablet) 650 mg PO Q6H PRN PRN PRN Reason: Pain Score 1-10/Temp > 100.7 F Aspirin (Aspirin E.C. 81 Mg Tablet) [facility] Last Admin: 05/14/20 09:17 Dose: 81 mg Documented by: Calcium Carbonate (Calcium Carbonate 500 Mg Tablet) 500 mg PO Q4H PRN PRN PRN Reason: HEARTBURN Last Admin: 05/10/20 23:19 Dose: 500 mg Documented by: Enoxaparin Sodium (Enoxaparin 30 Mg/0.3 Ml Syringe) 30 mg SC DAILY [facility] Last Admin: 05/14/20 09:18 Dose: 30 mg Documented by: Fentanyl (Fentanyl 50 Mcg Patch) 50 mcg TD Q72H [facility] Last Admin: 05/11/20 17:55 Dose: 50 mcg Documented by: Lactated Ringer's () 1,000 mls @ 75 mls/hr IV .[id number] [facility] Last Admin: 05/14/20 01:50 Dose: 75 mls/hr Documented by: Lidocaine/Diphenhydr/Alum/Mg/Simeth (Bmx Liquid 180 Ml) 15 ml PO ACHS PRN PRN Reason: ORAL PAIN Last Admin: 05/11/20 17:56 Dose: 15 ml Documented by: Morphine Sulfate (Morphine 2 Mg/Ml Syringe) 2 mg IV Q3H PRN PRN PRN Reason: Pain Score 6-10 Last Admin: 05/14/20 09:27 Dose: 2 mg Documented by: Ondansetron HCl (Ondansetron 4 Mg/2 Ml Vial) 4 mg IV Q8H PRN PRN PRN Reason: NAUSEA/VOMITING Last Admin: 05/12/20 16:43 Dose: 4 mg Documented by: Oxycodone HCl (Oxycodone 5 Mg Tablet) 5 mg PO Q6H PRN PRN Reason: Pain Score 4-5 Last Admin: 05/12/20 18:38 Dose: 5 mg Documented by: Pantoprazole Sodium (Pantoprazole Sodium 40 Mg Tablet) 40 mg PO DAILY [facility] Last Admin: 05/14/20 09:18 Dose: 40 mg Documented by: Polyethylene Glycol (Polyethylene Glycol 3350 17 Gm Packet) 17 gm PO DAILY PRN PRN PRN Reason: CONSTIPATION Last Admin: 05/14/20 09:27 Dose: 17 gm Documented by: Prednisone (Prednisone 10 Mg Tablet) [facility] Last Admin: 05/14/20 09:17 Dose: 10 mg Documented by: Prochlorperazine Maleate (Prochlorperazine 5 Mg Tablet) 10 mg PO Q6H PRN PRN PRN Reason: NAUSEA Last Admin: 05/12/20 01:43 Dose: 10 mg Documented by: Senna/Docusate Sodium (Senna/Docusate Sodium 1 Tablet) 2 tablet PO BID PRN PRN PRN Reason: CONSTIPATION Sodium Chloride (0.9% Saline Lock 10 Ml Syringe) 10 - 40 ml IV UD PRN PRN Reason: SALINE FLUSH Last Admin: 05/12/20 21:16 Dose: 10 ml Documented by: STROKE Vital Signs/Narrative: Vital Signs Temp Pulse Resp BP Pulse Ox 05/14/20 08:05 72 05/14/20 08:01 98.0 F 62 18 159/74 H 97 Medical Necessity - Tobacco Use Smoking Status: Never smoker Assessment/Plan All Active Problems (Last Reviewed 05/10/20 @ 11:[address] Hakan Okeefe, DO) Encounter for adjustment and management of vascular access device (Acute) Encounter for education (Acute) Chemotherapy management, encounter for (Acute) Chemotherapy follow-up examination (Acute) Mucositis (ulcerative) due to antineoplastic therapy (Acute) Erectile dysfunction after radical prostatectomy (Acute) Abscess (Acute) Left lower quadrant pain (Resolved) Constipation (Acute) Stomatitis (Acute) Neutropenia, drug-induced (Acute) CAITLIN (acute kidney injury) (Acute) Intractable nausea and vomiting (Acute) #CAITLIN * CR is up to 4.43 today * renal USG showed moderate left sided hydronephrosis * FeNA was also low, suggeting a pre-renal component * continue hydration with IVF * nephrology and urology on board. For stent placement by urology tomorrow * lisinopril on hold * #Intractable nausea and vomiting: resolved #Metastatic prostate cancer * receiving chemotherapy. Has completed radiation. * on prednisone * mets to the lymph nodes * follow up with oncology and radiation oncology on outpatient basis * #HTN: Lisinopril on hold on account of CAITLIN. #Hyperlipidemia: On ezetimibe osteoarthritis: stable DVT prophylaxis: lovenox Inpatient E&M: 88649 Subs Hosp L2
[2020-05-14 12:54] LABS: Pathologist Review Reviewed
[2020-05-14 14:38] VITALS: BP 148/85; PULSE 62; RESP 18; TEMP 36.8; O2SAT 94
--- NOTE | 2020-05-14 14:53 | PCM.CONS.B ---
Problem List (1) Prostate cancer metastatic to intraabdominal lymph node Status: Chronic - Consult Date of Consult: 05/14/20 - Reason for Consult Plan to proceed with cystoscopy left record pyelogram left stent placement tomorrow in the operating room n.p.o. at midnight and will get consent.
[2020-05-14 15:00] VITALS: PULSE 70
[2020-05-14] MEDS: 0.9% Saline Lock 10 ML Syringe IV (21:44)
[2020-05-14 21:45] VITALS: BP 147/78; PULSE 68; RESP 18; TEMP 37.2; O2SAT 98
[2020-05-14] MEDS: Senna/Docusate Sodium 1 Tablet 2 TABLET PO (21:59)
[2020-05-15] VITALS (13 sets, daily range): BP systolic 130–153; BP diastolic 68–84; PULSE 58–76; RESP 12–16; TEMP 36.2–37.1; O2SAT 92–99; BMI 24.9
[2020-05-15] MEDS: Morphine 2 MG/ML Syringe IV ×6 (02:11→21:05)
--- NOTE | 2020-05-15 06:00 | EKG12_ITS ---
Test Reason : AM EKG Blood Pressure : / mmHG Vent. Rate : 067 BPM Atrial Rate : 067 BPM P-R Int : 130 ms QRS Dur : 088 ms QT Int : 376 ms P-R-T Axes : 061 041 014 degrees QTc Int : 397 ms Normal sinus rhythm Normal ECG Confirmed by ANDERSON COBOS, MARIO ([id number]), mapping editor DAMEON CASE ([id number]) on 05/22/2020 1:18:56 PM Referred By: DR REAL Confirmed By:MARIO BARRON MD
[2020-05-15 06:23] LABS: Absolute Lymphocyte Count 0.42 X10^3/uL (0.83-4.51); Absolute Neutrophil Count 1.5 X10^3/uL (2.0-7.7); Basophil# 0.01 X10^3/uL; Basophil% 0.4 % (0-1); Differential Indicated SCAN CRITERIA MET; Eosinophil# 0.02 X10^3/uL; Eosinophils% 0.7 % (0-5); Hemoglobin 8.8 g/dL (13.0-16.5); Lymphocyte # 0.42 X10^3/ul (4.0); Lymphocyte % 15.2 % (19-41); Mean Corp Hgb Conc 32.6 g/dL (32-36); Mean Corpuscular Hgb 30.3 pg (27.0-32.0); Mean Corpuscular Volume 93.1 fL (80-94); Mean Platelet Vol. 9.3 fl (6.2-12.0); Monocyte# 0.69 X10^3/uL; Monocyte% 24.9 % (0-10); NRBC Flagged by Analyzer 0 % (0-5); Neutrophil % 54.1 % (47-70); POSITIVE DIFFERENTIAL YES; Platelet Count 164 K/mm3 (150-450); RBC Distribution Width CV 14.2 % (11.6-14.6); RBC Distribution Width SD 47.6 fl (35.1-43.9); White Blood Count 2.8 K/mm3 (4.4-11.0)
[2020-05-15 06:32] LABS: International Normalized Ratio 1.2; Prothrombin Time (Protime)PT. 14.5 SECONDS (11.7-14.9)
[2020-05-15 06:33] LABS: Partial Thromboplast Time 32.7 Seconds (24.1-36.2)
[2020-05-15 06:49] LABS: Anion Gap 7 (5-15); BUN 55 mg/dL (7-18); BUN/Creat Ratio 11.3 RATIO (10-20); Calcium,Total 8.4 mg/dL (8.5-10.1); Chloride 108 mmol/L (98-107); Creatinine, Serum 4.86 mg/dL (0.70-1.30); EST Glomerular Filtration Rate 13 mL/min (>60); Est Glom Filt Rate - Afr Amer 16 mL/min (>60); Estimated Creatinine Clearance 15.05 ml/min; Glucose 107 mg/dL (74-106); Potassium 4.5 mmol/L (3.5-5.1); Sodium Level 137 mmol/L (136-145)
[2020-05-15] MEDS: 0.9% Saline Lock 10 ML Syringe IV ×3 (10:59→18:07)
[2020-05-15] MEDS: Lactated Ringers 1,000 ML 100 ML IV ×2 (12:30→18:04)
[2020-05-15] MEDS: Cefazolin 2 GM in 0.9% Normal Saline 100 ML IV (12:33)
[2020-05-15] MEDS: Lidocaine Jelly 2% 20 ML Syringe (URO-JET) 20 APPLIC (12:44)
[2020-05-15] MEDS: Lubricating Jelly 60 GM Tube 30 GM TOPICAL (12:44)
--- NOTE | 2020-05-15 12:54 | PCM.OPRPT ---
Problem List (1) Prostate cancer metastatic to intraabdominal lymph node Status: Chronic Report of Operation Date of Procedure: 05/15/20 Pre-Operative Diagnosis: Left hydronephrosis, history of prostate cancer history of prior radiation and prostatectomy Post-Operative Diagnosis: Same Surgery/Procedure Performed:: Cystoscopy, left retrograde pyelogram interpretation fluoroscopic images, left stent placement Description of Surgical Findings:: Patient was taken back to the operating room after induction of general anesthesia, the patient was placed in dorsolithotomy position. The urethra and genitals were prepped and draped in usual sterile fashion. Using a 21 Azerbaij[place] rigid cystourethroscope the entire length of the urethra was normal then went into the bladder. He had a very tight bladder neck from prior radiation some scar tissue right at the bladder neck. It was difficult to get the scope through the bladder neck but was able to navigate the 21 [place] through it. Identified the trigone the left and right ureteral orifice. I then cannulated the left orifice and advanced a wire up into the kidney. I then backloaded a 5 Azerbaijani open ended catheter over the wire and injected contrast to delineate the anatomy. After the retrograde was performed I then used fluoroscopic images and guidance to advanced a wire up into the kidney and over the 0.038 glidewire I advanced a 6 [place] by 26 cm double pigtail stent. I then pulled the 0.038 Glidewire off and the stent coiled in the kidney bladder good position. The bladder was then drained. We confirmed the position of the stent by fluoroscopy. Patient anesthetic was reversed and was taken back to the PACU in good condition. Type of Anesthesia:: General Drains: 6fr x 26 cm stent - Admit VTE Documentation VTE Present on Admission: No VTE Mechan Device Prophylaxis: SCD's
[2020-05-15 13:02] LABS: Pathologist Review Reviewed
[2020-05-15 13:06] LABS: Pathologist Review Reviewed
--- NOTE | 2020-05-15 13:34 | PN_ITS ---
Patient Problems: Active and Suspected Problems (Last Reviewed 05/10/20 @ 11:[address] Hakan Okeefe, DO) CAITLIN (acute kidney injury) (Acute) Intractable nausea and vomiting (Acute) Subjective: Patient seen and examined. He had no complaints today. He is due to go for surgery with urology today. Review of symptoms otherwise negative. Is up to 4.86 today. Vitals/I&O's: Vital Signs Temp Pulse Resp BP Pulse Ox 97.1 F L 70 16 145/74 H 95 05/15/20 13:28 05/15/20 13:28 05/15/20 13:28 05/15/20 13:28 05/15/20 13:28 Oxygen Flow Rate (L/min) 2 Oxygen Delivery Method Room Air Weight: 163 lb 12.855 oz Body Mass Index (BMI) 24.9 Intake and Output for Last 24 Hours 05/13/20 05/14/20 05/15/20 23:59 23:59 23:59 Intake Total 2442.5 / 2842.5 3000 / 3000 2222.5 / 2222.5 Output Total 2200 / 2550 850 / 850 1300 / 1300 Balance 242.5 / 292.5 2150 / 2150 922.5 / 922.5 General: Alert, Oriented x3, Cooperative HEENT: Atraumatic, PERRLA, EOMI, Normocephalic Neck: Supple, No JVD, Negative Carotid Bruits Lungs: Clear to auscultation, Normal air movement Cardiovascular: Regular rate, No murmurs Abdomen: Bowel Sounds Present, Soft, Non Tender Extremities: No edema, Capillary Refill Less than 3 Seconds Skin: No rashes, No breakdown Musculoskeletal: No Tenderness to Palpation of Joints or Extremities Neurological: Cranial nerves II-XII grossly intact, Neuro grossly intact, Motor Exam 5/5 strength throughout Psych/Mental Status: Normal Affect, Appropriate, Alert and oriented to time, place, person, mood and affect Microbiology Past 72 Hours 05/14/20 18:45 Interface Orders SARS-CoV-2 Antigen (Rapid) - Final Laboratory Results 05/14/20 06:40: Diff Path Review Reviewed 05/15/20 06:10: WBC 2.8 L, RBC 2.90 L, Hgb 8.8 L, Hct 27.0 L, MCV 93.1, MCH 30.3, MCHC 32.6, RDW Std Deviation 47.6 H, RDW Coeff of Barbara 14.2, Plt Count 164, MPV 9.3, Immature Gran % (Auto) 4.700 H, Neut % (Auto) 54.1, Lymph % (Auto) 15.2 L, [place] % (Auto) 24.9 H, Eos % (Auto) 0.7, Baso % (Auto) 0.4, Absolute Neuts (auto) 1.5 L, Absolute Lymphs (auto) 0.42 L, Nucleated RBC % 0, Diff Path Review Reviewed 05/15/20 06:10: Sodium 137, Potassium 4.5, Chloride 108 H, Carbon Dioxide 22.0, Anion Gap 7, BUN 55 H, Creatinine 4.86 H, Estim Creat Clear Calc 15.05, Est GFR (MDRD) Af Amer 16 L, Est GFR (MDRD) Non-Af 13 L, BUN/Creatinine Ratio 11.3, Glucose 107 H, Calcium 8.4 L 05/15/20 06:10: PT 14.5, INR 1.2, APTT 32.7 Current Medications Acetaminophen (Acetaminophen 325 Mg Tablet) 650 mg PO Q6H PRN PRN PRN Reason: Pain Score 1-10/Temp > 100.7 F Aspirin (Aspirin E.C. 81 Mg Tablet) [facility] Last Admin: 05/15/20 08:43 Dose: Not Given Documented by: Calcium Carbonate (Calcium Carbonate 500 Mg Tablet) 500 mg PO Q4H PRN PRN PRN Reason: HEARTBURN Last Admin: 05/10/20 23:19 Dose: 500 mg Documented by: Enoxaparin Sodium (Enoxaparin 30 Mg/0.3 Ml Syringe) 30 mg SC DAILY [facility] Last Admin: 05/15/20 10:29 Dose: Not Given Documented by: Fentanyl (Fentanyl 50 Mcg Patch) 50 mcg TD Q72H [facility] Last Admin: 05/14/20 17:50 Dose: 50 mcg Documented by: Sodium Bicarbonate 150 meq/ (Dextrose) 1,150 mls @ 75 mls/hr IV .[id number] [facility] Last Infusion: 05/15/20 11:10 Dose: 0 mls/hr Documented by: Lactated Ringer's () 1,000 mls @ 100 mls/hr IV .Q10H [facility] Lidocaine/Diphenhydr/Alum/Mg/Simeth (Bmx Liquid 180 Ml) 15 ml PO ACHS PRN PRN Reason: ORAL PAIN Last Admin: 05/11/20 17:56 Dose: 15 ml Documented by: Morphine Sulfate (Morphine 2 Mg/Ml Syringe) 2 mg IV Q3H PRN PRN PRN Reason: Pain Score 6-10 Last Admin: 05/15/20 10:59 Dose: 2 mg Documented by: Ondansetron HCl (Ondansetron 4 Mg/2 Ml Vial) 4 mg IV Q8H PRN PRN PRN Reason: NAUSEA/VOMITING Last Admin: 05/12/20 16:43 Dose: 4 mg Documented by: Oxycodone HCl (Oxycodone 5 Mg Tablet) 5 mg PO Q6H PRN PRN Reason: Pain Score 4-5 Last Admin: 05/12/20 18:38 Dose: 5 mg Documented by: Pantoprazole Sodium (Pantoprazole Sodium 40 Mg Tablet) 40 mg PO DAILY [facility] Last Admin: 05/15/20 10:34 Dose: Not Given Documented by: Polyethylene Glycol (Polyethylene Glycol 3350 17 Gm Packet) 17 gm PO DAILY PRN PRN PRN Reason: CONSTIPATION Last Admin: 05/14/20 09:27 Dose: 17 gm Documented by: Prednisone (Pred[facility] 10 Mg Tablet) [facility] Last Admin: 05/15/20 08:43 Dose: Not Given Documented by: Prochlorperazine Maleate (Prochlorperazine 5 Mg Tablet) 10 mg PO Q6H PRN PRN PRN Reason: NAUSEA Last Admin: 05/12/20 01:43 Dose: 10 mg Documented by: Senna/Docusate Sodium (Senna/Docusate Sodium 1 Tablet) 2 tablet PO BID PRN PRN PRN Reason: CONSTIPATION Last Admin: 05/14/20 21:59 Dose: 2 tablet Documented by: Sodium Chloride (0.9% Saline Lock 10 Ml Syringe) 10 - 40 ml IV UD PRN PRN Reason: SALINE FLUSH Last Admin: 05/15/20 10:59 Dose: 10 ml Documented by: STROKE Vital Signs/Narrative: Vital Signs Temp Pulse Resp BP Pulse Ox 05/15/20 13:28 97.1 F L 70 16 145/74 H 95 05/15/20 13:25 72 16 137/81 H 94 05/15/20 13:20 76 16 137/81 H 92 05/15/20 13:16 69 16 153/79 H 99 05/15/20 13:10 67 16 137/75 H 97 05/15/20 13:08 97.1 F L 64 16 137/75 H 92 05/15/20 12:12 98.7 F 65 12 148/72 H 97 05/15/20 11:15 98.6 F 69 16 95 Medical Necessity - Tobacco Use Smoking Status: Never smoker Assessment/Plan All Active Problems (Last Reviewed 05/10/20 @ 11:[address] Hakan Okeefe, DO) Encounter for adjustment and management of vascular access device (Acute) Encounter for education (Acute) Chemotherapy management, encounter for (Acute) Chemotherapy follow-up examination (Acute) Mucositis (ulcerative) due to antineoplastic therapy (Acute) Erectile dysfunction after radical prostatectomy (Acute) Abscess (Acute) Left lower quadrant pain (Resolved) Constipation (Acute) Stomatitis (Acute) Neutropenia, drug-induced (Acute) CAITLIN (acute kidney injury) (Acute) Intractable nausea and vomiting (Acute) #CAITLIN * CR is up to 4.86 today * renal USG showed moderate left sided hydronephrosis * FeNA was also low, suggesting a pre-renal component * continue hydration with IVF * nephrology and urology on board. for cystoscopy and probable stent placement by urology today * lisinopril on hold * #Metastatic prostate cancer * receiving chemotherapy. Has completed radiation. * on prednisone * mets to the lymph nodes * follow up with oncology and radiation oncology on outpatient basis * #HTN: Lisinopril on hold on account of CAITLIN. #Hyperlipidemia: On ezetimibe osteoarthritis: stable DVT prophylaxis: lovenox, renally dosed Inpatient E&M: [id number] Subs Hosp L2
--- NOTE | 2020-05-15 15:57 | CHAPLAIN ---
Type of Pastoral Visit _x__ Initial Visit ___ Follow-up Visit ___ On-call Visit ___ General Patient Visit ___ Spiritual Assessment ___ Family Conference ___ Bereavement ___ Rapid Response ___ Code Blue ___ Other (describe below) Pastoral Care Referral From ___ Patient _x__ Family ___ Nurse ___ Physician ___ Grease Monkey ___ Certified First Assistant ___ Other (describe below) Sacrament/Intervention ___ Active listening ___ Anointing ___ Anabaptism ___ Bereavement ___ Communion ___ Christal exploration ___ ___ Life review ___ Prayer ___ Reconciliation ___ Sacrament of Sick _x__ Supportive presence ___ Wedding ___ Other (describe below) Pastoral Comments patient had procedure done today and he admits he is not talkative right now; pt is introduced to spiritual/emotional care and is given offer of support as desired; SO is with patient in the room
[2020-05-16] MEDS: Morphine 2 MG/ML Syringe IV ×7 (00:08→21:14)
[2020-05-16 02:15] VITALS: BP 158/80; PULSE 71; RESP 16; TEMP 36.9; O2SAT 94
[2020-05-16] MEDS: Lactated Ringers 1,000 ML 100 ML IV ×2 (03:38→13:41)
[2020-05-16 05:17] LABS: Hematocrit 27.6 % (40-54); Hemoglobin 8.8 g/dL (13.0-16.5); Mean Corp Hgb Conc 31.9 g/dL (32-36); Mean Corpuscular Hgb 30.1 pg (27.0-32.0); Mean Corpuscular Volume 94.5 fL (80-94); Mean Platelet Vol. 9.5 fl (6.2-12.0); POSITIVE COUNT YES; POSITIVE DIFFERENTIAL YES; POSITIVE MORPHOLOGY YES; Platelet Count 169 K/mm3 (150-450); RBC Distribution Width CV 14.6 % (11.6-14.6); RBC Distribution Width SD 49.7 fl (35.1-43.9); Red Blood Count 2.92 M/mm3 (4.6-6.2); White Blood Count 3.6 K/mm3 (4.4-11.0)
[2020-05-16 05:21] LABS: Differential Indicated MANUAL DIFF
[2020-05-16 05:35] LABS: Anion Gap 7 (5-15); BUN 51 mg/dL (7-18); BUN/Creat Ratio 10.7 RATIO (10-20); Calcium,Total 8.4 mg/dL (8.5-10.1); Chloride 109 mmol/L (98-107); Creatinine, Serum 4.78 mg/dL (0.70-1.30); EST Glomerular Filtration Rate 13 mL/min (>60); Est Glom Filt Rate - Afr Amer 16 mL/min (>60); Glucose 88 mg/dL (74-106); Potassium 4.7 mmol/L (3.5-5.1); Sodium Level 139 mmol/L (136-145)
[2020-05-16 06:20] LABS: Lymphocyte 12 % (19-41); Lymphocyte # 0.43 X10^3/ul (4.0); Metamyelocyte 3 % (0-1); Monocyte 16 % (0-10); Myelocyte 2 (0-0); Neutrophil-Band 2 % (0-5); Neutrophil-Segmented 65 % (47-70); Platelet Estimate ADEQUATE (ADEQ); Red Cell Morphology NORM C+C NORMAL (NORM C&C); Total Cells Counted 100 (MANUAL DIFF)
[2020-05-16 06:21] LABS: Absolute Lymphocyte Count 0.43 X10^3/uL (0.83-4.51); Absolute Neutrophil Count 2.4 X10^3/uL (2.0-7.7); Neutrophil # 2.42 X10^3/uL (2.7-7.7)
[2020-05-16] MEDS: Senna/Docusate Sodium 1 Tablet 2 TABLET PO (07:42)
[2020-05-16] MEDS: Ondansetron 4 MG/2 ML Vial IV (07:42)
[2020-05-16] MEDS: Polyethylene Glycol 3350 17 GM PACKET PO (07:42)
[2020-05-16] MEDS: predniSONE 10 MG Tablet PO (07:43)
[2020-05-16] MEDS: Pantoprazole Sodium 40 MG Tablet PO (07:43)
[2020-05-16] MEDS: Enoxaparin 30 MG/0.3 ML Syringe SC (07:43)
[2020-05-16] MEDS: Aspirin E.C. 81 MG Tablet PO (07:43)
--- NOTE | 2020-05-16 12:17 | PCM.PN.HOSP ---
Patient Problems: Active and Suspected Problems (Last Reviewed 05/10/20 @ 11:[address] Hakan Okeefe, DO) CAITLIN (acute kidney injury) (Acute) Intractable nausea and vomiting (Acute) Subjective: Patient seen and examined. He had no complaints. He had cystoscopy with stent placement of ureter yesterday. He tolerated procedure well. Review of systems otherwise negative. Hemodynamically stable. Creatinine is trended down slightly to 4.78. Vitals/I&O's: Vital Signs Temp Pulse Resp BP Pulse Ox 98.4 F 71 16 158/80 H 94 05/16/20 02:15 05/16/20 02:15 05/16/20 02:15 05/16/20 02:15 05/16/20 02:15 Oxygen Flow Rate (L/min) 2 Oxygen Delivery Method Room Air Weight: 163 lb 12.855 oz Body Mass Index (BMI) 24.9 Intake and Output for Last 24 Hours 05/14/20 05/15/20 05/16/20 23:59 23:59 23:59 Intake Total 3000 / 3000 2879.17 / 2879.17 1206.67 / 1206.67 Output Total 850 / 850 2325 / 2325 2150 / 2150 Balance 2150 / 2150 554.17 / 554.17 -943.33 / -943.33 General: Alert, Oriented x3, Cooperative HEENT: Atraumatic, PERRLA, EOMI, Normocephalic Neck: Supple, No JVD, Negative Carotid Bruits Lungs: Clear to auscultation, Normal air movement Cardiovascular: Regular rate, No murmurs Abdomen: Bowel Sounds Present, Soft, Non Tender Extremities: No edema, Capillary Refill Less than 3 Seconds Skin: No rashes, No breakdown Musculoskeletal: No Tenderness to Palpation of Joints or Extremities Neurological: Cranial nerves II-XII grossly intact, Neuro grossly intact, Motor Exam 5/5 strength throughout Psych/Mental Status: Normal Affect, Appropriate, Alert and oriented to time, place, person, mood and affect Microbiology Past 72 Hours 05/14/20 18:45 Interface Orders SARS-CoV-2 Antigen (Rapid) - Final Laboratory Results 05/14/20 06:40: Diff Path Review Reviewed 05/15/20 06:10: Diff Path Review Reviewed 05/16/20 05:00: WBC 3.6 L, RBC 2.92 L, Hgb 8.8 L, Hct 27.6 L, MCV 94.5 H, MCH 30.1, MCHC 31.9 L, RDW Std Deviation 49.7 H, RDW Coeff of Barbara 14.6, Plt Count 169, MPV 9.5, Neut % (Auto) Not Reportable, Absolute Neuts (auto) 2.4, Absolute Lymphs (auto) 0.43 L, Total Counted 100, Neutrophils % (Manual) 65, Band Neutrophils % 2, Lymphocytes % (Manual) 12 L, Monocytes % (Manual) 16 H, Metamyelocytes % 3 H, Myelocytes % 2 H, Diff Path Review July, Platelet Estimate ADEQUATE, RBC Morphology NORM C+C 05/16/20 05:00: Sodium 139, Potassium 4.7, Chloride 109 H, Carbon Dioxide 23.0, Anion Gap 7, BUN 51 H, Creatinine 4.78 H, Estim Creat Clear Calc 15.30, Est GFR (MDRD) Af Amer 16 L, Est GFR (MDRD) Non-Af 13 L, BUN/Creatinine Ratio 10.7, Glucose 88, Calcium 8.4 L Diagnostic Data Acute Abdomen Series 05/10/20 13:05 IMPRESSION: No acute findings in the chest, abdomen or pelvis. Electronically Signed: Adam Pacheco MD ([place]) at 14:47 EST , Service support , Renal Ultrasound 05/11/20 07:48 IMPRESSION: Right renal cysts. Moderate degree of left hydronephrosis. Electronically Signed: Siva Dale MD at 9:05 EST , Service support , Current Medications Acetaminophen (Acetaminophen 325 Mg Tablet) 650 mg PO Q6H PRN PRN PRN Reason: Pain Score 1-10/Temp > 100.7 F Aspirin (Aspirin E.C. 81 Mg Tablet) 81 mg PO [facility]ILY[facility] Last Admin: 05/16/20 07:43 Dose: 81 mg Documented by: Calcium Carbonate (Calcium Carbonate 500 Mg Tablet) 500 mg PO Q4H PRN PRN PRN Reason: HEARTBURN Last Admin: 05/10/20 23:19 Dose: 500 mg Documented by: Enoxaparin Sodium (Enoxaparin 30 Mg/0.3 Ml Syringe) 30 mg SC DAILY [facility] Last Admin: 05/16/20 07:43 Dose: 30 mg Documented by: Fentanyl (Fentanyl 50 Mcg Patch) 50 mcg TD Q72H [facility] Last Admin: 05/14/20 17:50 Dose: 50 mcg Documented by: Lactated Ringer's () 1,000 mls @ 100 mls/hr IV .Q10H [facility] Last Admin: 05/16/20 03:38 Dose: 100 mls/hr Documented by: Lidocaine/Diphenhydr/Alum/Mg/Simeth (Bmx Liquid 180 Ml) 15 ml PO ACHS PRN PRN Reason: ORAL PAIN Last Admin: 05/11/20 17:56 Dose: 15 ml Documented by: Morphine Sulfate (Morphine 2 Mg/Ml Syringe) 2 mg IV Q3H PRN PRN PRN Reason: Pain Score 6-10 Last Admin: 05/16/20 09:26 Dose: 2 mg Documented by: Ondansetron HCl (Ondansetron 4 Mg/2 Ml Vial) 4 mg IV Q8H PRN PRN PRN Reason: NAUSEA/VOMITING Last Admin: 05/16/20 07:42 Dose: 4 mg Documented by: Oxycodone HCl (Oxycodone 5 Mg Tablet) 5 mg PO Q6H PRN PRN Reason: Pain Score 4-5 Last Admin: 05/12/20 18:38 Dose: 5 mg Documented by: Pantoprazole Sodium (Pantoprazole Sodium 40 Mg Tablet) 40 mg PO DAILY [facility] Last Admin: 05/16/20 07:43 Dose: 40 mg Documented by: Polyethylene Glycol (Polyethylene Glycol 3350 17 Gm Packet) 17 gm PO DAILY PRN PRN PRN Reason: CONSTIPATION Last Admin: 05/16/20 07:42 Dose: 17 gm Documented by: Prednisone (Pred[facility] 10 Mg Tablet) [facility] Last Admin: 05/16/20 07:43 Dose: 10 mg Documented by: Prochlorperazine Maleate (Prochlorperazine 5 Mg Tablet) 10 mg PO Q6H PRN PRN PRN Reason: NAUSEA Last Admin: 05/12/20 01:43 Dose: 10 mg Documented by: Senna/Docusate Sodium (Senna/Docusate Sodium 1 Tablet) 2 tablet PO BID PRN PRN PRN Reason: CONSTIPATION Last Admin: 05/16/20 07:42 Dose: 2 tablet Documented by: Sodium Chloride (0.9% Saline Lock 10 Ml Syringe) 10 - 40 ml IV UD PRN PRN Reason: SALINE FLUSH Last Admin: 05/15/20 18:07 Dose: 10 ml Documented by: Medical Necessity - Tobacco Use Smoking Status: Never smoker Assessment/Plan All Active Problems (Last Reviewed 05/10/20 @ 11:[address] Hakan Okeefe, DO) Encounter for adjustment and management of vascular access device (Acute) Encounter for education (Acute) Chemotherapy management, encounter for (Acute) Chemotherapy follow-up examination (Acute) Mucositis (ulcerative) due to antineoplastic therapy (Acute) Erectile dysfunction after radical prostatectomy (Acute) Abscess (Acute) Left lower quadrant pain (Resolved) Constipation (Acute) Stomatitis (Acute) Neutropenia, drug-induced (Acute) CAITLIN (acute kidney injury) (Acute) Intractable nausea and vomiting (Acute) #CAITLIN CR is 4.78 today; has shown a slight downward trend renal USG showed moderate left sided hydronephrosis FeNA was also low, suggesting a pre-renal component continue hydration with [facility] nephrology and urology on board. had cystoscopy with left ureteral stent placement yesterday. lisinopril on hold continue trending Cr #Metastatic prostate cancer receiving chemotherapy. Has completed radiation. on prednisone mets to the lymph nodes follow up with oncology and radiation oncology on outpatient basis #HTN: Lisinopril on hold on account of CAITLIN. #Hyperlipidemia: On ezetimibe osteoarthritis: stable DVT prophylaxis: lovenox, renally dosed Inpatient E&M: [id number] Subs Hosp L2
[2020-05-16 13:54] LABS: Pathologist Review Reviewed
[2020-05-16 13:56] VITALS: BP 148/80; PULSE 77; RESP 16; TEMP 36.6; O2SAT 94
--- NOTE | 2020-05-16 14:20 | CASEMGMT ---
RN CM in to discuss discharge planning with patient. Patient denies needs at discharge and plans to have girlfriend assist with care if needed. Patient had no further questions or concerns at this time.
--- NOTE | 2020-05-16 14:33 | PN.RENAL_ITS ---
Patient Problems: Active and Suspected Problems (Last Reviewed 05/10/20 @ 11:[address] Hakan Okeefe, DO) CAITLIN (acute kidney injury) (Acute) Intractable nausea and vomiting (Acute) Subjective: Complaining of scrotum edema No N/V/SOB. No worsening legs edema - Physical Exam Vitals/I&O's: Vital Signs Temp Pulse Resp BP Pulse Ox 98 F 77 16 148/80 H 94 05/16/20 13:56 05/16/20 13:56 05/16/20 13:56 05/16/20 13:56 05/16/20 13:56 Oxygen Flow Rate (L/min) 2 Oxygen Delivery Method Room Air Weight: 74.3 kg Body Mass Index (BMI) 24.9 Intake and Output for Last 24 Hours 05/14/20 05/15/20 05/16/20 23:59 23:59 23:59 Intake Total 3000 / 3000 2879.17 / 2879.17 2206.67 / 2206.67 Output Total 850 / 850 2325 / 2325 2150 / 2150 Balance 2150 / 2150 554.17 / 554.17 56.67 / 56.67 General: Alert, Oriented x3 HEENT: Atraumatic Oral: Moist Mucosa Neck: Supple, No JVD Lungs: Clear to auscultation, Normal air movement, No rhonchi, No wheeze Cardiovascular: Regular rate Abdomen: Bowel Sounds Present, Soft, Non Tender, No Hepato-splenomegaly Extremities: No clubbing, No cyanosis, Edema - trace edema of LE Skin: No rashes Musculoskeletal: No Tenderness to Palpation of Joints or Extremities Lymphatic: No Cervical, Supraclavicular, or Inguinal Adenopathy Neurological: Cranial nerves II-XII grossly intact, Neuro grossly intact Psych/Mental Status: Appropriate Microbiology Past 72 Hours 05/14/20 18:45 Interface Orders SARS-CoV-2 Antigen (Rapid) - Final Laboratory Results 05/16/20 05:00: WBC 3.6 L, RBC 2.92 L, Hgb 8.8 L, Hct 27.6 L, MCV 94.5 H, MCH 30.1, MCHC 31.9 L, RDW Std Deviation 49.7 H, RDW Coeff of Barbara 14.6, Plt Count 169, MPV 9.5, Neut % (Auto) Not Reportable, Absolute Neuts (auto) 2.4, Absolute Lymphs (auto) 0.43 L, Total Counted 100, Neutrophils % (Manual) 65, Band Neutrophils % 2, Lymphocytes % (Manual) 12 L, Monocytes % (Manual) 16 H, Metamyelocytes % 3 H, Myelocytes % 2 H, Diff Path Review Reviewed, Platelet Estimate ADEQUATE, RBC Morphology NORM C+C 05/16/20 05:00: Sodium 139, Potassium 4.7, Chloride 109 H, Carbon Dioxide 23.0, Anion Gap 7, BUN 51 H, Creatinine 4.78 H, Estim Creat Clear Calc 15.30, Est GFR (MDRD) Af Amer 16 L, Est GFR (MDRD) Non-Af 13 L, BUN/Creatinine Ratio 10.7, Glucose 88, Calcium 8.4 L Current Medications Acetaminophen (Acetaminophen 325 Mg Tablet) 650 mg PO Q6H PRN PRN PRN Reason: Pain Score 1-10/Temp > 100.7 F Aspirin (Aspirin E.C. 81 Mg Tablet) [facility] Last Admin: 05/16/20 07:43 Dose: 81 mg Documented by: Calcium Carbonate (Calcium Carbonate 500 Mg Tablet) 500 mg PO Q4H PRN PRN PRN Reason: HEARTBURN Last Admin: 05/10/20 23:19 Dose: 500 mg Documented by: Enoxaparin Sodium (Enoxaparin 30 Mg/0.3 Ml Syringe) 30 mg SC DAILY [facility] Last Admin: 05/16/20 07:43 Dose: 30 mg Documented by: Fentanyl (Fentanyl 50 Mcg Patch) 50 mcg TD Q72H [facility] Last Admin: 05/14/20 17:50 Dose: 50 mcg Documented by: Lidocaine/Diphenhydr/Alum/Mg/Simeth (Bmx Liquid 180 Ml) 15 ml PO ACHS PRN PRN Reason: ORAL PAIN Last Admin: 05/11/20 17:56 Dose: 15 ml Documented by: Morphine Sulfate (Morphine 2 Mg/Ml Syringe) 2 mg IV Q3H PRN PRN PRN Reason: Pain Score 6-10 Last Admin: 05/16/20 12:32 Dose: 2 mg Documented by: Ondansetron HCl (Ondansetron 4 Mg/2 Ml Vial) 4 mg IV Q8H PRN PRN PRN Reason: NAUSEA/VOMITING Last Admin: 05/16/20 07:42 Dose: 4 mg Documented by: Oxycodone HCl (Oxycodone 5 Mg Tablet) 5 mg PO Q6H PRN PRN Reason: Pain Score 4-5 Last Admin: 05/12/20 18:38 Dose: 5 mg Documented by: Pantoprazole Sodium (Pantoprazole Sodium 40 Mg Tablet) 40 mg PO DAILY [facility] Last Admin: 05/16/20 07:43 Dose: 40 mg Documented by: Polyethylene Glycol (Polyethylene Glycol 3350 17 Gm Packet) 17 gm PO DAILY PRN PRN PRN Reason: CONSTIPATION Last Admin: 05/16/20 07:42 Dose: 17 gm Documented by: Prednisone (Prednisone 10 Mg Tablet) 10 mg PO DAILYCM [facility] Last Admin: 05/16/20 07:43 Dose: 10 mg Documented by: Prochlorperazine Maleate (Prochlorperazine 5 Mg Tablet) 10 mg PO Q6H PRN PRN PRN Reason: NAUSEA Last Admin: 05/12/20 01:43 Dose: 10 mg Documented by: Senna/Docusate Sodium (Senna/Docusate Sodium 1 Tablet) 2 tablet PO BID PRN PRN PRN Reason: CONSTIPATION Last Admin: 05/16/20 07:42 Dose: 2 tablet Documented by: Sodium Chloride (0.9% Saline Lock 10 Ml Syringe) 10 - 40 ml IV UD PRN PRN Reason: SALINE FLUSH Last Admin: 05/15/20 18:07 Dose: 10 ml Documented by: Medical Necessity - Tobacco Use Smoking Status: Never smoker Assessment/Plan All Active Problems (Last Reviewed 05/10/20 @ 11:[address] Hakan Okeefe, DO) Encounter for adjustment and management of vascular access device (Acute) Encounter for education (Acute) Chemotherapy management, encounter for (Acute) Chemotherapy follow-up examination (Acute) Mucositis (ulcerative) due to antineoplastic therapy (Acute) Erectile dysfunction after radical prostatectomy (Acute) Abscess (Acute) Left lower quadrant pain (Resolved) Constipation (Acute) Stomatitis (Acute) Neutropenia, drug-induced (Acute) CAITLIN (acute kidney injury) (Acute) Intractable nausea and vomiting (Acute) 1- Acute kidney injury . Cr was 0.8 mg/dl in Mar 2020 CAITLIN is likely post renal obstruction . hyman cath placement attempt on 05/13/20 failed. renal US showed Left side hydronephrosis patient could also has CAITLIN from [facility] s/p cystoscopy with L ureter stent placement with hyman cath placement 05/15 Cr is slightly better for the 1st day. Cr is 4.7 mg/dl this am Good UOP Continue holding home ACEI d/c IVF No need for [employer] Avoid IV contrast Check RFP in am 2- Left side hydronephrosis. urology service is on consult s/p cystoscopy with L ureter stent placement with hyman cath placement 05/15 Urology service is following 3- metabolic acidosis. from NS and CAITLIN resolved. D/C HC03 drip 4- HTN: BP is well controlled continue holding home ACEI Renal team will continue to follow Please call if any question or concern at [phone] Chai Morgan MD
[2020-05-16] MEDS: 0.9% Saline Lock 10 ML Syringe IV ×2 (18:03→21:16)
[2020-05-16 20:58] VITALS: BP 138/91; PULSE 72; RESP 16; TEMP 36.8; O2SAT 93
[2020-05-17] MEDS: Morphine 2 MG/ML Syringe IV ×4 (03:01→18:45)
[2020-05-17] MEDS: 0.9% Saline Lock 10 ML Syringe IV ×6 (03:02→21:06)
[2020-05-17 03:04] VITALS: BP 149/73; PULSE 77; RESP 16; TEMP 36.6; O2SAT 92
[2020-05-17 08:10] VITALS: BP 154/77; PULSE 71; RESP 18; TEMP 37.1; O2SAT 92
[2020-05-17 08:19] LABS: Hematocrit 27.8 % (40-54); Mean Corp Hgb Conc 32.4 g/dL (32-36); Mean Corpuscular Volume 92.7 fL (80-94); Mean Platelet Vol. 9.5 fl (6.2-12.0); POSITIVE COUNT YES; POSITIVE DIFFERENTIAL YES; POSITIVE MORPHOLOGY YES; Platelet Count 181 K/mm3 (150-450); RBC Distribution Width CV 14.6 % (11.6-14.6); RBC Distribution Width SD 49.1 fl (35.1-43.9); White Blood Count 4.5 K/mm3 (4.4-11.0)
[2020-05-17 08:21] LABS: Differential Indicated MANUAL DIFF
[2020-05-17] MEDS: Ondansetron 4 MG/2 ML Vial IV ×2 (08:21→21:06)
[2020-05-17 08:38] LABS: Anion Gap 8 (5-15); BUN 45 mg/dL (7-18); BUN/Creat Ratio 11.2 RATIO (10-20); Calcium,Total 8.7 mg/dL (8.5-10.1); Chloride 106 mmol/L (98-107); Creatinine, Serum 4.02 mg/dL (0.70-1.30); EST Glomerular Filtration Rate 16 mL/min (>60); Est Glom Filt Rate - Afr Amer 19 mL/min (>60); Glucose 90 mg/dL (74-106); Potassium 4.3 mmol/L (3.5-5.1); Sodium Level 139 mmol/L (136-145)
[2020-05-17 08:57] LABS: Lymphocyte 21 % (19-41); Metamyelocyte 6 % (0-1); Monocyte 3 % (0-10); Myelocyte 2 (0-0); Neutrophil-Band 6 % (0-5); Neutrophil-Segmented 62 % (47-70); Nucleated Red Bld Cells,Manual 1 % (0-5); Platelet Estimate ADEQUATE (ADEQ); Red Cell Morphology NORM C+C NORMAL (NORM C&C); Total Cells Counted 100 (MANUAL DIFF)
[2020-05-17 08:58] LABS: Absolute Lymphocyte Count 0.94 X10^3/uL (0.83-4.51); Lymphocyte # 0.94 X10^3/ul (4.0); Neutrophil # 3.04 X10^3/uL (2.7-7.7)
[2020-05-17] MEDS: Enoxaparin 30 MG/0.3 ML Syringe SC (09:08)
[2020-05-17] MEDS: Pantoprazole Sodium 40 MG Tablet PO (09:08)
[2020-05-17] MEDS: predniSONE 10 MG Tablet PO (09:08)
[2020-05-17] MEDS: Aspirin E.C. 81 MG Tablet PO (09:08)
--- NOTE | 2020-05-17 09:15 | PCM.CONS.B ---
Problem List (1) Prostate cancer metastatic to intraabdominal lymph node Status: Chronic - Consult Date of Consult: 05/17/20 64-year-old male with metastatic prostate cancer who has a sudden rise in creatinine over the last month found to have left hydronephrosis he underwent stent placement earlier this week and then was having difficulty with urination retaining after this so we put a catheter in. Now he is has fairly good urine output I would expect his creatinine to hopefully improve especially if there was postobstructive possible that there may be some occult component of intrinsic renal disease but with his normal renal function a month ago I recommend he will go home with a catheter he can follow-up in the office in 2 weeks to see me check another creatinine and hopefully get the catheter out that point. Once he his creatinine started going in the right direction I think he can be discharged.
--- NOTE | 2020-05-17 12:17 | PCM.PN.HOSP ---
Patient Problems: Active and Suspected Problems (Last Reviewed 05/10/20 @ 11:[address] Hakan Okeefe, DO) CAITLIN (acute kidney injury) (Acute) Intractable nausea and vomiting (Acute) Subjective: Patient seen and examined. He has no complaints today. Review of signs otherwise negative. Creatinine is 4.02. He has remained hemodynamically stable. Vitals/I&O's: Vital Signs Temp Pulse Resp BP Pulse Ox 98.7 F 71 18 154/77 H 92 05/17/20 08:10 05/17/20 08:10 05/17/20 08:10 05/17/20 08:10 05/17/20 08:10 Oxygen Flow Rate (L/min) 2 Oxygen Delivery Method Room Air Weight: 163 lb 12.855 oz Body Mass Index (BMI) 24.9 Intake and Output for Last 24 Hours 05/15/20 05/16/20 05/17/20 23:59 23:59 23:59 Intake Total 2879.17 / 2879.17 2958.34 / 2958.34 500 / 500 Output Total 2325 / 2325 4750 / 4750 1100 / 1100 Balance 554.17 / 554.17 -1791.66 / -1791.66 -600 / -600 General: Alert, Oriented x3, Cooperative HEENT: Atraumatic, PERRLA, EOMI, Normocephalic Neck: Supple, No JVD, Negative Carotid Bruits Lungs: Clear to auscultation, Normal air movement Cardiovascular: Regular rate, No murmurs Abdomen: Bowel Sounds Present, Soft, Non Tender Extremities: No edema, Capillary Refill Less than 3 Seconds Skin: No rashes, No breakdown Musculoskeletal: No Tenderness to Palpation of Joints or Extremities Neurological: Cranial nerves II-XII grossly intact, Neuro grossly intact, Motor Exam 5/5 strength throughout Psych/Mental Status: Normal Affect, Appropriate, Alert and oriented to time, place, person, mood and affect Microbiology Past 72 Hours 05/14/20 18:45 Interface Orders SARS-CoV-2 Antigen (Rapid) - Final Laboratory Results 05/16/20 05:00: Diff Path Review Reviewed 05/17/20 08:08: WBC 4.5, RBC 3.00 L, Hgb 9.0 L, Hct 27.8 L, MCV 92.7, MCH 30.0, MCHC 32.4, RDW Std Deviation 49.1 H, RDW Coeff of Barbara 14.6, Plt Count 181, MPV 9.5, Neut % (Auto) Not Reportable, Absolute Neuts (auto) 3.0, Absolute Lymphs (auto) 0.94, Total Counted 100, Neutrophils % (Manual) 62, Band Neutrophils % 6 H, Lymphocytes % (Manual) 21, Monocytes % (Manual) 3, Metamyelocytes % 6 H, Myelocytes % 2 H, Nucleated RBCs/100 WBC 1, Diff Path Review July, Platelet Estimate ADEQUATE, RBC Morphology NORM C+C 05/17/20 08:08: Sodium 139, Potassium 4.3, Chloride 106, Carbon Dioxide 25.0, Anion Gap 8, BUN 45 H, Creatinine 4.02 H, Estim Creat Clear Calc 18.20, Est GFR (MDRD) Af Amer 19 L, Est GFR (MDRD) Non-Af 16 L, BUN/Creatinine Ratio 11.2, Glucose 90, Calcium 8.7 Diagnostic Data Acute Abdomen Series 05/10/20 13:05 IMPRESSION: No acute findings in the chest, abdomen or pelvis. Electronically Signed: Adam Pacheco MD ([place]) at 14:47 EST , Service support , Renal Ultrasound 05/11/20 07:48 IMPRESSION: Right renal cysts. Moderate degree of left hydronephrosis. Electronically Signed: Siva Dale MD at 9:05 EST , Service support , Current Medications Acetaminophen (Acetaminophen 325 Mg Tablet) 650 mg PO Q6H PRN PRN PRN Reason: Pain Score 1-10/Temp > 100.7 F Aspirin (Aspirin E.C. 81 Mg Tablet) 81 mg PO DAILYCM [facility] Last Admin: 05/17/20 09:08 Dose: 81 mg Documented by: Calcium Carbonate (Calcium Carbonate 500 Mg Tablet) 500 mg PO Q4H PRN PRN PRN Reason: HEARTBURN Last Admin: 05/10/20 23:19 Dose: 500 mg Documented by: Enoxaparin Sodium (Enoxaparin 30 Mg/0.3 Ml Syringe) 30 mg SC DAILY [facility] Last Admin: 05/17/20 09:08 Dose: 30 mg Documented by: Fentanyl (Fentanyl 50 Mcg Patch) 50 mcg TD Q72H [facility] Last Admin: 05/14/20 17:50 Dose: 50 mcg Documented by: Lidocaine/Diphenhydr/Alum/Mg/Simeth (Bmx Liquid 180 Ml) 15 ml PO ACHS PRN PRN Reason: ORAL PAIN Last Admin: 05/11/20 17:56 Dose: 15 ml Documented by: Morphine Sulfate (Morphine 2 Mg/Ml Syringe) 2 mg IV Q3H PRN PRN PRN Reason: Pain Score 6-10 Last Admin: 05/17/20 08:16 Dose: 2 mg Documented by: Ondansetron HCl (Ondansetron 4 Mg/2 Ml Vial) 4 mg IV Q8H PRN PRN PRN Reason: NAUSEA/VOMITING Last Admin: 05/17/20 08:21 Dose: 4 mg Documented by: Oxycodone HCl (Oxycodone 5 Mg Tablet) 5 mg PO Q6H PRN PRN Reason: Pain Score 4-5 Last Admin: 05/12/20 18:38 Dose: 5 mg Documented by: Pantoprazole Sodium (Pantoprazole Sodium 40 Mg Tablet) 40 mg PO DAILY [facility] Last Admin: 05/17/20 09:08 Dose: 40 mg Documented by: Polyethylene Glycol (Polyethylene Glycol 3350 17 Gm Packet) 17 gm PO DAILY PRN PRN PRN Reason: CONSTIPATION Last Admin: 05/16/20 07:42 Dose: 17 gm Documented by: Prednisone ([facility] 10 Mg Tablet) [facility] Last Admin: 05/17/20 09:08 Dose: 10 mg Documented by: Prochlorperazine Maleate (Prochlorperazine 5 Mg Tablet) 10 mg PO Q6H PRN PRN PRN Reason: NAUSEA Last Admin: 05/12/20 01:43 Dose: 10 mg Documented by: Senna/Docusate Sodium (Senna/Docusate Sodium 1 Tablet) 2 tablet PO BID PRN PRN PRN Reason: CONSTIPATION Last Admin: 05/16/20 07:42 Dose: 2 tablet Documented by: Sodium Chloride (0.9% Saline Lock 10 Ml Syringe) 10 - 40 ml IV UD PRN PRN Reason: SALINE FLUSH Last Admin: 05/17/20 08:21 Dose: 10 ml Documented by: Medical Necessity - Tobacco Use Smoking Status: Never smoker Assessment/Plan All Active Problems (Last Reviewed 05/10/20 @ 11:[address] Hakan Okeefe, DO) Encounter for adjustment and management of vascular access device (Acute) Encounter for education (Acute) Chemotherapy management, encounter for (Acute) Chemotherapy follow-up examination (Acute) Mucositis (ulcerative) due to antineoplastic therapy (Acute) Erectile dysfunction after radical prostatectomy (Acute) Abscess (Acute) Left lower quadrant pain (Resolved) Constipation (Acute) Stomatitis (Acute) Neutropenia, drug-induced (Acute) CAITLIN (acute kidney injury) (Acute) Intractable nausea and vomiting (Acute) #CAITLIN due to left sided hydronephrosis CR is down to 4.02 today renal USG showed moderate left sided hydronephrosis FeNA was also low, suggesting a pre-renal component continue gentle hydration with IVF nephrology and urology on board. had cystoscopy with left ureteral stent placement lisinopril on hold continue trending Cr #Metastatic prostate cancer receiving chemotherapy. Has completed radiation. on prednisone mets to the lymph nodes follow up with oncology and radiation oncology on outpatient basis #HTN: Lisinopril on hold on account of CAITLIN. #Hyperlipidemia: On ezetimibe osteoarthritis: stable DVT prophylaxis: lovenox, renally dosed Inpatient E&M: 30343 Subs Hosp L2
[2020-05-17 13:44] VITALS: BP 149/74; PULSE 64; RESP 18; TEMP 36.9; O2SAT 93
[2020-05-17] MEDS: Senna/Docusate Sodium 1 Tablet 2 TABLET PO ×2 (13:59→21:50)
[2020-05-17] MEDS: Polyethylene Glycol 3350 17 GM PACKET PO (13:59)
--- NOTE | 2020-05-17 17:13 | PCM.PN.REN ---
Patient Problems: Active and Suspected Problems (Last Reviewed 05/10/20 @ 11:[address] Hakan Okeefe, DO) CAITLIN (acute kidney injury) (Acute) Intractable nausea and vomiting (Acute) Subjective: no new events - Physical Exam Vitals/I&O's: Vital Signs Temp Pulse Resp BP Pulse Ox 98.5 F 64 18 149/74 H 93 05/17/20 13:44 05/17/20 13:44 05/17/20 13:44 05/17/20 13:44 05/17/20 13:44 Oxygen Flow Rate (L/min) 2 Oxygen Delivery Method Room Air Weight: 74.3 kg Body Mass Index (BMI) 24.9 Intake and Output for Last 24 Hours 05/15/20 05/16/20 05/17/20 23:59 23:59 23:59 Intake Total 2879.17 / 2879.17 2958.34 / 2958.34 940 / 940 Output Total 2325 / 2325 4750 / 4750 1950 / 1950 Balance 554.17 / 554.17 -1791.66 / -1791.66 -1010 / -1010 General: Alert, Oriented x3, Cooperative HEENT: Atraumatic, PERRLA, EOMI, Normocephalic Neck: Supple, No JVD, Negative Carotid Bruits Lungs: Clear to auscultation, Normal air movement Cardiovascular: Regular rate, No murmurs Abdomen: Bowel Sounds Present, Soft, Non Tender Extremities: No edema, Capillary Refill Less than 3 Seconds Skin: No rashes, No breakdown Musculoskeletal: No Tenderness to Palpation of Joints or Extremities Neurological: Cranial nerves II-XII grossly intact Psych/Mental Status: Normal Affect, Appropriate Microbiology Past 72 Hours 05/14/20 18:45 Interface Orders SARS-CoV-2 Antigen (Rapid) - Final Laboratory Results 05/17/20 08:08: WBC 4.5, RBC 3.00 L, Hgb 9.0 L, Hct 27.8 L, MCV 92.7, MCH 30.0, MCHC 32.4, RDW Std Deviation 49.1 H, RDW Coeff of Barbara 14.6, Plt Count 181, MPV 9.5, Neut % (Auto) Not Reportable, Absolute Neuts (auto) 3.0, Absolute Lymphs (auto) 0.94, Total Counted 100, Neutrophils % (Manual) 62, Band Neutrophils % 6 H, Lymphocytes % (Manual) 21, Monocytes % (Manual) 3, Metamyelocytes % 6 H, Myelocytes % 2 H, Nucleated RBCs/100 WBC 1, Diff Path Review May , Platelet Estimate ADEQUATE, RBC Morphology NORM C+C 05/17/20 08:08: Sodium 139, Potassium 4.3, Chloride 106, Carbon Dioxide 25.0, Anion Gap 8, BUN 45 H, Creatinine 4.02 H, Estim Creat Clear Calc 18.20, Est GFR (MDRD) Af Amer 19 L, Est GFR (MDRD) Non-Af 16 L, BUN/Creatinine Ratio 11.2, Glucose 90, Calcium 8.7 Current Medications Acetaminophen (Acetaminophen 325 Mg Tablet) 650 mg PO Q6H PRN PRN PRN Reason: Pain Score 1-10/Temp > 100.7 F Aspirin (Aspirin E.C. 81 Mg Tablet) [facility] Last Admin: 05/17/20 09:08 Dose: 81 mg Documented by: Calcium Carbonate (Calcium Carbonate 500 Mg Tablet) 500 mg PO Q4H PRN PRN PRN Reason: HEARTBURN Last Admin: 05/10/20 23:19 Dose: 500 mg Documented by: Enoxaparin Sodium (Enoxaparin 30 Mg/0.3 Ml Syringe) 30 mg SC DAILY [facility] Last Admin: 05/17/20 09:08 Dose: 30 mg Documented by: Fentanyl (Fentanyl 50 Mcg Patch) 50 mcg TD Q72H [facility] Last Admin: 05/14/20 17:50 Dose: 50 mcg Documented by: Lidocaine/Diphenhydr/Alum/Mg/Simeth (Bmx Liquid 180 Ml) 15 ml PO ACHS PRN PRN Reason: ORAL PAIN Last Admin: 05/11/20 17:56 Dose: 15 ml Documented by: Morphine Sulfate (Morphine 2 Mg/Ml Syringe) 2 mg IV Q3H PRN PRN PRN Reason: Pain Score 6-10 Last Admin: 05/17/20 13:49 Dose: 2 mg Documented by: Ondansetron HCl (Ondansetron 4 Mg/2 Ml Vial) 4 mg IV Q8H PRN PRN PRN Reason: NAUSEA/VOMITING Last Admin: 05/17/20 08:21 Dose: 4 mg Documented by: Oxycodone HCl (Oxycodone 5 Mg Tablet) 5 mg PO Q6H PRN PRN Reason: Pain Score 4-5 Last Admin: 05/12/20 18:38 Dose: 5 mg Documented by: Pantoprazole Sodium (Pantoprazole Sodium 40 Mg Tablet) 40 mg PO DAILY [facility] Last Admin: 05/17/20 09:08 Dose: 40 mg Documented by: Polyethylene Glycol (Polyethylene Glycol 3350 17 Gm Packet) 17 gm PO DAILY PRN PRN PRN Reason: CONSTIPATION Last Admin: 05/17/20 13:59 Dose: 17 gm Documented by: Prednisone (Prednisone 10 Mg Tablet) 10 mg PO DAILYCM [facility] Last Admin: 05/17/20 09:08 Dose: 10 mg Documented by: Prochlorperazine Maleate (Prochlorperazine 5 Mg Tablet) 10 mg PO Q6H PRN PRN PRN Reason: NAUSEA Last Admin: 05/12/20 01:43 Dose: 10 mg Documented by: Senna/Docusate Sodium (Senna/Docusate Sodium 1 Tablet) 2 tablet PO BID PRN PRN PRN Reason: CONSTIPATION Last Admin: 05/17/20 13:59 Dose: 2 tablet Documented by: Sodium Chloride (0.9% Saline Lock 10 Ml Syringe) 10 - 40 ml IV UD PRN PRN Reason: SALINE FLUSH Last Admin: 05/17/20 13:49 Dose: 10 ml Documented by: Medical Necessity - Tobacco Use Smoking Status: Never smoker Assessment/Plan All Active Problems (Last Reviewed 05/10/20 @ 11:[address] Hakan Okeefe, DO) Encounter for adjustment and management of vascular access device (Acute) Encounter for education (Acute) Chemotherapy management, encounter for (Acute) Chemotherapy follow-up examination (Acute) Mucositis (ulcerative) due to antineoplastic therapy (Acute) Erectile dysfunction after radical prostatectomy (Acute) Abscess (Acute) Left lower quadrant pain (Resolved) Constipation (Acute) Stomatitis (Acute) Neutropenia, drug-induced (Acute) CAITLIN (acute kidney injury) (Acute) Intractable nausea and vomiting (Acute) 1- Acute kidney injury . Cr was 0.8 mg/dl in Mar 2020 CAITLIN is likely post renal obstruction . hyman cath placement attempt on 05/13/20 failed. renal US showed Left side hydronephrosis patient could also has CAITLIN from [facility] s/p cystoscopy with L ureter stent placement with hyman cath placement 05/15 Cr is better good urine output 2- Left side hydronephrosis. urology service is on consult s/p cystoscopy with L ureter stent placement with hyman cath placement 05/15 Urology service is following 3- metabolic acidosis. from NS and CAITLIN resolved.
[2020-05-17 20:53] VITALS: BP 148/86; PULSE 72; RESP 18; TEMP 37; O2SAT 93
--- NOTE | 2020-05-17 22:17 | NURSING ---
pt walked a full lap in the winters. tolerated well.
[2020-05-17] MEDS: oxyCODONE 5 MG Tablet PO (22:24)
[2020-05-17] MEDS: Acetaminophen 325 MG Tablet 650 MG PO (22:24)
[2020-05-18 03:32] VITALS: BP 152/84; PULSE 68; RESP 18; TEMP 36.9; O2SAT 94
[2020-05-18] MEDS: proCHLORPERazine 5 MG Tablet 10 MG PO (03:36)
[2020-05-18 05:57] LABS: Hematocrit 31.3 % (40-54); Hemoglobin 9.8 g/dL (13.0-16.5); Mean Corp Hgb Conc 31.3 g/dL (32-36); Mean Corpuscular Hgb 29.9 pg (27.0-32.0); Mean Corpuscular Volume 95.4 fL (80-94); Mean Platelet Vol. 9.5 fl (6.2-12.0); POSITIVE COUNT YES; POSITIVE MORPHOLOGY YES; Platelet Count 241 K/mm3 (150-450); RBC Distribution Width CV 14.6 % (11.6-14.6); RBC Distribution Width SD 50.6 fl (35.1-43.9); Red Blood Count 3.28 M/mm3 (4.6-6.2)
[2020-05-18 06:21] VITALS: BP 143/75; PULSE 78; RESP 18; TEMP 36.6; O2SAT 95
[2020-05-18 06:22] LABS: Differential Indicated MANUAL DIFF
[2020-05-18] MEDS: 0.9% Saline Lock 10 ML Syringe IV ×5 (06:22→20:24)
[2020-05-18] MEDS: Morphine 2 MG/ML Syringe IV ×3 (06:22→20:24)
[2020-05-18 06:35] LABS: Anion Gap 7 (5-15); BUN 40 mg/dL (7-18); BUN/Creat Ratio 11.4 RATIO (10-20); Calcium,Total 8.8 mg/dL (8.5-10.1); Chloride 104 mmol/L (98-107); EST Glomerular Filtration Rate 19 mL/min (>60); Est Glom Filt Rate - Afr Amer 23 mL/min (>60); Glucose 100 mg/dL (74-106); Potassium 4.7 mmol/L (3.5-5.1); Sodium Level 140 mmol/L (136-145)
[2020-05-18 06:59] LABS: Eosinophil 1 % (0-5); Lymphocyte 16 % (19-41); Metamyelocyte 5 % (0-1); Monocyte 8 % (0-10); Neutrophil-Band 3 % (0-5); Neutrophil-Segmented 67 % (47-70); Platelet Estimate ADEQUATE (ADEQ); Red Cell Morphology NORM C+C NORMAL (NORM C&C); Total Cells Counted 100 (MANUAL DIFF)
[2020-05-18 07:00] LABS: Absolute Lymphocyte Count 0.96 X10^3/uL (0.83-4.51); Absolute Neutrophil Count 4.2 X10^3/uL (2.0-7.7); Lymphocyte # 0.96 X10^3/ul (4.0)
[2020-05-18] MEDS: Ondansetron 4 MG/2 ML Vial IV ×2 (09:04→17:24)
[2020-05-18] MEDS: Pantoprazole Sodium 40 MG Tablet PO (09:12)
[2020-05-18] MEDS: Calcium Carbonate 500 MG Tablet PO (09:12)
[2020-05-18] MEDS: Acetaminophen 325 MG Tablet 650 MG PO (10:23)
[2020-05-18] MEDS: Enoxaparin 30 MG/0.3 ML Syringe SC (10:23)
[2020-05-18] MEDS: oxyCODONE 5 MG Tablet PO ×2 (10:24→17:24)
[2020-05-18 11:20] VITALS: BP 135/77; PULSE 73; RESP 18; TEMP 36.8; O2SAT 94
--- NOTE | 2020-05-18 11:44 | PCM.PN.HOSP ---
Patient Problems: Active and Suspected Problems (Last Reviewed 05/10/20 @ 11:[address] Hakan Okeefe, DO) CAITLIN (acute kidney injury) (Acute) Intractable nausea and vomiting (Acute) Subjective: Patient seen and examined. He had no complaints and review of systems otherwise negative. He had a good bowel movement yesterday he says that relieved abdominal cramps he was having. Cr has trended down to 3.5. Vitals/I&O's: Vital Signs Temp Pulse Resp BP Pulse Ox 97.8 F 78 18 143/75 H 95 05/18/20 06:21 05/18/20 06:21 05/18/20 06:21 05/18/20 06:21 05/18/20 06:21 Oxygen Flow Rate (L/min) 2 Oxygen Delivery Method Room Air Weight: 163 lb 12.855 oz Body Mass Index (BMI) 24.9 Intake and Output for Last 24 Hours 05/16/20 05/17/20 05/18/20 23:59 23:59 23:59 Intake Total 2958.34 / 2958.34 1640 / 1640 400 / 400 Output Total 4750 / 4750 3550 / 3550 850 / 850 Balance -1791.66 / -1791.66 -1910 / -1910 -450 / -450 General: Alert, Oriented x3, Cooperative HEENT: Atraumatic, PERRLA, EOMI, Normocephalic Neck: Supple, No JVD, Negative Carotid Bruits Lungs: Clear to auscultation, Normal air movement Cardiovascular: Regular rate, No murmurs Abdomen: Bowel Sounds Present, Soft, Non Tender Extremities: No edema, Capillary Refill Less than 3 Seconds Skin: No rashes, No breakdown Musculoskeletal: No Tenderness to Palpation of Joints or Extremities Neurological: Cranial nerves II-XII grossly intact, Neuro grossly intact, Motor Exam 5/5 strength throughout Psych/Mental Status: Normal Affect, Appropriate, Alert and oriented to time, place, person, mood and affect Laboratory Results 05/18/20 05:28: WBC 6.0, RBC 3.28 L, Hgb 9.8 L, Hct 31.3 L, MCV 95.4 H, MCH 29.9, MCHC 31.3 L, RDW Std Deviation 50.6 H, RDW Coeff of Barbara 14.6, Plt Count 241, MPV 9.5, Neut % (Auto) Not Reportable, Absolute Neuts (auto) 4.2, Absolute Lymphs (auto) 0.96, Total Counted 100, Neutrophils % (Manual) 67, Band Neutrophils % 3, Lymphocytes % (Manual) 16 L, Monocytes % (Manual) 8, Eosinophils % (Manual) 1, Metamyelocytes % 5 H, Diff Path Review July, Platelet Estimate ADEQUATE, RBC Morphology NORM C+C 05/18/20 05:28: Sodium 140, Potassium 4.7, Chloride 104, Carbon Dioxide 29.0, Anion Gap 7, BUN 40 H, Creatinine 3.50 H, Estim Creat Clear Calc 20.90, Est GFR (MDRD) Af Amer 23 L, Est GFR (MDRD) Non-Af 19 L, BUN/Creatinine Ratio 11.4, Glucose 100, Calcium 8.8 Current Medications Acetaminophen (Acetaminophen 325 Mg Tablet) 650 mg PO Q6H PRN PRN PRN Reason: Pain Score 1-10/Temp > 100.7 F Last Admin: 05/18/20 10:23 Dose: 650 mg Documented by: Aspirin (Aspirin E.C. 81 Mg Tablet) [facility] Last Admin: 05/18/20 11:08 Dose: Not Given Documented by: Calcium Carbonate (Calcium Carbonate 500 Mg Tablet) 500 mg PO Q4H PRN PRN PRN Reason: HEARTBURN Last Admin: 05/18/20 09:12 Dose: 500 mg Documented by: Enoxaparin Sodium (Enoxaparin 30 Mg/0.3 Ml Syringe) 30 mg SC DAILY [facility] Last Admin: 05/18/20 10:23 Dose: 30 mg Documented by: Fentanyl (Fentanyl 50 Mcg Patch) 50 mcg TD Q72H [facility] Last Admin: 05/17/20 17:31 Dose: 50 mcg Documented by: Lidocaine/Diphenhydr/Alum/Mg/Simeth (Bmx Liquid 180 Ml) 15 ml PO ACHS PRN PRN Reason: ORAL PAIN Last Admin: 05/11/20 17:56 Dose: 15 ml Documented by: Morphine Sulfate (Morphine 2 Mg/Ml Syringe) 2 mg IV Q3H PRN PRN PRN Reason: Pain Score 6-10 Last Admin: 05/18/20 06:22 Dose: 2 mg Documented by: Ondansetron HCl (Ondansetron 4 Mg/2 Ml Vial) 4 mg IV Q8H PRN PRN PRN Reason: NAUSEA/VOMITING Last Admin: 05/18/20 09:04 Dose: 4 mg Documented by: Oxycodone HCl (Oxycodone 5 Mg Tablet) 5 mg PO Q6H PRN PRN Reason: Pain Score 4-5 Last Admin: 05/18/20 10:24 Dose: 5 mg Documented by: Pantoprazole Sodium (Pantoprazole Sodium 40 Mg Tablet) 40 mg PO DAILY [facility] Last Admin: 05/18/20 09:12 Dose: 40 mg Documented by: Polyethylene Glycol (Polyethylene Glycol 3350 17 Gm Packet) 17 gm PO DAILY PRN PRN PRN Reason: CONSTIPATION Last Admin: 05/17/20 13:59 Dose: 17 gm Documented by: Prednisone (Prednisone 10 Mg Tablet) 10 mg PO DAILYCM [facility] Last Admin: 05/18/20 11:08 Dose: Not Given Documented by: Prochlorperazine Maleate (Prochlorperazine 5 Mg Tablet) 10 mg PO Q6H PRN PRN PRN Reason: NAUSEA Last Admin: 05/18/20 03:36 Dose: 10 mg Documented by: Senna/Docusate Sodium (Senna/Docusate Sodium 1 Tablet) 2 tablet PO BID PRN PRN PRN Reason: CONSTIPATION Last Admin: 05/17/20 21:50 Dose: 2 tablet Documented by: Sodium Chloride (0.9% Saline Lock 10 Ml Syringe) 10 - 40 ml IV UD PRN PRN Reason: SALINE FLUSH Last Admin: 05/18/20 09:04 Dose: 10 ml Documented by: Medical Necessity - Tobacco Use Smoking Status: Never smoker Assessment/Plan All Active Problems (Last Reviewed 05/10/20 @ 11:[address] Hakan Okeefe, DO) Encounter for adjustment and management of vascular access device (Acute) Encounter for education (Acute) Chemotherapy management, encounter for (Acute) Chemotherapy follow-up examination (Acute) Mucositis (ulcerative) due to antineoplastic therapy (Acute) Erectile dysfunction after radical prostatectomy (Acute) Abscess (Acute) Left lower quadrant pain (Resolved) Constipation (Acute) Stomatitis (Acute) Neutropenia, drug-induced (Acute) CAITLIN (acute kidney injury) (Acute) Intractable nausea and vomiting (Acute) #CAITLIN due to left sided hydronephrosis CR is down to 3.5 from 4.02 today renal USG showed moderate left sided hydronephrosis FeNA was also low, suggesting a pre-renal component continue gentle hydration with [facility] nephrology and urology on board. had cystoscopy with left ureteral stent placement lisinopril on hold continue trending Cr #Metastatic prostate cancer receiving chemotherapy. Has completed radiation. on prednisone mets to the lymph nodes follow up with oncology and radiation oncology on outpatient basis #HTN: Lisinopril on hold on account of CAITLIN. #Hyperlipidemia: On ezetimibe osteoarthritis: stable DVT prophylaxis: lovenox, renally dosed Disposition: for likely discharge in the next day or 2 once Cr trends down some more. Is reluctant to go home until he sees his creatinine getting closer to normal as he is worried that he may have to come back to the hospital if he is discharged to early. Inpatient E&M: 73839 Subs Hosp L2
[2020-05-18 20:19] VITALS: BP 154/75; PULSE 70; RESP 16; TEMP 36.9; O2SAT 94
[2020-05-19 05:27] VITALS: BP 150/69; PULSE 77; RESP 16; TEMP 36.9; O2SAT 93
[2020-05-19] MEDS: Acetaminophen 325 MG Tablet 650 MG PO (05:28)
[2020-05-19] MEDS: oxyCODONE 5 MG Tablet PO (05:28)
[2020-05-19 06:22] LABS: Absolute Lymphocyte Count 0.55 X10^3/uL (0.83-4.51); Absolute Neutrophil Count 4.8 X10^3/uL (2.0-7.7); Basophil# 0.03 X10^3/uL; Basophil% 0.5 % (0-1); Eosinophil# 0.01 X10^3/uL; Eosinophils% 0.2 % (0-5); Hematocrit 27.7 % (40-54); Hemoglobin 8.8 g/dL (13.0-16.5); Lymphocyte # 0.55 X10^3/ul (4.0); Lymphocyte % 8.3 % (19-41); Mean Corp Hgb Conc 31.8 g/dL (32-36); Mean Corpuscular Hgb 30.2 pg (27.0-32.0); Mean Corpuscular Volume 95.2 fL (80-94); Mean Platelet Vol. 9.6 fl (6.2-12.0); Monocyte# 0.97 X10^3/uL; Monocyte% 14.7 % (0-10); NRBC Flagged by Analyzer 0 % (0-5); Neutrophil # 4.76 X10^3/uL (2.7-7.7); Neutrophil % 71.8 % (47-70); POSITIVE DIFFERENTIAL YES; Platelet Count 197 K/mm3 (150-450); RBC Distribution Width CV 14.6 % (11.6-14.6); RBC Distribution Width SD 50.4 fl (35.1-43.9); Red Blood Count 2.91 M/mm3 (4.6-6.2); White Blood Count 6.6 K/mm3 (4.4-11.0)
[2020-05-19 06:28] LABS: Differential Indicated SCAN CRITERIA MET
[2020-05-19 06:46] LABS: Anion Gap 7 (5-15); BUN 33 mg/dL (7-18); BUN/Creat Ratio 11.6 RATIO (10-20); Calcium,Total 8.2 mg/dL (8.5-10.1); Chloride 103 mmol/L (98-107); Creatinine, Serum 2.84 mg/dL (0.70-1.30); EST Glomerular Filtration Rate 24 mL/min (>60); Est Glom Filt Rate - Afr Amer 29 mL/min (>60); Estimated Creatinine Clearance 25.76 ml/min; Glucose 93 mg/dL (74-106); Potassium 4.1 mmol/L (3.5-5.1); Sodium Level 138 mmol/L (136-145)
[2020-05-19 07:49] VITALS: BP 147/74; PULSE 71; RESP 16; TEMP 37; O2SAT 95
[2020-05-19] MEDS: Aspirin E.C. 81 MG Tablet PO (07:54)
[2020-05-19] MEDS: predniSONE 10 MG Tablet PO (07:54)
[2020-05-19] MEDS: Pantoprazole Sodium 40 MG Tablet PO (09:41)
[2020-05-19] MEDS: Enoxaparin 30 MG/0.3 ML Syringe SC (09:41)
[2020-05-19] MEDS: Ondansetron 4 MG/2 ML Vial IV (09:44)
[2020-05-19] MEDS: Morphine 2 MG/ML Syringe IV (09:44)
--- NOTE | 2020-05-19 10:38 | DCINST_ITS ---
- Discharge Diagnoses Current Active Problems: Current Active and Chronic Problems (Last Reviewed 05/10/20 @ 11:[address] 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) CAITLIN (acute kidney injury) (Acute) Intractable nausea and vomiting (Acute) You will use the following diet at home:: Regular Your food should be the consistency of: Regular Your liquids should be the consistency of: Regular/Thin Discharge Activity: No Restrictions Call your doctor if you observe: Fever of 101 or Higher, Shortness of breath, Dizziness, Fainting spells, Swelling in the ankles, Chest pain, Increased palpitations (irregular heartbeat) Instructions: Acute Kidney Failure Additional Instructions: Obtain a BMP in the next 2 to 3 days by your PCP or by nephrology as an outpatient to monitor your kidney function. You will maintain the urinary catheter in place until you follow-up with Dr. Rausch on 2 weeks. Allergies/Adverse Reactions: Allergies No Known Allergies Allergy (Verified 05/10/20 08:09) Medications to take at Discharge Dexlansoprazole [Dexilant] 60 mg PO DAILY 01/16/19 Ezetimibe [Zetia] 10 mg PO QHS 01/16/19 Leuprolide acetate [Eligard] 22.5 mg SQ X1 01/16/19 Psyllium Husk (with Sugar) [Metamucil Packet] 3.4 gm PO DAILY 01/22/19 Ondansetron [Zofran Odt] 4 mg PO Q8H PRN PRN 10 Days #30 tab 01/29/19 Prochlorperazine Maleate 10 mg PO Q6H PRN PRN 10 Days #30 tab 01/29/19 Polyethylene Glycol 3350 [Miralax] 17 gm PO DAILY 10/30/19 Fentanyl 50 mcg TOPICAL UD 01/15/20 Oxycodone 5 mg PO BID 01/15/20 Magic Mouth Wash 15 ml PO Q6H PRN PRN #300 ml 04/23/20 Aspirin [Lo-Dose Aspirin EC] 81 mg PO DAILY 04/24/20 Prednisone 10 mg PO DAILY 60 Days #60 tab 04/24/20 Naloxegol Oxalate [Movantik] 12.5 mg PO DAILY 05/10/20 Lisinopril [Zestril] 20 mg PO QHS #0 05/19/20 Primary Care Physician: Denny Carrasco DO [Primary Care Provider] - Please follow up with your Primary Care Physician in: 3-5 days Test Results: Test results from this visit will be discussed in further detail at your follow- up appointment, if applicable. Please Follow Up With: Toy Arroyo MD When: 2 weeks Please Follow Up With: Jeremiah Keith MD When: 1-2 weeks Please Follow Up With: Janusz Cuenca MD When: As scheduled
[2020-05-19 12:55] VITALS: BP 130/61; PULSE 75; RESP 18; TEMP 36.6; O2SAT 94
--- NOTE | 2020-05-19 13:39 | PCM.PN.REN ---
Patient Problems: Active and Suspected Problems (Last Reviewed 05/10/20 @ 11:[address] Hakan Okeefe, DO) CAITLIN (acute kidney injury) (Acute) Intractable nausea and vomiting (Acute) Subjective: no new events - Physical Exam Vitals/I&O's: Vital Signs Temp Pulse Resp BP Pulse Ox 97.8 F 75 18 130/61 H 94 05/19/20 12:55 05/19/20 12:55 05/19/20 12:55 05/19/20 12:55 05/19/20 12:55 Oxygen Flow Rate (L/min) 2 Oxygen Delivery Method Room Air Weight: 74.3 kg Body Mass Index (BMI) 24.9 Intake and Output for Last 24 Hours 05/17/20 05/18/20 05/19/20 23:59 23:59 23:59 Intake Total 1640 / 1640 1260 / 1260 850 / 850 Output Total 3550 / 3550 2700 / 2700 1999 / 1999 Balance -1910 / -1910 -1440 / -1440 -1150 / -1150 General: Alert, Oriented x3, Cooperative HEENT: Atraumatic, PERRLA, EOMI, Normocephalic Neck: Supple, No JVD, Negative Carotid Bruits Lungs: Clear to auscultation, Normal air movement Cardiovascular: Regular rate, No murmurs Abdomen: Bowel Sounds Present, Soft, Non Tender Extremities: No edema, Capillary Refill Less than 3 Seconds Skin: No rashes, No breakdown Musculoskeletal: No Tenderness to Palpation of Joints or Extremities Neurological: Cranial nerves II-XII grossly intact Psych/Mental Status: Normal Affect, Appropriate Laboratory Results 05/19/20 06:09: WBC 6.6, RBC 2.91 L, Hgb 8.8 L, Hct 27.7 L, MCV 95.2 H, MCH 30.2, MCHC 31.8 L, RDW Std Deviation 50.4 H, RDW Coeff of Barbara 14.6, Plt Count 197, MPV 9.6, Immature Gran % (Auto) 4.500 H, Neut % (Auto) 71.8 H, Lymph % (Auto) 8.3 L, [place] % (Auto) 14.7 H, Eos % (Auto) 0.2, Baso % (Auto) 0.5, Absolute Neuts (auto) 4.8, Absolute Lymphs (auto) 0.55 L, Nucleated RBC % 0 05/19/20 06:09: Sodium 138, Potassium 4.1, Chloride 103, Carbon Dioxide 28.0, Anion Gap 7, BUN 33 H, Creatinine 2.84 H, Estim Creat Clear Calc 25.76, Est GFR (MDRD) Af Amer 29 L, Est GFR (MDRD) Non-Af 24 L, BUN/Creatinine Ratio 11.6, Glucose 93, Calcium 8.2 L Current Medications Acetaminophen (Acetaminophen 325 Mg Tablet) 650 mg PO Q6H PRN PRN PRN Reason: Pain Score 1-10/Temp > 100.7 F Last Admin: 05/19/20 05:28 Dose: 650 mg Documented by: Aspirin (Aspirin E.C. 81 Mg Tablet) [facility] Last Admin: 05/19/20 07:54 Dose: 81 mg Documented by: Calcium Carbonate (Calcium Carbonate 500 Mg Tablet) 500 mg PO Q4H PRN PRN PRN Reason: HEARTBURN Last Admin: 05/18/20 09:12 Dose: 500 mg Documented by: Enoxaparin Sodium (Enoxaparin 30 Mg/0.3 Ml Syringe) 30 mg SC DAILY [facility] Last Admin: 05/19/20 09:41 Dose: 30 mg Documented by: Fentanyl (Fentanyl 50 Mcg Patch) 50 mcg TD Q72H [facility] Last Admin: 05/17/20 17:31 Dose: 50 mcg Documented by: Lidocaine/Diphenhydr/Alum/Mg/Simeth (Bmx Liquid 180 Ml) 15 ml PO ACHS PRN PRN Reason: ORAL PAIN Last Admin: 05/11/20 17:56 Dose: 15 ml Documented by: Morphine Sulfate (Morphine 2 Mg/Ml Syringe) 2 mg IV Q3H PRN PRN PRN Reason: Pain Score 6-10 Last Admin: 05/19/20 09:44 Dose: 2 mg Documented by: Ondansetron HCl (Ondansetron 4 Mg/2 Ml Vial) 4 mg IV Q8H PRN PRN PRN Reason: NAUSEA/VOMITING Last Admin: 05/19/20 09:44 Dose: 4 mg Documented by: Oxycodone HCl (Oxycodone 5 Mg Tablet) 5 mg PO Q6H PRN PRN Reason: Pain Score 4-5 Last Admin: 05/19/20 05:28 Dose: 5 mg Documented by: Pantoprazole Sodium (Pantoprazole Sodium 40 Mg Tablet) 40 mg PO DAILY [facility] Last Admin: 05/19/20 09:41 Dose: 40 mg Documented by: Polyethylene Glycol (Polyethylene Glycol 3350 17 Gm Packet) 17 gm PO DAILY PRN PRN PRN Reason: CONSTIPATION Last Admin: 05/17/20 13:59 Dose: 17 gm Documented by: Prednisone (Prednisone 10 Mg Tablet) 10 mg PO DAILYCM [facility] Last Admin: 05/19/20 07:54 Dose: 10 mg Documented by: Prochlorperazine Maleate (Prochlorperazine 5 Mg Tablet) 10 mg PO Q6H PRN PRN PRN Reason: NAUSEA Last Admin: 05/18/20 03:36 Dose: 10 mg Documented by: Senna/Docusate Sodium (Senna/Docusate Sodium 1 Tablet) 2 tablet PO BID PRN PRN PRN Reason: CONSTIPATION Last Admin: 05/17/20 21:50 Dose: 2 tablet Documented by: Sodium Chloride (0.9% Saline Lock 10 Ml Syringe) 10 - 40 ml IV UD PRN PRN Reason: SALINE FLUSH Last Admin: 05/18/20 20:24 Dose: 10 ml Documented by: Medical Necessity - Tobacco Use Smoking Status: Never smoker Assessment/Plan All Active Problems (Last Reviewed 05/10/20 @ 11:[address] Hakan Okeefe, DO) Encounter for adjustment and management of vascular access device (Acute) Encounter for education (Acute) Chemotherapy management, encounter for (Acute) Chemotherapy follow-up examination (Acute) Mucositis (ulcerative) due to antineoplastic therapy (Acute) Erectile dysfunction after radical prostatectomy (Acute) Abscess (Acute) Left lower quadrant pain (Resolved) Constipation (Acute) Stomatitis (Acute) Neutropenia, drug-induced (Acute) CAITLIN (acute kidney injury) (Acute) Intractable nausea and vomiting (Acute) 1- Acute kidney injury . Cr was 0.8 mg/dl in Mar 2020 CAITLIN is likely post renal obstruction . hyman cath placement attempt on 05/13/20 failed. renal US showed Left side hydronephrosis s/p cystoscopy with L ureter stent placement with hyman cath placement 05/15 Cr is better good urine output 2- Left side hydronephrosis. urology service is on consult s/p cystoscopy with L ureter stent placement with hyman cath placement 05/15 Urology service is following 3- metabolic acidosis. from NS and CAITLIN resolved.
--- NOTE | 2020-05-19 13:55 | PCM.DC.SUM ---
Discharge Date and Diagnosis - Problem List Patient Problems: Active and Suspected Problems (Last Reviewed 05/10/20 @ 11:[address] Hakan Okeefe DO) CAITLIN (acute kidney injury) (Acute) Intractable nausea and vomiting (Acute) Date of Admission: 05/10/20 Date of Discharge: 05/19/20 - Primary Discharge Diagnosis Acute Problems: Active Problems (Last Reviewed 05/10/20 @ 11:[address] Hakan Okeefe DO) CAITLIN (acute kidney injury) (Acute) Intractable nausea and vomiting (Acute) - Secondary Discharge Diagnosis Chronic Problems: Chronic Problems (Last Reviewed 05/10/20 @ 11:[address] 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 Electronically Signed: Adam Pacheco MD ([place]) at 14:47 EST , Service support , Renal Ultrasound 05/11/20 07:48 IMPRESSION: Right renal cysts. Moderate degree of left hydronephrosis. Electronically Signed: Siva Dale MD at 9:05 EST , Service support , Report of Operation Date of Procedure: 05/15/20 Pre-Operative Diagnosis: Left hydronephrosis, history of prostate cancer history of prior radiation and prostatectomy Post-Operative Diagnosis: Same Surgery/Procedure Performed:: Cystoscopy, left retrograde pyelogram interpretation fluoroscopic images, left stent placement Consults: Urology Nephrology Operations: None Procedures: None Summary of Care Provided: Per HPI: The patient is a 64 year old M presents with several days of intractable nausea and vomiting. Patient has been unable to take any thing orally and when he does he immediately throws it up. I just been progressively weak during this time and presented to the emergency room. Patient's creatinine was noted to be 3.96 and had a baseline creatinine from March of this year of 1.03. Patient also just feels very weak overall. Is not having diarrhea but does have constipation but did have a bowel movement earlier this week. Patient has opiate-induced constipation related with his narcotics. He denies any fever chills denies any contacts with COVID-19. Hospital Course: 1. CAITLIN secondary to left-sided hydronephrosis/metastatic prostate [id number] male with history of metastatic prostate cancer status post radiation and currently undergoing chemotherapy presented with several days of intractable nausea and vomiting. He was found to have acute renal failure, his baseline creatinine was around 1 and when he presented his creatinine was 3.96 and peaked to 4.43. 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 This is likely the cause of his obstructive nephropathy. Now with the Rodas in place his creatinine has been improving significantly. I did discuss with him that it will likely take a couple weeks for his creatinine to resolve completely. He will be discharged today with his Rodas in place. He will need to follow-up with urology in 2 weeks, and he will need to follow-up with nephrology in 1 to 2 weeks. At this time, will continue to hold his lisinopril pending evaluation by nephrology and can likely be restarted once his creatinine is more improved and stable. He will also need to follow-up with his oncologist to resume chemotherapy. He is feeling much better today. I discussed with him the plan for discharge and he expressed understanding of this and benefits of going home and would like to go home today. 2. Narcotic induced constipation, hypertension, hyperlipidemia, osteoarthritis Patient Problems: Active and Suspected Problems (Last Reviewed 05/10/20 @ 11:[address] Hakan Okeefe, DO) CAITLIN (acute kidney injury) (Acute) Intractable nausea and vomiting (Acute) - Physical Exam Vitals/I&O's: Vital Signs Temp Pulse Resp BP Pulse Ox 97.8 F 75 18 130/61 H 94 05/19/20 12:55 05/19/20 12:55 05/19/20 12:55 05/19/20 12:55 05/19/20 12:55 Oxygen Flow Rate (L/min) 2 Oxygen Delivery Method Room Air Weight: 163 lb 12.855 oz Body Mass Index (BMI) 24.9 Intake and Output for Last 24 Hours 05/17/20 05/18/20 05/19/20 23:59 23:59 23:59 Intake Total 1640 / 1640 1260 / 1260 850 / 850 Output Total 3550 / 3550 2700 / 2700 1999 Balance -1910 / -1910 -1440 / -1440 -1150 / -1150 General: Alert, Oriented x3, Cooperative, No apparent distress HEENT: Atraumatic, PERRLA, EOMI, Normocephalic Oral: Moist Mucosa Neck: Supple, No JVD Lungs: Clear to auscultation, Normal air movement, No rhonchi, No wheeze, No rales Cardiovascular: Regular rate, Regular Rhythm, Normal S1, Normal S2, No murmurs Abdomen: Soft, Non Tender, Non-Distended, No Hepato-splenomegaly, - - Rodas in place Extremities: No edema, Capillary Refill Less than 3 Seconds Skin: No rashes, No breakdown Neurological: Neuro grossly intact, Sensory exam intact to light touch and pain Psych/Mental Status: Normal Affect, Appropriate Laboratory Results 05/19/20 06:09: WBC 6.6, RBC 2.91 L, Hgb 8.8 L, Hct 27.7 L, MCV 95.2 H, MCH 30.2, MCHC 31.8 L, RDW Std Deviation 50.4 H, RDW Coeff of Barbara 14.6, Plt Count 197, MPV 9.6, Immature Gran % (Auto) 4.500 H, Neut % (Auto) 71.8 H, Lymph % (Auto) 8.3 L, [place] % (Auto) 14.7 H, Eos % (Auto) 0.2, Baso % (Auto) 0.5, Absolute Neuts (auto) 4.8, Absolute Lymphs (auto) 0.55 L, Nucleated RBC % 0 05/19/20 06:09: Sodium 138, Potassium 4.1, Chloride 103, Carbon Dioxide 28.0, Anion Gap 7, BUN 33 H, Creatinine 2.84 H, Estim Creat Clear Calc 25.76, Est GFR (MDRD) Af Amer 29 L, Est GFR (MDRD) Non-Af 24 L, BUN/Creatinine Ratio 11.6, Glucose 93, Calcium 8.2 L Current Medications Acetaminophen (Acetaminophen 325 Mg Tablet) 650 mg PO Q6H PRN PRN PRN Reason: Pain Score 1-10/Temp > 100.7 F Last Admin: 05/19/20 05:28 Dose: 650 mg Documented by: Aspirin (Aspirin E.C. 81 Mg Tablet) [facility] Last Admin: 05/19/20 07:54 Dose: 81 mg Documented by: Calcium Carbonate (Calcium Carbonate 500 Mg Tablet) 500 mg PO Q4H PRN PRN PRN Reason: HEARTBURN Last Admin: 05/18/20 09:12 Dose: 500 mg Documented by: Enoxaparin Sodium (Enoxaparin 30 Mg/0.3 Ml Syringe) 30 mg SC DAILY COUNTS INCLUDE 234 BEDS AT [facility] Last Admin: 05/19/20 09:41 Dose: 30 mg Documented by: Fentanyl (Fentanyl 50 Mcg Patch) 50 mcg TD Q72H COUNTS INCLUDE 234 BEDS AT THE [facility] Last Admin: 05/17/20 17:31 Dose: 50 mcg Documented by: Lidocaine/Diphenhydr/Alum/Mg/Simeth (Bmx Liquid 180 Ml) 15 ml PO ACHS PRN PRN Reason: ORAL PAIN Last Admin: 05/11/20 17:56 Dose: 15 ml Documented by: Morphine Sulfate (Morphine 2 Mg/Ml Syringe) 2 mg IV Q3H PRN PRN PRN Reason: Pain Score 6-10 Last Admin: 05/19/20 09:44 Dose: 2 mg Documented by: Ondansetron HCl (Ondansetron 4 Mg/2 Ml Vial) 4 mg IV Q8H PRN PRN PRN Reason: NAUSEA/VOMITING Last Admin: 05/19/20 09:44 Dose: 4 mg Documented by: Oxycodone HCl (Oxycodone 5 Mg Tablet) 5 mg PO Q6H PRN PRN Reason: Pain Score 4-5 Last Admin: 05/19/20 05:28 Dose: 5 mg Documented by: Pantoprazole Sodium (Pantoprazole Sodium 40 Mg Tablet) 40 mg PO DAILY COUNTS INCLUDE 234 BEDS AT [facility] Last Admin: 05/19/20 09:41 Dose: 40 mg Documented by: Polyethylene Glycol (Polyethylene Glycol 3350 17 Gm Packet) 17 gm PO DAILY PRN PRN PRN Reason: CONSTIPATION Last Admin: 05/17/20 13:59 Dose: 17 gm Documented by: Prednisone (Pred[facility] 10 Mg Tablet) [facility] Last Admin: 05/19/20 07:54 Dose: 10 mg Documented by: Prochlorperazine Maleate (Prochlorperazine 5 Mg Tablet) 10 mg PO Q6H PRN PRN PRN Reason: NAUSEA Last Admin: 05/18/20 03:36 Dose: 10 mg Documented by: Senna/Docusate Sodium (Senna/Docusate Sodium 1 Tablet) 2 tablet PO BID PRN PRN PRN Reason: CONSTIPATION Last Admin: 05/17/20 21:50 Dose: 2 tablet Documented by: Sodium Chloride (0.9% Saline Lock 10 Ml Syringe) 10 - 40 ml IV UD PRN PRN Reason: SALINE FLUSH Last Admin: 05/18/20 20:24 Dose: 10 ml Documented by: Discharge Activity: No Restrictions Call your doctor if you observe: Fever of 101 or Higher, Shortness of breath, Dizziness, Fainting spells, Swelling in the ankles, Chest pain, Increased palpitations (irregular heartbeat) Home Medications: Medications to take at Discharge Dexlansoprazole [Dexilant] 60 mg PO DAILY 01/16/19 Ezetimibe [Zetia] 10 mg PO QHS 01/16/19 Leuprolide acetate [Eligard] 22.5 mg SQ X1 01/16/19 Psyllium Husk (with Sugar) [Metamucil Packet] 3.4 gm PO DAILY 01/22/19 Ondansetron [Zofran Odt] 4 mg PO Q8H PRN PRN 10 Days #30 tab 01/29/19 Prochlorperazine Maleate 10 mg PO Q6H PRN PRN 10 Days #30 tab 01/29/19 Polyethylene Glycol 3350 [Miralax] 17 gm PO DAILY 10/30/19 Fentanyl 50 mcg TOPICAL UD 01/15/20 Oxycodone 5 mg PO BID 01/15/20 Magic Mouth Wash 15 ml PO Q6H PRN PRN #300 ml 04/23/20 Aspirin [Lo-Dose Aspirin EC] 81 mg PO DAILY 04/24/20 Prednisone 10 mg PO DAILY 60 Days #60 tab 04/24/20 Naloxegol Oxalate [Movantik] 12.5 mg PO DAILY 05/10/20 Lisinopril [Zestril] 20 mg PO QHS #0 05/19/20 Primary Care Physician: Denny Carrasco DO [Primary Care Provider] - Please follow up with your Primary Care Physician in: 3-5 days Please Follow Up With: Toy Arroyo MD When: 2 weeks Please Follow Up With: Jeremiah Keith MD When: TUESDAY Please Follow Up With: Janusz Cuenca MD When: As scheduled Please Follow Up With: Jessica Calderón NP, CLERK [employer]RIER-C When: TUESDAY Patient Instructions: Acute Kidney Failure Disposition: Home Minutes spent on discharge:: 35 Patient Condition:: Stable Medical Necessity - Tobacco Use Smoking Status: Never smoker Meaningful Use Info Meaningful Use Diagnoses (Choose all that apply): None applicable Inpatient E&M: 03008 [facility]
--- NOTE | 2020-05-19 14:09 | CHAPLAIN ---
Type of Pastoral Visit ___ Initial Visit _x__ Follow-up Visit ___ On-call Visit ___ General Patient Visit ___ Spiritual Assessment ___ Family Conference ___ Bereavement ___ Rapid Response ___ Code Blue ___ Other (describe below) Pastoral Care Referral From ___ Patient _x__ Family ___ Nurse ___ Physician ___ Cushion Maker Hand ___ Integrated Campaign Manager ___ Other (describe below) Sacrament/Intervention _x__ Active listening ___ Anointing ___ Restorationist ___ Bereavement ___ Communion ___ Christal exploration ___ _x__ Life review _x__ Prayer ___ Reconciliation ___ Sacrament of Sick _x__ Supportive presence ___ Wedding ___ Other (describe below) Pastoral Comments
[2020-05-19 14:44] LABS: Pathologist Review Reviewed
[2020-05-19 14:45] LABS: Pathologist Review Reviewed
[2020-05-19 16:50] VITALS: BP 148/77; PULSE 67; RESP 18; TEMP 37.1; O2SAT 94
--- NOTE | 2020-05-20 12:19 | CASEMGMT ---
RN CM DC PHONE CALL DC DATE: 05/19/20 DC DISPOSITION: Home DC DIAGNOSIS: CAITLIN, nausea, vomiting. LACE/STRATA: 31/05 F/U APPTS MADE PRIOR TO DC: yes Attempted call to patient. No answer, but message left with call back information if patient has questions re: prescriptions, follow up or instructions. Messaging had name identifier. Radha PRAKASHN RN ACM
== END 2020-05-19 16:50 | disposition home or self-care (01) | DRG 660 ==
LOC: ED 08:40 → MS3 19:10
PROVIDERS: Anesthesiology; Student in an Organized Health Care Education/Training Program; Urology; Emergency Provider Emergency Medicine; PCP Preventive Medicine Occupational Medicine; Visit Provider Family Medicine
PROC: 0T778DZ Dilation of Left Ureter with Intraluminal Device, Via Natural or Artificial Opening Endoscopic (ICD-10-PCS; principal; 2020-05-15 12:20)
DX: N17.0 Acute kidney failure with tubular necrosis (principal); C77.2 Secondary and unspecified malignant neoplasm of intra-abdominal lymph nodes; E87.2 Acidosis; C61 Malignant neoplasm of prostate; N13.30 Unspecified hydronephrosis; Z85.46 Personal history of malignant neoplasm of prostate; Z92.3 Personal history of irradiation; R11.2 Nausea with vomiting, unspecified; I10 Essential (primary) hypertension; M19.90 Unspecified osteoarthritis, unspecified site; D64.9 Anemia, unspecified; E78.5 Hyperlipidemia, unspecified; K59.03 Drug induced constipation; T40.605A Adverse effect of unspecified narcotics, initial encounter; Z79.899 Other long term (current) drug therapy
CPT/HCPCS: 36415; 74022; 76000; 76770; 80048; 80053; 81001; 82570; 82607; 82728; 82747; 83540; 83550; 83690; 84300; 85014; 85025; 85610; 85730; 87426; 93005; 97803; 99284; J7030; J7120; A4216; C1769; J2405

== ENCOUNTER 2020-05-30 19:44 | Inpatient (IN) | payer BC, SELFPAY ==
[2020-04-14 13:58] VITALS: BMI 24.7
[2020-05-15 12:12] VITALS: BMI 24.9
[2020-05-30 19:45] VITALS: BP 131/68; PULSE 79; RESP 16; TEMP 36.1; O2SAT 96; BMI 23.1
--- NOTE | 2020-05-30 20:15 | EKG12_ITS ---
Test Reason : VOMITTING Blood Pressure : / mmHG Vent. Rate : 072 BPM Atrial Rate : 072 BPM P-R Int : 140 ms QRS Dur : 092 ms QT Int : 376 ms P-R-T Axes : 067 046 027 degrees QTc Int : 411 ms Normal sinus rhythm Normal ECG Confirmed by ARTURO COBOS, AMPARO ([id number]), commercial production editor KIKO CROSS ([id number]) on 06/02/2020 10:57:12 A M Referred By: TERRY Confirmed By:JAMES MORRIS MD
--- NOTE | 2020-05-30 20:24 | ED.DCSUM_ITS ---
History of Present Illness Chief Complaint: Nausea/Vomiting/Diarrhea Informant: Patient, Significant Other Narrative: Patient is a 64-year-old male with history of metastatic prostate cancer as well as recent history of CAITLIN secondary to obstructive uropathy and dehydration presenting with concerns for recurrent dehydration. Patient last 1 under radiation for aortic lymphadenopathy April 21 of the . He is last had chemotherapy on April 29. He was admitted May 10 through May 19 for CAITLIN and obstructive uropathy. Dr. Kohli placed a stent at that time. He did have urinary retention and a Valdez catheter was placed as well. Patient was doing well his first week discharge from the hospital but the past 3 days to decreased oral intake. He states he does has not felt like drinking much. states he is only had about 16 ounces of fluids today. He has had associated nausea and taking Zofran. Patient had 2 episodes of vomiting today. She also notes has had decreased urine output in his Valdez bag and is only had about 350 cc of urine out today. Patient notes he has some mild crampy abdominal discomfort but denies any other complaints. He states his vomit was just bile. Fever or chills. No associated chest pain or difficulty breathing. No other complaints at this time. Past Medical History - Allergies and Home Meds Allergies/Adverse Reactions: Allergies No Known Allergies Allergy (Verified 05/30/20 19:45) Past Medical History: - - Prostate cancer with metastasis, osteoarthritis, CKD, hyperlipidemia, hypertension, GERD, history of diverticulitis Surgical History: - - Tonsillectomy, radical prostatectomy, left ureter stent Lives: Spouse/ Significant Other Smoking Status: Former smoker Review of Systems General: Reports: Malaise. Denies: Chills, Fever, Sweats Eyes: Denies: Visual changes - bilaterally, Diplopia ENT: Denies: Rhinorrhea, Sore throat Cardiovascular: Denies: Chest pain, Palpitations Respiratory: Denies: Dyspnea, Cough, Dyspnea on exertion Gastrointestinal: Reports: Abdominal pain, Nausea, Vomiting. Denies: Diarrhea, Melena, Hematochezia Genitourinary: Reports: - - Decreased frequency of urination. Denies: Dysuria, Hematuria, Frequency Musculoskeletal: Denies: Back pain, Extremity Pain Skin: Denies: Rash, Wounds Neurological: Denies: Headache, Weakness, Numbness Physical Exam Vital Signs/Narrative: Vital Signs Temp Pulse Resp BP Pulse Ox 05/30/20 19:45 96.9 F L 79 16 131/68 H 96 Inital Vital Signs reviewed: Yes General: Well nourished, Well developed, No Acute Distress Head: Normocephalic, Atraumatic Eyes: Perrl, EOMI ENT: Moist mucous membranes, No rhinorrhea Neck: Supple, Nontender Cardiovascular: Regular rate, Regular rhythm, No murmurs Respiratory: No distress, CTA bilaterally, Chest nontender Abdomen: Soft, Nontender, Nondistended, Normal bowel sounds. Negative for: Guarding, Rebound tenderness, Pulsatile mass Back: Nontender, Normal Inspection. Negative for: CVA tenderness Extremities: Nontender, No edema Skin: Normal color, No rash Neurological: Alert, Oriented x3, Cranial nerves II-XII grossly intact, Normal Strength, Normal Sensation Psychological: Normal affect, Normal Mood Diagnostic/Tx/Re-eval Clinical Impression(s) from Imaging Studies Abdomen/Pelvis CT 05/30/20 21:26 IMPRESSION: Bilateral moderate hydronephrosis. This is new hydronephrosis of the right kidney. Increased hydronephrosis of the left kidney despite the presence of a left ureteral stent appearing to be in good position. Bulky retroperitoneal adenopathy of the abdomen and upper pelvis surrounds the left ureter containing the stent and probably surrounds the right ureter. Small volume urinary bladder decompressed with VALDEZ catheter. The retroperitoneal adenopathy is similar in degree to the prior exam, less well-defined secondary to absence of intravenous contrast on the current exam. New small right pleural effusion and bibasilar atelectasis. Generalized anasarca. No acute bowel findings. Unremarkable liver spleen and pancreas with a nondistended gallbladder. Electronically Signed: Joann Putnam MD at 22:51 EST , Service support , Laboratory Data 05/30/20 05/30/20 05/30/20 20:38 20:38 20:38 WBC 8.1 RBC 2.87 L Hgb 8.8 L Hct 26.8 L MCV 93.4 MCH 30.7 MCHC 32.8 RDW Std Deviation 49.7 H RDW Coeff of Barbara 14.8 H Plt Count 234 MPV 9.8 Immature Gran % (Auto) 1.100 H Neut % (Auto) 86.0 H Lymph % (Auto) 3.4 L [place] % (Auto) 9.2 Eos % (Auto) 0.1 Baso % (Auto) 0.2 Absolute Neuts (auto) 7.0 Absolute Lymphs (auto) 0.28 L Nucleated RBC % 0 Differential Comment SCANNED Sodium 127 L Potassium 5.5 H Chloride 90 L Carbon Dioxide 21.0 Anion Gap 16 H BUN 83 H Creatinine 7.53 H* Estim Creat Clear Calc 9.71 Est GFR (MDRD) Af Amer 9 L Est GFR (MDRD) Non-Af 8 L BUN/Creatinine Ratio 11.0 Glucose 67 L Calcium 8.5 Magnesium 2.1 Total Bilirubin 0.50 AST 27 ALT 11 L Alkaline Phosphatase 53 Troponin I < 0.015 Total Protein 7.2 Albumin 2.8 L Globulin 4.4 H Albumin/Globulin Ratio 0.6 L Lipase 31 L Urine Color Urine Clarity Urine pH Ur Specific [place] Urine Protein Urine Glucose (UA) Urine Ketones Urine Occult Blood Urine Nitrite Urine Bilirubin Urine Urobilinogen Ur Leukocyte Esterase Urine RBC Urine WBC Ur Squamous Epith Cells Urine Bacteria Urine Mucus 05/30/20 22:20 WBC RBC Hgb Hct MCV MCH MCHC RDW Std Deviation RDW Coeff of [place] Plt Count MPV Immature Gran % (Auto) Neut % (Auto) Lymph % (Auto) [place] % (Auto) Eos % (Auto) Baso % (Auto) Absolute Neuts (auto) Absolute Lymphs (auto) Nucleated RBC % Differential Comment Sodium Potassium Chloride Carbon Dioxide Anion Gap BUN Creatinine Estim Creat Clear Calc Est GFR (MDRD) Af Amer Est GFR (MDRD) Non-Af BUN/Creatinine Ratio Glucose Calcium Magnesium Total Bilirubin AST ALT Alkaline Phosphatase Troponin I Total Protein Albumin Globulin Albumin/Globulin Ratio Lipase Urine Color SEE COMMENT BELOW Urine Clarity Clear Urine pH 6.0 Ur Specific [place] 1.010 Urine Protein 100 H Urine Glucose (UA) Normal Urine Ketones 5 H Urine Occult Blood 250 H Urine Nitrite Negative Urine Bilirubin Negative Urine Urobilinogen Normal Ur Leukocyte Esterase 500 H Urine RBC 5-10 SEEN Urine WBC 0-5 SEEN Ur Squamous Epith Cells 0 SEEN Urine Bacteria 0 SEEN Urine Mucus 0 SEEN - Rhythm Strip Rhythm Strip: Sinus Rhythm Rate: 72 Ectopy: None - EKG Initial EKG Interpretation: Sinus Rhythm, - - Normal sinus rhythm and rate of 72 Normal axis Normal intervals Normal ST segments - Medical Decision Making Evaluated for concern of dehydration. He has decreased oral intake and decreased urine output and his Valdez catheter. Patient was treated for CAITLIN as well as obstructive uropathy 3 weeks ago and discharged from the hospital less than 2 weeks ago. Patient is given IV fluids in the ER.Patient does have anemia of 8.8 which appears to be chronic. He does not require transfusion. He had significantly elevated creatinine of 7.53 with a potassium of 5.5 however it is moderately hemolyzed. Patient does not have EKG changes consistent with hyperkalemia. Because of his degree of CAITLIN I did give him insulin, D5 and calcium gluconate for cardioprotection. Patient does have a mild hyponatremia of 127 which is also acute. Urinalysis shows leukoesterase but no bacteria. S uspect is more reactive from his stent. Urine culture sent however he is not started on antibiotics. Given his significantly worsening CAITLIN, I did repeat CT of the abdomen pelvis without contrast. This shows worsening hydronephrosis of both kidneys. Case is discussed with his urologist, Dr. Arroyo, would like the patient mid to medicine and kept n.p.o. as he will plan on taking the patient to surgery in the morning for stent placement and to relieve his obstruction. Patient is admitted to hospitalist, Dr. Bates. Patient agreeable with plan of care. ED Disposition - Plan for ED Patient: Disposition: Acute Care Hospital [facility] Diagnosis: CAITLIN (acute kidney injury), Bilateral hydronephrosis, Hyponatremia
[2020-05-30] MEDS: Ondansetron 4 MG/2 ML Vial IV (20:37)
[2020-05-30] MEDS: 0.9% Normal Saline 1,000 ML 1000 ML IV (20:37)
[2020-05-30 20:50] LABS: Absolute Lymphocyte Count 0.28 X10^3/uL (0.83-4.51); Basophil# 0.02 X10^3/uL; Basophil% 0.2 % (0-1); Eosinophil# 0.01 X10^3/uL; Eosinophils% 0.1 % (0-5); Hematocrit 26.8 % (40-54); Hemoglobin 8.8 g/dL (13.0-16.5); Lymphocyte # 0.28 X10^3/ul (4.0); Lymphocyte % 3.4 % (19-41); Mean Corp Hgb Conc 32.8 g/dL (32-36); Mean Corpuscular Hgb 30.7 pg (27.0-32.0); Mean Corpuscular Volume 93.4 fL (80-94); Mean Platelet Vol. 9.8 fl (6.2-12.0); Monocyte# 0.75 X10^3/uL; Monocyte% 9.2 % (0-10); NRBC Flagged by Analyzer 0 % (0-5); Neutrophil # 6.97 X10^3/uL (2.7-7.7); POSITIVE DIFFERENTIAL YES; Platelet Count 234 K/mm3 (150-450); RBC Distribution Width CV 14.8 % (11.6-14.6); RBC Distribution Width SD 49.7 fl (35.1-43.9); Red Blood Count 2.87 M/mm3 (4.6-6.2); White Blood Count 8.1 K/mm3 (4.4-11.0)
[2020-05-30 21:07] LABS: Differential Indicated SCAN CRITERIA MET
[2020-05-30 21:23] LABS: ALB/GLOB Ratio 0.6 RATIO (0.9-2.4); AST(SGOT) 27 U/L (15-37); Alanine Aminotransfer ALT/SGPT 11 U/L (16-61); Albumin, Serum 2.8 g/dL (3.2-5.0); Alkaline Phosphatase 53 U/L (45-117); Anion Gap 16 (5-15); BUN 83 mg/dL (7-18); Calcium,Total 8.5 mg/dL (8.5-10.1); Chloride 90 mmol/L (98-107); Creatinine, Serum 7.53 mg/dL (0.70-1.30); EST Glomerular Filtration Rate 8 mL/min (>60); Est Glom Filt Rate - Afr Amer 9 mL/min (>60); Estimated Creatinine Clearance 9.71 ml/min; Globulin 4.4 g/dL (2.2-4.2); Glucose 67 mg/dL (74-106); Lipase 31 U/L (73-393); Potassium 5.5 mmol/L (3.5-5.1); Protein, Total 7.2 g/dL (6.4-8.2); Sodium Level 127 mmol/L (136-145)
--- NOTE | 2020-05-30 21:26 | CT_ITS ---
STUDY: CT ABDOMEN AND PELVIS WITHOUT CONTRAST REASON FOR EXAM: Male, 64 years old. renal failure RADIATION DOSAGE (If Supplied By Facility): CTDIvol = ( 11.28 ) mGy, DLP = ( 614.54 ) mGycm TECHNIQUE: Transaxial images were obtained from the dome of the diaphragm to the symphysis pubis without oral contrast, and without intravenous contrast. Sagittal and coronal images were reconstructed. Individualized dose optimization techniques were used for this CT. COMPARISON: Prior abdomen and pelvic CT exam of 04/17/2019 FINDINGS: Small dependent right pleural effusion and dependent atelectasis of the right lower lobe. Minimal atelectatic changes at the dependent left lung base. The visualized portions of the heart are within normal limits. Normal liver. Contracted gallbladder. Normal spleen. Normal pancreas. Normal bilateral adrenal glands. Moderate hydronephrosis of the right kidney and a dilated ureter to the level of S1. Moderate persistent hydronephrosis of the left kidney despite the presence of a left ureteral stent which terminates in the central renal collecting system and in the lumen of a nondistended urinary bladder. Nondistended stomach. Normal small intestine. Normal appendix. Stool-filled normal colon. There is diffuse atherosclerotic calcification of the abdominal aorta, without a demonstrated aneurysm. March retroperitoneal adenopathy of the abdomen and upper pelvis similar in size to the prior exam. The adenopathy surrounds the left ureteral stent. And likely the right ureter at the level of S1. Small volume decompressed urinary bladder with VALDEZ catheter present. Generalized anasarca. Stable degenerative changes of the lumbar spine. CT/Abdomen/Pelvis without Cont IMPRESSION: Bilateral moderate hydronephrosis. This is new hydronephrosis of the right kidney. Increased hydronephrosis of the left kidney despite the presence of a left ureteral stent appearing to be in good position. Bulky retroperitoneal adenopathy of the abdomen and upper pelvis surrounds the left ureter containing the stent and probably surrounds the right ureter. Small volume urinary bladder decompressed with VALDEZ catheter. The retroperitoneal adenopathy is similar in degree to the prior exam, less well-defined secondary to absence of intravenous contrast on the current exam. New small right pleural effusion and bibasilar atelectasis. Generalized anasarca. No acute bowel findings. Unremarkable liver spleen and pancreas with a nondistended gallbladder. Electronically Signed: Joann Putnam MD at 22:51 EST , Service support ,
[2020-05-30 21:44] VITALS: BP 153/74; PULSE 83; RESP 16; O2SAT 97
[2020-05-30 22:02] LABS: Differential Comment SCANNED
[2020-05-30] MEDS: Dextrose 50%-Water 25 GM/50 ML DISP.SYRIN IV (22:07)
[2020-05-30] MEDS: Insulin Lispro 5 UNIT in Syringe 0 ML 3 UNIT IV (22:09)
[2020-05-30] MEDS: Calcium Gluconate 1 GM/10 ML Vial IV (22:09)
[2020-05-30 22:25] LABS: Bacteria 0 SEEN /hpf (None Seen); Mucous, Urine 0 SEEN /hpf (<or=2+); Squamous Epithelial Cells - UA 0 SEEN /hpf (0-5)
[2020-05-30 22:29] LABS: Color, Urine SEE COMMENT BELOW (Yellow); Glucose, Dipstick Normal (Normal); Ketone-Dipstick 5 mg/dl (Negative); Leukocyte Esterase-Dipstick 500 /ul (Negative); Nitrite-Dipstick Negative (Negative); Occult Blood-Urine 250 /ul (Negative); Protein-Dipstick 100 mg/dl (Negative); Urine Bilirubin Dipstick Negative (Negative); Urine Clarity Clear (Clear); Urine Urobilinogen Normal (Normal)
[2020-05-30 22:39] LABS: Red Blood Cells-Urine 5-10 SEEN /hpf (0-5); White Blood Cells 0-5 SEEN /hpf (0-5)
--- NOTE | 2020-05-30 23:24 | PCM.HP.STD ---
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 (7) Erectile dysfunction after radical prostatectomy Status: Chronic (8) Abscess Status: Chronic (9) Increasing PSA level after treatment for prostate cancer Status: Chronic (10) Left lower quadrant pain Status: Resolved (11) Constipation Status: Chronic Qualifiers: Constipation type: drug induced constipation Qualified Code(s): K59.03 - Drug induced constipation (12) Stomatitis Status: Chronic (13) Neutropenia, drug-induced Status: Chronic (14) CAITLIN (acute kidney injury) Status: Acute (15) Intractable nausea and vomiting Status: Acute History of Present Illness Date of Admission: 05/30/20 Chief Complaint: Intractable nausea, vomiting, acute kidney injury The patient is a 64 year old M with multiple comorbidities with history of metastatic prostate cancer to aortic lymph nodes on chemoradiation, last chemotherapy April 29, recent admission May 18?May 19 for CAITLIN due to obstructive uropathy came to ER with nausea, vomiting, decreased oral intake was found acute kidney injury on labs done by PCP. Patient did not had any urine output for last 2 days, at most about 200 mL During last time patient had cystoscopy, left ureteric stent placement for left hydronephrosis. In ED, vitals blood pressure 147/72, afebrile, respiratory rate normal no hypoxia. Chemistry shows BUN 83, creatinine 7.53, sodium 127, K5.5, bicarb 21, anion gap 16. H&H 8.8/26. Platelet count 234. UA protein 100, LE 500, WBC 0-5 cells negative nitrite. [] Past Medical History Past Medical History (Chronic Problems): Chronic Problems (Last Reviewed 05/10/20 @ 11:[address] 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 Hakan Okeefe, ) Abnormal biopsy result R89.7 [facility] PROSTATE 04/04/13 Diverticulitis K57.92 Elevated PSA R97.20 Erectile dysfunction after radical prostatectomy N52.31 GERD without esophagitis K21.9 History of bone scan Z92.89 [facility] 05/27/16 Hypercholesterolemia E78.00 Malignant neoplasm of prostate C61 Osteoarthritis M19.90 Osteoporosis M81.0 Port-A-Cath in place Z95.828 Stress incontinence, male N39.3 Unspecified retinal disorder H35.9 Unspecified visual disturbance H53.9 Hypertension I10 Allergies No Known Allergies Allergy (Verified 05/30/20 19:45) Home Medications: Ambulatory Orders Medication Instructions Recorded Dexlansoprazole [Dexilant] 60 mg PO DAILY 01/16/19 Ezetimibe [Zetia] 10 mg PO QHS 01/16/19 Leuprolide acetate [Eligard] 22.5 mg SQ X1 01/16/19 Psyllium Husk (with Sugar) 3.4 gm PO DAILY 01/22/19 [Metamucil Packet] Ondansetron [Zofran Odt] 4 mg PO Q8H PRN PRN 10 Days #30 tab 01/29/19 Prochlorperazine Maleate 10 mg PO Q6H PRN PRN 10 Days #30 01/29/19 tab Polyethylene Glycol 3350 [Miralax] 17 gm PO DAILY 10/30/19 Fentanyl 50 mcg TOPICAL UD 01/15/20 Oxycodone 5 mg PO BID 01/15/20 Magic Mouth Wash 15 ml PO Q6H PRN PRN #300 ml 04/23/20 Aspirin [Lo-Dose Aspirin EC] 81 mg PO DAILY 04/24/20 Prednisone 10 mg PO DAILY 60 Days #60 tab 04/24/20 Naloxegol Oxalate [Movantik] 12.5 mg PO DAILY 05/10/20 Amlodipine Besilate 5 mg PO DAILY 05/30/20 Surgical History: Surgical History (Last Reviewed 05/10/20 @ 11:[address] Hakan Okeefe DO) History of fusion of cervical spine Z98.1 History of radical prostatectomy Z90.79 2014 History of removal of Port-a-Cath Onset Date: ~03/2019 Z98.890 History of tonsillectomy Z90.89 Surgical History: no surgical history Smoking Status: Former smoker Review of Systems Constitutional: Reports: Anorexia, Malaise, Weakness, Weight Change, Fatigue. Denies: Chills, Fever Eyes: Reports: Drainage HEENT: Denies: Head Aches, Sinus Congestion, Sinus Drainage Cardiovascular: Denies: Chest Pain, Palpitations Respiratory: Denies: Cough, Shortness of breath at rest, Sputum production Gastrointestinal: Reports: Abdominal Pain - Right lumbar region abdominal pain, Nausea, Vomiting. Denies: Hematemesis, Hematochezia, Melena Genitourinary: Reports: -, - - Indwelling Valdez catheter. Denies: Dysuria, Frequency, Hematuria Musculoskeletal: Denies: Joint Pain, Joint Tenderness Skin: Denies: Rash, Wounds Neurological: Denies: Numbness, Tingling, Focal weakness Psychiatric: Denies: Anxiety, Depression, Homicidal Ideations, Suicidal Ideations Hematologic/ Lymphatic: Denies: Easy Bruising, Easy Bleeding VTE Information - Inpt Only VTE Present on Admission: No VTE Mechan Device Prophylaxis: SCD's, None VTE Pharm Prophylaxis ordered?: Yes Patient Problems: Active and Suspected Problems (Last Reviewed 05/10/20 @ 11:[address] Hakan Okeefe, DO) Encounter for adjustment and management of vascular access device (Acute) Chemotherapy management, encounter for (Acute) CAITLIN (acute kidney injury) (Acute) Intractable nausea and vomiting (Acute) Objective: General: Alert, Oriented x3, Cooperative HEENT: Atraumatic, PERRLA, EOMI, Normocephalic Oral: No Gingival or Mucosal Lesions/ Ulcerations Neck: Supple, No JVD, Negative Carotid Bruits Lungs: Air entry equal in bilateral lung bases. No crepitation/rhonchi Cardiovascular: Regular rate, Regular Rhythm, Normal S1, Normal S2, No murmurs Abdomen: Bowel Sounds Present, Soft, Non-Distended : Tenderness present over right lumbar area and right renal angle. Indwelling Valdez catheter urine probably 100 mL No suprapubic tenderness. Extremities: No edema, Capillary Refill Less than 3 Seconds Skin: No rashes, No breakdown Musculoskeletal: No Tenderness to Palpation of Joints or Extremities Neurological: Cranial nerves II-XII grossly intact, Deep Tendon Reflexes 2+/4 and Symmetrical, Neuro grossly intact Psych/Mental Status: Normal Affect, Appropriate. - Physical Exam Vitals/I&O's: Vital Signs Temp Pulse Resp BP Pulse Ox 96.9 F L 83 16 153/74 H 97 05/30/20 19:45 05/30/20 21:44 05/30/20 21:44 05/30/20 21:44 05/30/20 21:44 Oxygen Delivery Method Room Air Weight: 152 lb Body Mass Index (BMI) 23.1 Intake and Output for Last 24 Hours 05/28/20 05/29/20 05/30/20 23:59 23:59 23:59 Intake Total 1000.05 / 1000.05 Balance 1000.05 / 1000.05 Laboratory Results 05/30/20 20:38: WBC 8.1, RBC 2.87 L, Hgb 8.8 L, Hct 26.8 L, MCV 93.4, MCH 30.7, MCHC 32.8, RDW Std Deviation 49.7 H, RDW Coeff of Barbara 14.8 H, Plt Count 234, MPV 9.8, Immature Gran % (Auto) 1.100 H, Neut % (Auto) 86.0 H, Lymph % (Auto) 3.4 L, [place] % (Auto) 9.2, Eos % (Auto) 0.1, Baso % (Auto) 0.2, Absolute Neuts (auto) 7.0, Absolute Lymphs (auto) 0.28 L, Nucleated RBC % 0, Differential Comment SCANNED 05/30/20 20:38: Sodium 127 L, Potassium 5.5 H, Chloride 90 L, Carbon Dioxide 21.0, Anion Gap 16 H, BUN 83 H, Creatinine 7.53 H*, Estim Creat Clear Calc 9.71, Est GFR (MDRD) Af Amer 9 L, Est GFR (MDRD) Non-Af 8 L, BUN/Creatinine Ratio 11.0, Glucose 67 L, Calcium 8.5, Total Bilirubin 0.50, AST 27, ALT 11 L, Alkaline Phosphatase 53, Troponin I < 0.015, Total Protein 7.2, Albumin 2.8 L, Globulin 4.4 H, Albumin/Globulin Ratio 0.6 L, Lipase 31 L 05/30/20 22:20: Urine Color SEE COMMENT BELOW, Urine Clarity Clear, Urine pH 6.0, Ur Specific [place] 1.010, Urine Protein 100 H, Urine Glucose (UA) Normal, Urine Ketones 5 H, Urine Occult Blood 250 H, Urine Nitrite Negative, Urine Bilirubin Negative, Urine Urobilinogen Normal, Ur Leukocyte Esterase 500 H, Urine RBC 5-10 SEEN, Urine WBC 0-5 SEEN, Ur Squamous Epith Cells 0 SEEN, Urine Bacteria 0 SEEN, Urine Mucus 0 SEEN Assessment/Plan All Active Problems (Last Reviewed 05/10/20 @ 11:[address] Hakan Okeefe, DO) Encounter for adjustment and management of vascular access device (Acute) Chemotherapy management, encounter for (Acute) Left lower quadrant pain (Resolved) CAITLIN (acute kidney injury) (Acute) Intractable nausea and vomiting (Acute) 1. Acute kidney injury most likely postobstructive, prerenal from vomiting/dehydration: [facility] Patient had 1 L of normal saline in ER and 1 more liter bolus ordered. Discussed with the nurse paralegal Dr. Morgan and continue normal 75 mill per hour. Urologist Dr. Arroyo is aware and plan for cystoscopy in manager track. N.p.o. after midnight. Avoid nephrotoxic medications. Renal profile tomorrow a.m. Patient had cystoscopy, left retrograde pyelogram and left stent placement for left hydronephrosis on 05/15. CT abdomen shows bilateral moderate hydronephrosis, new hydronephrosis of right kidney and increased hydronephrosis in the left kidney. Bulky retroperitoneal adenopathy of abdomen and upper pelvis surrounding the left ureter and probably right ureter. 2. Metastatic prostate cancer with periaortic lymph node and resection of neck mass: Patient oncologist is Dr. Cuenca. Last radiation from . Last chemotherapy on April 29. On prednisone continue. Patient had prostatectomy with postoperative erectile dysfunction 3. Hypertension: Blood pressure in normal range. No CHECO/ARB or diuretics. 4.Hyperlipidemia: On ezetimibe 5 osteoarthritis: stable DVT prophylaxis: Heparin 5000 subcutaneous twice daily Living will/advanced directive/end of life care: Patient does not have living will or advanced directive. After discussion of benefits/risks procedures involved with full code, DNR CC arrest and DNR CC, the patient opted for DNR-CC Arrest with no intubation Patient does not want artificial life support including intubation, tube feed, ventilator and/chest compression, central venous catheter, vasopressor and DC shock if needed Total time spent in [id number] encounter in discussion of advanced directive 16 minutes. Laboratory Results 05/30/20 20:38: WBC 8.1, RBC 2.87 L, Hgb 8.8 L, Hct 26.8 L, MCV 93.4, MCH 30.7, MCHC 32.8, RDW Std Deviation 49.7 H, RDW Coeff of Barbara 14.8 H, Plt Count 234, MPV 9.8, Immature Gran % (Auto) 1.100 H, Neut % (Auto) 86.0 H, Lymph % (Auto) 3.4 L, [place] % (Auto) 9.2, Eos % (Auto) 0.1, Baso % (Auto) 0.2, Absolute Neuts (auto) 7.0, Absolute Lymphs (auto) 0.28 L, Nucleated RBC % 0, Differential Comment SCANNED 05/30/20 20:38: Sodium 127 L, Potassium 5.5 H, Chloride 90 L, Carbon Dioxide 21.0, Anion Gap 16 H, BUN 83 H, Creatinine 7.53 H*, Estim Creat Clear Calc 9.71, Est GFR (MDRD) Af Amer 9 L, Est GFR (MDRD) Non-Af 8 L, BUN/Creatinine Ratio 11.0, Glucose 67 L, Calcium 8.5, Total Bilirubin 0.50, AST 27, ALT 11 L, Alkaline Phosphatase 53, Troponin I < 0.015, Total Protein 7.2, Albumin 2.8 L, Globulin 4.4 H, Albumin/Globulin Ratio 0.6 L, Lipase 31 L 05/30/20 22:20: Urine Color SEE COMMENT BELOW, Urine Clarity Clear, Urine pH 6.0, Ur Specific [place] 1.010, Urine Protein 100 H, Urine Glucose (UA) Normal, Urine Ketones 5 H, Urine Occult Blood 250 H, Urine Nitrite Negative, Urine Bilirubin Negative, Urine Urobilinogen Normal, Ur Leukocyte Esterase 500 H, Urine RBC 5-10 SEEN, Urine WBC 0-5 SEEN, Ur Squamous Epith Cells 0 SEEN, Urine Bacteria 0 SEEN, Urine Mucus 0 SEEN Clinical Impression(s) from Imaging Studies Abdomen/Pelvis CT 05/30/20 21:26 IMPRESSION: Bilateral moderate hydronephrosis. This is new hydronephrosis of the right kidney. Increased hydronephrosis of the left kidney despite the presence of a left ureteral stent appearing to be in good position. Bulky retroperitoneal adenopathy of the abdomen and upper pelvis surrounds the left ureter containing the stent and probably surrounds the right ureter. Small volume urinary bladder decompressed with VALDEZ catheter. The retroperitoneal adenopathy is similar in degree to the prior exam, less well-defined secondary to absence of intravenous contrast on the current exam. New small right pleural effusion and bibasilar atelectasis. Generalized anasarca. No acute bowel findings. Unremarkable liver spleen and pancreas with a nondistended gallbladder. Inpatient E&M: 79124 Init Hosp L3 Procedures: 86334 Advncd Care Plan 30 Min
[2020-05-30 23:26] VITALS: BP 147/72; PULSE 77; RESP 13; O2SAT 96
[2020-05-31] VITALS (13 sets, daily range): BP systolic 125–166; BP diastolic 66–78; PULSE 69–97; RESP 13–18; TEMP 36.1–37; O2SAT 93–98; BMI 24.6; BMI 24.5
[2020-05-31] MEDS: 0.9% Normal Saline 1,000 ML 999 ML IV (00:16)
[2020-05-31] MEDS: 0.9% Normal Saline 1,000 ML 75 ML IV ×2 (01:13→10:32)
[2020-05-31 01:21] LABS: Magnesium 2.1 mg/dL (1.6-2.6)
[2020-05-31] MEDS: Ceftriaxone 1 GM/50 ML BAG IV ×2 (01:27→21:47)
[2020-05-31] MEDS: HYDROmorphone 0.5 MG/0.5 ML SYRINGE IV ×3 (01:33→12:22)
[2020-05-31 02:04] LABS: Mucous, Urine 0 SEEN /hpf (<or=2+); Squamous Epithelial Cells - UA 0 SEEN /hpf (0-5)
[2020-05-31 02:05] LABS: Color, Urine Yellow (Yellow); Glucose, Dipstick Normal (Normal); Ketone-Dipstick 5 mg/dl (Negative); Leukocyte Esterase-Dipstick 25 /ul (Negative); Nitrite-Dipstick Negative (Negative); Occult Blood-Urine 250 /ul (Negative); Protein-Dipstick 30 mg/dl (Negative); Urine Bilirubin Dipstick Negative (Negative); Urine Clarity Clear (Clear); Urine Urobilinogen Normal (Normal)
[2020-05-31 02:12] LABS: Bacteria 1+ /hpf (None Seen); Red Blood Cells-Urine 0-5 SEEN /hpf (0-5); White Blood Cells 0-5 SEEN /hpf (0-5)
[2020-05-31] MEDS: CLARIFY ORDER 1 EACH NOTE (04:04)
[2020-05-31] MEDS: 0.9% Saline Lock 10 ML Syringe IV (08:34)
[2020-05-31 08:38] LABS: Absolute Lymphocyte Count 0.28 X10^3/uL (0.83-4.51); Absolute Neutrophil Count 5.9 X10^3/uL (2.0-7.7); Basophil# 0.03 X10^3/uL; Basophil% 0.4 % (0-1); Eosinophil# 0.02 X10^3/uL; Eosinophils% 0.3 % (0-5); Hematocrit 23.9 % (40-54); Hemoglobin 7.8 g/dL (13.0-16.5); Lymphocyte # 0.28 X10^3/ul (4.0); Lymphocyte % 3.9 % (19-41); Mean Corp Hgb Conc 32.6 g/dL (32-36); Mean Corpuscular Hgb 30.4 pg (27.0-32.0); Mean Platelet Vol. 9.8 fl (6.2-12.0); Monocyte# 0.89 X10^3/uL; Monocyte% 12.4 % (0-10); NRBC Flagged by Analyzer 0 % (0-5); Neutrophil # 5.88 X10^3/uL (2.7-7.7); POSITIVE DIFFERENTIAL YES; Platelet Count 190 K/mm3 (150-450); RBC Distribution Width CV 14.8 % (11.6-14.6); Red Blood Count 2.57 M/mm3 (4.6-6.2); White Blood Count 7.2 K/mm3 (4.4-11.0)
[2020-05-31 08:40] LABS: Differential Indicated SCAN CRITERIA MET
[2020-05-31 08:43] LABS: International Normalized Ratio 1.1
[2020-05-31 08:54] LABS: Albumin, Serum 2.4 g/dL (3.2-5.0); BUN 84 mg/dL (7-18); BUN/Creat Ratio 11.5 RATIO (10-20); Calcium,Total 8.2 mg/dL (8.5-10.1); Chloride 95 mmol/L (98-107); Creatinine, Serum 7.32 mg/dL (0.70-1.30); EST Glomerular Filtration Rate 8 mL/min (>60); Est Glom Filt Rate - Afr Amer 10 mL/min (>60); Estimated Creatinine Clearance 9.99 ml/min; Glucose 74 mg/dL (74-106); Phosphorus 6.9 mg/dL (2.5-4.9); Potassium 4.6 mmol/L (3.5-5.1); Sodium Level 130 mmol/L (136-145)
[2020-05-31 09:04] LABS: Hypochromasia 2+; Platelet Estimate ADEQUATE (ADEQ)
--- NOTE | 2020-05-31 09:19 | PCM.CONS.U ---
Problem List (1) Prostate cancer metastatic to intraabdominal lymph node Status: Chronic Reason for Consult Date of Consultation: 05/31/20 Reason for Consultation: Bilateral hydronephrosis acute renal failure History of Present Illness: The patient is a 64 year old male with a history of metastatic prostate cancer he presents the hospital with bilateral hydronephrosis due to intraop note intra-abdominal adenopathy he has a stent in the left side but still has significant hydro so again taken to surgery and change the left stent to larger stent and on the right side he has new onset of hydronephrosis so we will put a new stent on the right side. Understands is possible this may fail and he may need nephrostomy tubes Past Medical History Past Medical History (Chronic Problems): Chronic Problems (Last Reviewed 05/10/20 @ 11:[address] Hakan Okeefe DO) Prostate cancer metastatic to intraabdominal lymph node (Chronic) Encounter for education (Chronic) Chemotherapy follow-up examination (Chronic) Mucositis (ulcerative) due to antineoplastic therapy (Chronic) Erectile dysfunction after radical prostatectomy (Chronic) Abscess (Chronic) Increasing PSA level after treatment for prostate cancer (Chronic) Constipation (Chronic) Stomatitis (Chronic) Neutropenia, drug-induced (Chronic) Medical History: Medical History (Last Reviewed 05/31/20 @ 09:[address] Toy Arroyo MD) Abnormal biopsy result R89.7 [facility] PROSTATE 04/04/13 Diverticulitis K57.92 Elevated PSA R97.20 Erectile dysfunction after radical prostatectomy N52.31 GERD without esophagitis K21.9 History of bone scan Z92.89 [facility] 05/27/16 Hypercholesterolemia E78.00 Malignant neoplasm of prostate C61 Osteoarthritis M19.90 Osteoporosis M81.0 Port-A-Cath in place Z95.828 Stress incontinence, male N39.3 Unspecified retinal disorder H35.9 Unspecified visual disturbance H53.9 Hypertension I10 Allergies No Known Allergies Allergy (Verified 05/30/20 19:45) Home Medications: Ambulatory Orders Medication Instructions Recorded Dexlansoprazole [Dexilant] 60 mg PO DAILY 01/16/19 Ezetimibe [Zetia] 10 mg PO QHS 01/16/19 Leuprolide acetate [Eligard] 22.5 mg SQ X1 01/16/19 Psyllium Husk (with Sugar) 3.4 gm PO DAILY 01/22/19 [Metamucil Packet] Ondansetron [Zofran Odt] 4 mg PO Q8H PRN PRN 10 Days #30 tab 01/29/19 Prochlorperazine Maleate 10 mg PO Q6H PRN PRN 10 Days #30 01/29/19 tab Polyethylene Glycol 3350 [Miralax] 17 gm PO DAILY 10/30/19 Fentanyl 50 mcg TOPICAL UD 01/15/20 Oxycodone 5 mg PO BID 01/15/20 Magic Mouth Wash 15 ml PO Q6H PRN PRN #300 ml 04/23/20 Aspirin [Lo-Dose Aspirin EC] 81 mg PO DAILY 04/24/20 Prednisone 10 mg PO DAILY 60 Days #60 tab 04/24/20 Naloxegol Oxalate [Movantik] 12.5 mg PO DAILY 05/10/20 Amlodipine Besilate 5 mg PO DAILY 05/30/20 Surgical History: Surgical History (Last Reviewed 05/31/20 @ 09:[address] Toy Arroyo MD) History of fusion of cervical spine Z98.1 History of radical prostatectomy Z90.79 2014 History of removal of Port-a-Cath Onset Date: ~03/2019 Z98.890 History of tonsillectomy Z90.89 Surgical History: - - Tonsillectomy, radical prostatectomy, left ureter stent Lives: Spouse/ Significant Other Smoking Status: Former smoker - *Family History Maternal Family History: Family History (Last Reviewed 05/10/20 @ 11:[address] Hakan Okeefe DO) Brother CAD (coronary artery disease) Coronary artery disease involving coronary bypass graft Father CAD (coronary artery disease) Coronary artery disease involving coronary bypass graft History Items: No pertinent history Review of Systems Constitutional: Denies: Chills, Fever, Weight Change HEENT: Denies: Head Aches, Sinus Congestion, Sinus Drainage Cardiovascular: Denies: Chest Pain, Palpitations Respiratory: Denies: Cough, Shortness of breath at rest, Sputum production Gastrointestinal: Denies: Abdominal Pain, Nausea, Vomiting Genitourinary: Denies: Dysuria Musculoskeletal: Denies: Joint Pain, Joint Tenderness Skin: Denies: Rash, Wounds Neurological: Denies: Numbness, Tingling, Focal weakness Psychiatric: Denies: Anxiety, Depression, Homicidal Ideations, Suicidal Ideations Hematologic/ Lymphatic: Denies: Easy Bruising, Easy Bleeding Physical Exam - Physical Exam Vital Signs Temp 98.1 F 05/31/20 08:54 Pulse 77 05/31/20 08:54 Resp 14 05/31/20 08:54 BP 134/73 H 05/31/20 08:54 Pulse Ox 96 05/31/20 08:54 Intake & Output 05/29/20 05/30/20 05/31/20 23:59 23:59 23:59 Intake Total 1000.05 / 1000.05 983.25 / 983.25 Output Total 200 / 200 Balance 1000.05 / 1000.05 783.25 / 783.25 Weight: 68.946 kg 73.5 kg Intake: Intake, IV Amount 1000.05 / 1000.05 983.25 / 983.25 0.9% Normal Saline 1,000 ML @ 1000 / 1000 1000 mls/hr IV .Q1H [facility] Rx#: [id number] 0.9% Normal Saline 1,000 ML @ 17.5 / 17.5 75 mls/hr IV .[id number] [facility] Rx#: [id number] 0.9% Normal Saline 1,000 ML @ 915.75 / 915.75 999 mls/hr IV .Q1H1M [facility] Rx#: [id number] Humalog (BKC) 5 UNIT In Syringe 0.05 / 0.05 1 ML @ 3 mls/hr IV X1 [facility] Rx#: [id number] Rocephin 1 gm In 50 ml @ 100 50 / 50 mls/hr IV QHS [facility] Rx#:[id number] Output: Urine 200 / 200 General: Alert, Oriented x3, Cooperative HEENT: Atraumatic Oral: Moist Mucosa Neck: Supple Lungs: Normal air movement Cardiovascular: Regular Rhythm Abdomen: Soft Rectal: Exam deferred Laboratory Tests Past 24 Hrs 05/30/20 05/30/20 05/30/20 20:38 20:38 20:38 WBC 8.1 RBC 2.87 L Hgb 8.8 L Hct 26.8 L MCV 93.4 MCH 30.7 MCHC 32.8 RDW Std Deviation 49.7 H RDW Coeff of Barbara 14.8 H Plt Count 234 MPV 9.8 Immature Gran % (Auto) 1.100 H Neut % (Auto) 86.0 H Lymph % (Auto) 3.4 L [place] % (Auto) 9.2 Eos % (Auto) 0.1 Baso % (Auto) 0.2 Absolute Neuts (auto) 7.0 Absolute Lymphs (auto) 0.28 L Nucleated RBC % 0 Differential Comment SCANNED Platelet Estimate Hypochromasia PT INR Sodium 127 L Potassium 5.5 H Chloride 90 L Carbon Dioxide 21.0 Anion Gap 16 H BUN 83 H Creatinine 7.53 H* Estim Creat Clear Calc 9.71 Est GFR (MDRD) Af Amer 9 L Est GFR (MDRD) Non-Af 8 L BUN/Creatinine Ratio 11.0 Glucose 67 L Calcium 8.5 Phosphorus Magnesium 2.1 Total Bilirubin 0.50 AST 27 ALT 11 L Alkaline Phosphatase 53 Troponin I < 0.015 Total Protein 7.2 Albumin 2.8 L Globulin 4.4 H Albumin/Globulin Ratio 0.6 L Lipase 31 L Urine Color Urine Clarity Urine pH Ur Specific [place] Urine Protein Urine Glucose (UA) Urine Ketones Urine Occult Blood Urine Nitrite Urine Bilirubin Urine Urobilinogen Ur Leukocyte Esterase Urine RBC Urine WBC Ur Squamous Epith Cells Urine Bacteria Urine Mucus 05/30/20 05/31/20 05/31/20 22:20 01:17 07:20 WBC 7.2 RBC 2.57 L Hgb 7.8 L Hct 23.9 L MCV 93.0 MCH 30.4 MCHC 32.6 RDW Std Deviation 50.0 H RDW Coeff of Barbara 14.8 H Plt Count 190 MPV 9.8 Immature Gran % (Auto) 1.000 H Neut % (Auto) 82.0 H Lymph % (Auto) 3.9 L [place] % (Auto) 12.4 H Eos % (Auto) 0.3 Baso % (Auto) 0.4 Absolute Neuts (auto) 5.9 Absolute Lymphs (auto) 0.28 L Nucleated RBC % 0 Differential Comment Platelet Estimate ADEQUATE Hypochromasia 2+ PT INR Sodium Potassium Chloride Carbon Dioxide Anion Gap BUN Creatinine Estim Creat Clear Calc Est GFR (MDRD) Af Amer Est GFR (MDRD) Non-Af BUN/Creatinine Ratio Glucose Calcium Phosphorus Magnesium Total Bilirubin AST ALT Alkaline Phosphatase Troponin I Total Protein Albumin Globulin Albumin/Globulin Ratio Lipase Urine Color SEE COMMENT BELOW Yellow Urine Clarity Clear Clear Urine pH 6.0 6.0 Ur Specific [place] 1.010 1.010 Urine Protein 100 H 30 H Urine Glucose (UA) Normal Normal Urine Ketones 5 H 5 H Urine Occult Blood 250 H 250 H Urine Nitrite Negative Negative Urine Bilirubin Negative Negative Urine Urobilinogen Normal Normal Ur Leukocyte Esterase 500 H 25 H Urine RBC 5-10 SEEN 0-5 SEEN Urine WBC 0-5 SEEN 0-5 SEEN Ur Squamous Epith Cells 0 SEEN 0 SEEN Urine Bacteria 0 SEEN 1+ Urine Mucus 0 SEEN 0 SEEN 05/31/20 05/31/20 07:20 07:20 WBC RBC Hgb Hct MCV MCH MCHC RDW Std Deviation RDW Coeff of Barbara Plt Count MPV Immature Gran % (Auto) Neut % (Auto) Lymph % (Auto) [place] % (Auto) Eos % (Auto) Baso % (Auto) Absolute Neuts (auto) Absolute Lymphs (auto) Nucleated RBC % Differential Comment Platelet Estimate Hypochromasia PT 14.0 INR 1.1 Sodium 130 L Potassium 4.6 Chloride 95 L Carbon Dioxide 20.0 L Anion Gap BUN 84 H Creatinine 7.32 H Estim Creat Clear Calc 9.99 Est GFR (MDRD) Af Amer 10 L Est GFR (MDRD) Non-Af 8 L BUN/Creatinine Ratio 11.5 Glucose 74 Calcium 8.2 L Phosphorus 6.9 H Magnesium Total Bilirubin AST ALT Alkaline Phosphatase Troponin I Total Protein Albumin 2.4 L Globulin Albumin/Globulin Ratio Lipase Urine Color Urine Clarity Urine pH Ur Specific [place] Urine Protein Urine Glucose (UA) Urine Ketones Urine Occult Blood Urine Nitrite Urine Bilirubin Urine Urobilinogen Ur Leukocyte Esterase Urine RBC Urine WBC Ur Squamous Epith Cells Urine Bacteria Urine Mucus Assessment/Plan All Active Problems (Last Reviewed 05/10/20 @ 11:[address] Hakan Okeefe, DO) Encounter for adjustment and management of vascular access device (Acute) Chemotherapy management, encounter for (Acute) Left lower quadrant pain (Resolved) CAITLIN (acute kidney injury) (Acute) Intractable nausea and vomiting (Acute) Bilateral hydronephrosis (Acute) Hyponatremia (Acute) 64-year-old male with history of metastatic prostate cancer presents with bilateral hydronephrosis plan for cystoscopy and bilateral stent placement today n.p.o. for surgery.
[2020-05-31] MEDS: Lidocaine Jelly 2% 20 ML Syringe (URO-JET) 20 APPLIC (10:00)
--- NOTE | 2020-05-31 10:17 | OP.PCM_ITS ---
Problem List (1) Prostate cancer metastatic to intraabdominal lymph node Status: Chronic Report of Operation Date of Procedure: 05/31/20 Pre-Operative Diagnosis: Bilateral hydronephrosis obstruction due to adenopathy and from prostate cancer Post-Operative Diagnosis: Same Surgery/Procedure Performed:: Cystoscopy bilateral retrograde pyelograms, exchange of stent on the left side for larger stent, and placement of a stent in the right side. Description of Surgical Findings:: Patient was taken back to the operating room after induction of general anesthesia, the patient was placed in dorsolithotomy position. The urethra and genitals were prepped and draped in usual sterile fashion. Using a 21 Samoan rigid cystourethroscope the entire length of the urethra was normal then went in to the bladder. Identified the trigone the left and right ureteral orifice. I then removed the left 6fr x 26cm stent and advanced a 0.038 guide wire up into the kidney. I then backloaded a 5 Samoan open ended catheter over the wire and injected contrast to delineate the anatomy. After the retrograde was performed I then used fluoroscopic images and guidance to advanced a wire up into the kidney and over the 0.038 glidewire I advanced a 8 Samoan by 26 cm double pigtail stent. I then pulled the 0.038 Glidewire off and the stent coiled in the kidney bladder good position. The bladder was then drained. We confirmed the position of the stent by fluoroscopy. I then Identified the trigone the left and right ureteral orifice. I then cannulated the left orifice with a 0.035 angle tip glide wire and advanced a wire up into the kidney. I then backloaded a 5 Samoan open ended catheter over the wire and injected contrast to delineate the anatomy. After the retrograde was performed I then used fluoroscopic images and guidance to advanced a wire up into the kidney and over the 0.038 glidewire I advanced a 6 Samoan by 26 cm double pigtail stent. I then pulled the 0.038 Glidewire off and the stent coiled in the kidney bladder good position. The bladder was then drained. We confirmed the position of the stent by fluoroscopy. Patient anesthetic was reversed and was taken back to the PACU in good condition. Type of Anesthesia:: Local MAC Drains: left 8fr x 26cm, right 6fr x 26cm stents - Admit VTE Documentation VTE Present on Admission: No VTE Mechan Device Prophylaxis: SCD's
--- NOTE | 2020-05-31 10:41 | NURSING ---
Pt has Fentanyl patch 50mcg on rt deltoid from home. Patch not ordered here. Removed patch and flushed down toilet with EVELIA Salas witnessing.
--- NOTE | 2020-05-31 11:00 | CM.UR ---
Attempted to see at this time however patient is currently in OR. Shaquille Palmer RN, CCM.
[2020-05-31] MEDS: Aspirin E.C. 81 MG Tablet PO (13:22)
[2020-05-31] MEDS: predniSONE 10 MG Tablet PO (13:22)
--- NOTE | 2020-05-31 13:29 | PN_ITS ---
Patient Problems: Active and Suspected Problems (Last Reviewed 05/31/20 @ 09:[address] Toy Arroyo MD) Encounter for adjustment and management of vascular access device (Acute) Chemotherapy management, encounter for (Acute) CAITLIN (acute kidney injury) (Acute) Intractable nausea and vomiting (Acute) Bilateral hydronephrosis (Acute) Hyponatremia (Acute) Subjective: Patient was seen and examined today, he underwent stent placement in both ureters today due to bilateral hydronephrosis from extrinsic compression due to prostate cancer. Patient has no complaints of any flank pain today at the time of my examination, he does not complain of any fever or chills. - Physical Exam Vitals/I&O's: Vital Signs Temp Pulse Resp BP Pulse Ox 97.5 F L 97 18 166/72 H 97 05/31/20 11:46 05/31/20 11:46 05/31/20 11:46 05/31/20 11:46 05/31/20 11:46 Oxygen Delivery Method Room Air Weight: 73.5 kg Body Mass Index (BMI) 24.5 Intake and Output for Last 24 Hours 05/29/20 05/30/20 05/31/20 23:59 23:59 23:59 Intake Total 1000.05 / 1000.05 2015.75 / 2015.75 Output Total 1580 / 1580 Balance 1000.05 / 1000.05 435.75 / 435.75 General: Alert, Oriented x3, Cooperative, No apparent distress, Well developed, Well nourished HEENT: Atraumatic, PERRLA, EOMI, Normocephalic Oral: Moist Mucosa Neck: Supple, No JVD, Trachea Midline, Thyroid Normal Size and Texture Lungs: Clear to auscultation, Normal air movement, No rhonchi, No wheeze, No rales Cardiovascular: Regular rate, Regular Rhythm, Normal S1, Normal S2, No murmurs Abdomen: Bowel Sounds Present, Soft, Non Tender, Non-Distended Extremities: No clubbing, No cyanosis, No edema, Capillary Refill Less than 3 Seconds Skin: No rashes, No breakdown Musculoskeletal: No Tenderness to Palpation of Joints or Extremities, No Muscle Wasting Neurological: Cranial nerves II-XII grossly intact, Neuro grossly intact, Sensory exam intact to light touch and pain, Coordination normal Psych/Mental Status: Normal Affect, Appropriate, Alert and oriented to time, place, person, mood and affect Laboratory Results 05/30/20 20:38: WBC 8.1, RBC 2.87 L, Hgb 8.8 L, Hct 26.8 L, MCV 93.4, MCH 30.7, MCHC 32.8, RDW Std Deviation 49.7 H, RDW Coeff of Barbara 14.8 H, Plt Count 234, MPV 9.8, Immature Gran % (Auto) 1.100 H, Neut % (Auto) 86.0 H, Lymph % (Auto) 3.4 L, [place] % (Auto) 9.2, Eos % (Auto) 0.1, Baso % (Auto) 0.2, Absolute Neuts (auto) 7.0, Absolute Lymphs (auto) 0.28 L, Nucleated RBC % 0, Differential Comment SCANNED 05/30/20 20:38: Sodium 127 L, Potassium 5.5 H, Chloride 90 L, Carbon Dioxide 21.0, Anion Gap 16 H, BUN 83 H, Creatinine 7.53 H*, Estim Creat Clear Calc 9.71, Est GFR (MDRD) Af Amer 9 L, Est GFR (MDRD) Non-Af 8 L, BUN/Creatinine Ratio 11.0, Glucose 67 L, Calcium 8.5, Total Bilirubin 0.50, AST 27, ALT 11 L, Alkaline Phosphatase 53, Troponin I < 0.015, Total Protein 7.2, Albumin 2.8 L, Globulin 4.4 H, Albumin/Globulin Ratio 0.6 L, Lipase 31 L 05/30/20 20:38: Magnesium 2.1 05/30/20 22:20: Urine Color SEE COMMENT BELOW, Urine Clarity Clear, Urine pH 6.0, Ur Specific [place] 1.010, Urine Protein 100 H, Urine Glucose (UA) Normal, Urine Ketones 5 H, Urine Occult Blood 250 H, Urine Nitrite Negative, Urine Bilirubin Negative, Urine Urobilinogen Normal, Ur Leukocyte Esterase 500 H, Urine RBC 5-10 SEEN, Urine WBC 0-5 SEEN, Ur Squamous Epith Cells 0 SEEN, Urine Bacteria 0 SEEN, Urine Mucus 0 SEEN 05/31/20 01:17: Urine Color Yellow, Urine Clarity Clear, Urine pH 6.0, Ur S pecific [place] 1.010, Urine Protein 30 H, Urine Glucose (UA) Normal, Urine Ketones 5 H, Urine Occult Blood 250 H, Urine Nitrite Negative, Urine Bilirubin Negative, Urine Urobilinogen Normal, Ur Leukocyte Esterase 25 H, Urine RBC 0-5 SEEN, Urine WBC 0-5 SEEN, Ur Squamous Epith Cells 0 SEEN, Urine Bacteria 1+, Urine Mucus 0 SEEN 05/31/20 07:20: WBC 7.2, RBC 2.57 L, Hgb 7.8 L, Hct 23.9 L, MCV 93.0, MCH 30.4, MCHC 32.6, RDW Std Deviation 50.0 H, RDW Coeff of Barbara 14.8 H, Plt Count 190, MPV 9.8, Immature Gran % (Auto) 1.000 H, Neut % (Auto) 82.0 H, Lymph % (Auto) 3.9 L, [place] % (Auto) 12.4 H, Eos % (Auto) 0.3, Baso % (Auto) 0.4, Absolute Neuts (auto) 5.9, Absolute Lymphs (auto) 0.28 L, Nucleated RBC % 0, Platelet Estimate ADEQUATE, Hypochromasia 2+ 05/31/20 07:20: PT 14.0, INR 1.1 05/31/20 07:20: Sodium 130 L, Potassium 4.6, Chloride 95 L, Carbon Dioxide 20.0 L, BUN 84 H, Creatinine 7.32 H, Estim Creat Clear Calc 9.99, Est GFR (MDRD) Af Amer 10 L, Est GFR (MDRD) Non-Af 8 L, BUN/Creatinine Ratio 11.5, Glucose 74, Calcium 8.2 L, Phosphorus 6.9 H, Albumin 2.4 L Current Medications Acetaminophen (Acetaminophen 325 Mg Tablet) 650 mg PO Q6H PRN PRN PRN Reason: Pain Score 1-10/Temp > 100.7 F Aspirin (Aspirin E.C. 81 Mg Tablet) 81 mg PO DAILY [facility] Last Admin: 05/31/20 13:22 Dose: 81 mg Documented by: Ezetimibe (Ezetimibe 10 Mg Tablet) 10 mg PO QHS [facility] Heparin Sodium (Porcine) (Heparin Injection (Vial) 5,000 Unit/Ml Vial) 5,000 unit SC Q12 [facility] Last Admin: 05/31/20 13:23 Dose: Not Given Documented by: Hydromorphone HCl (Hydromorphone 0.5 Mg/0.5 Ml Syringe) 0.5 mg IV Q4H PRN PRN PRN Reason: Pain Score 6-10 Last Admin: 05/31/20 12:22 Dose: 0.5 mg Documented by: Sodium Chloride () 1,000 mls @ 125 mls/hr IV .Q8H [facility] Last Admin: 05/31/20 10:32 Dose: 75 mls/hr Documented by: Ceftriaxone Sodium (Rocephin) 1 gm in 50 mls @ 100 mls/hr IV QHS [facility] Last Infusion: 05/31/20 01:57 Dose: Infused Documented by: Sodium Chloride () 250 mls @ 15 mls/hr IV .[id number] PRN PRN Reason: Saline Flush Sodium Chloride () 250 mls @ 15 mls/hr IV .[id number] PRN PRN Reason: Additional IVPB Infusion Sodium Chloride () 250 mls @ 15 mls/hr IV .[id number] PRN PRN Reason: Saline Flush Lidocaine/Diphenhydr/Alum/Mg/Simeth (Bmx Liquid 180 Ml) 15 ml PO ACHS PRN PRN Reason: MOUTH PAIN Nitroglycerin (Nitroglycerin (Inpatient Use) 0.4 Mg Tab.Subl) 0.4 mg SL Q5M PRN PRN Reason: CARDIAC/CHEST PAIN Nutritional Formula (Lactose Free) (Ensure Enlive 120 Ml Liquid) 120 ml PO 4X/DAY [facility] Last Admin: 05/31/20 13:23 Dose: Not Given Documented by: Ondansetron HCl (Ondansetron Odt 4 Mg Tablet) 4 mg PO Q8H PRN PRN PRN Reason: NAUSEA Oxycodone HCl (Oxycodone 5 Mg Tablet) 5 mg PO Q4H PRN PRN PRN Reason: Pain Score 4-5 Polyethylene Glycol (Polyethylene Glycol 3350 17 Gm Packet) 17 gm PO DAILY [facility] Last Admin: 05/31/20 13:23 Dose: Not Given Documented by: Prednisone ([facility] 10 Mg [facility]t) [facility] Last Admin: 05/31/20 13:22 Dose: 10 mg Documented by: Prochlorperazine Edisylate (Prochlorperazine 10 Mg/2 Ml Vial) 5 mg IV Q4H PRN PRN PRN Reason: Breakthrough nausea/vomiting Senna/Docusate Sodium (Senna/Docusate Sodium 1 Tablet) 2 tablet PO BID PRN PRN PRN Reason: Constipation Sodium Chloride (0.9% Saline Lock 10 Ml Syringe) 10 - 40 ml IV UD PRN PRN Reason: SALINE FLUSH Last Admin: 05/31/20 08:34 Dose: 10 ml Documented by: Sodium Chloride (0.9% Saline Lock 10 Ml Syringe) 10 - 40 ml IV UD PRN PRN Reason: SALINE FLUSH Zolpidem Tartrate (Zolpidem Tartrate 5 Mg Tablet) 5 mg PO QHS PRN PRN PRN Reason: INSOMNIA Medical Necessity - Tobacco Use Smoking Status: Former smoker Assessment/Plan All Active Problems (Last Reviewed 05/31/20 @ 09:[address] Toy Arroyo MD) Encounter for adjustment and management of vascular access device (Acute) Chemotherapy management, encounter for (Acute) Left lower quadrant pain (Resolved) CAITLIN (acute kidney injury) (Acute) Intractable nausea and vomiting (Acute) Bilateral hydronephrosis (Acute) Hyponatremia (Acute) #1 acute kidney injury secondary to obstructive uropathy from prostate cancer- patient had stents placed today both ureters, I will increase patient's fluid to 125 cc/h, labs will be repeated tomorrow #2 prostate cancer #3 hyponatremia-BMP will be rechecked tomorrow #4 osteoarthritis #5 anemia-probably secondary to chronic disease (prostate cancer), recheck CBC tomorrow Inpatient E&M: 17693 Subs Hosp L2
[2020-05-31] MEDS: oxyCODONE 5 MG Tablet PO ×2 (14:06→21:47)
--- NOTE | 2020-05-31 16:56 | PCM.CONS.R ---
Consultation - Renal PCP/ Referring MD: Requesting physician: [] Primary care physician: Dr. Denny Carrasco, DO - History of Present Illness History of Present Illness: The patient is a 64 year old M past medical history of metastatic prostate cancer to aortic lymph nodes on chemoradiation, last chemotherapy April 29, recent admission May 18?May 19 for CAITLIN due to obstructive uropathy came to ER with nausea, vomiting, decreased oral intake was found acute kidney injury . Creatinine was up to 7.5 mg deciliter patient .CT abdomen showed bilateral hydronephrosis with worsening left hydronephrosis and new right hydronephrosis . Urology is consulted .patient had cystoscopy and bilateral ureteral stent placement today . Patient has a Rodas catheter which is draining urine . Patient denies any nausea vomiting today . No shortness of breath . No NSAID use . No IV contrast No skin rash .no gross hematuria before coming to the hospital Review of systems: 12 system review is negative today - Allergies Allergies: Allergies No Known Allergies Allergy (Verified 05/30/20 19:45) - Current Medications Current Medications: Current Medications Acetaminophen (Acetaminophen 325 Mg Tablet) 650 mg PO Q6H PRN PRN PRN Reason: Pain Score 1-10/Temp > 100.7 F Aspirin (Aspirin E.C. 81 Mg Tablet) 81 mg PO DAILY [facility] Last Admin: 05/31/20 13:22 Dose: 81 mg Documented by: Ezetimibe (Ezetimibe 10 Mg Tablet) 10 mg PO QHS [facility] Fentanyl (Fentanyl 50 Mcg Patch) 50 mcg TD Q72H [facility] Last Admin: 05/31/20 16:10 Dose: 50 mcg Documented by: Heparin Sodium (Porcine) (Heparin Injection (Vial) 5,000 Unit/Ml Vial) 5,000 unit SC Q12 [facility] Last Admin: 05/31/20 13:23 Dose: Not Given Documented by: Hydromorphone HCl (Hydromorphone 0.5 Mg/0.5 Ml Syringe) 0.5 mg IV Q4H PRN PRN PRN Reason: Pain Score 6-10 Last Admin: 05/31/20 12:22 Dose: 0.5 mg Documented by: Ceftriaxone Sodium (Rocephin) 1 gm in 50 mls @ 100 mls/hr IV QHS [facility] Last Infusion: 05/31/20 01:57 Dose: Infused Documented by: Sodium Chloride () 250 mls @ 15 mls/hr IV .[id number] PRN PRN Reason: Saline Flush Sodium Chloride () 250 mls @ 15 mls/hr IV .[id number] PRN PRN Reason: Additional IVPB Infusion Sodium Chloride () 250 mls @ 15 mls/hr IV .[id number] PRN PRN Reason: Saline Flush Lidocaine/Diphenhydr/Alum/Mg/Simeth (Bmx Liquid 180 Ml) 15 ml PO ACHS PRN PRN Reason: MOUTH PAIN Nitroglycerin (Nitroglycerin (Inpatient Use) 0.4 Mg Tab.Subl) 0.4 mg SL Q5M PRN PRN Reason: CARDIAC/CHEST PAIN Nutritional Formula (Lactose Free) (Ensure Enlive 120 Ml Liquid) 120 ml PO 4X/DAY [facility] Last Admin: 05/31/20 13:23 Dose: Not Given Documented by: Ondansetron HCl (Ondansetron Odt 4 Mg Tablet) 4 mg PO Q8H PRN PRN PRN Reason: NAUSEA Oxycodone HCl (Oxycodone 5 Mg Tablet) 5 mg PO Q4H PRN PRN PRN Reason: Pain Score 4-5 Last Admin: 05/31/20 14:06 Dose: 5 mg Documented by: Polyethylene Glycol (Polyethylene Glycol 3350 17 Gm Packet) 17 gm PO DAILY [facility] Last Admin: 05/31/20 13:23 Dose: Not Given Documented by: Prednisone ([facility] 10 Mg [facility]) [facility] Last Admin: 05/31/20 13:22 Dose: 10 mg Documented by: Prochlorperazine Edisylate (Prochlorperazine 10 Mg/2 Ml Vial) 5 mg IV Q4H PRN PRN PRN Reason: Breakthrough nausea/vomiting Senna/Docusate Sodium (Senna/Docusate Sodium 1 Tablet) 2 tablet PO BID PRN PRN PRN Reason: Constipation Sodium Chloride (0.9% Saline Lock 10 Ml Syringe) 10 - 40 ml IV UD PRN PRN Reason: SALINE FLUSH Last Admin: 05/31/20 08:34 Dose: 10 ml Documented by: Sodium Chloride (0.9% Saline Lock 10 Ml Syringe) 10 - 40 ml IV UD PRN PRN Reason: SALINE FLUSH Zolpidem Tartrate (Zolpidem Tartrate 5 Mg Tablet) 5 mg PO QHS PRN PRN PRN Reason: INSOMNIA - Past Medical History Past Medical History (Chronic Problems): Chronic Problems (Last Reviewed 05/31/20 @ 09:[address] Toy Arroyo MD) Prostate cancer metastatic to intraabdominal lymph node (Chronic) Encounter for education (Chronic) Chemotherapy follow-up examination (Chronic) Mucositis (ulcerative) due to antineoplastic therapy (Chronic) Erectile dysfunction after radical prostatectomy (Chronic) Abscess (Chronic) Increasing PSA level after treatment for prostate cancer (Chronic) Constipation (Chronic) Stomatitis (Chronic) Neutropenia, drug-induced (Chronic) - Past Surgical History Surgical History: - - Tonsillectomy, radical prostatectomy, left ureter stent - Social History Smoking Status: Former smoker - Family History Maternal Family History: Family History (Last Reviewed 05/10/20 @ 11:[address] Hakan Okeefe DO) Brother CAD (coronary artery disease) Coronary artery disease involving coronary bypass graft Father CAD (coronary artery disease) Coronary artery disease involving coronary bypass graft History Items: No pertinent history Patient Problems: Active and Suspected Problems (Last Reviewed 05/31/20 @ 09:[address] Toy Arroyo MD) Encounter for adjustment and management of vascular access device (Acute) Chemotherapy management, encounter for (Acute) CAITLIN (acute kidney injury) (Acute) Intractable nausea and vomiting (Acute) Bilateral hydronephrosis (Acute) Hyponatremia (Acute) - Physical Exam Vitals/I&O's: Vital Signs Temp Pulse Resp BP Pulse Ox 97.7 F L 69 16 145/77 H 96 05/31/20 16:09 05/31/20 16:09 05/31/20 16:09 05/31/20 16:09 05/31/20 16:09 Oxygen Delivery Method Room Air Weight: 73.5 kg Body Mass Index (BMI) 24.5 Intake and Output for Last 24 Hours 05/29/20 05/30/20 05/31/20 23:59 23:59 23:59 Intake Total 1000.05 / 1000.05 2290.75 / 2290.75 Output Total 1580 / 1580 Balance 1000.05 / 1000.05 710.75 / 710.75 General: Alert, Oriented x3 Oral: Moist Mucosa Neck: Supple, No JVD Lungs: Clear to auscultation, Normal air movement, No rhonchi, No wheeze Cardiovascular: Regular rate, Regular Rhythm, Normal S1, Normal S2 Abdomen: Bowel Sounds Present, Soft, Non Tender, Non-Distended Extremities: No clubbing, No cyanosis, No edema Skin: No rashes Musculoskeletal: No Tenderness to Palpation of Joints or Extremities Neurological: Cranial nerves II-XII grossly intact, Neuro grossly intact Psych/Mental Status: Normal Affect Laboratory Results 05/30/20 20:38: WBC 8.1, RBC 2.87 L, Hgb 8.8 L, Hct 26.8 L, MCV 93.4, MCH 30.7, MCHC 32.8, RDW Std Deviation 49.7 H, RDW Coeff of Barbara 14.8 H, Plt Count 234, MPV 9.8, Immature Gran % (Auto) 1.100 H, Neut % (Auto) 86.0 H, Lymph % (Auto) 3.4 L, [place] % (Auto) 9.2, Eos % (Auto) 0.1, Baso % (Auto) 0.2, Absolute Neuts (auto) 7.0, Absolute Lymphs (auto) 0.28 L, Nucleated RBC % 0, Differential Comment SCANNED 05/30/20 20:38: Sodium 127 L, Potassium 5.5 H, Chloride 90 L, Carbon Dioxide 21.0, Anion Gap 16 H, BUN 83 H, Creatinine 7.53 H*, Estim Creat Clear Calc 9.71, Est GFR (MDRD) Af Amer 9 L, Est GFR (MDRD) Non-Af 8 L, BUN/Creatinine Ratio 11.0, Glucose 67 L, Calcium 8.5, Total Bilirubin 0.50, AST 27, ALT 11 L, Alkaline Phosphatase 53, Troponin I < 0.015, Total Protein 7.2, Albumin 2.8 L, Globulin 4.4 H, Albumin/Globulin Ratio 0.6 L, Lipase 31 L 05/30/20 20:38: Magnesium 2.1 05/30/20 22:20: Urine Color SEE COMMENT BELOW, Urine Clarity Clear, Urine pH 6.0, Ur Specific [place] 1.010, Urine Protein 100 H, Urine Glucose (UA) Normal, Urine Ketones 5 H, Urine Occult Blood 250 H, Urine Nitrite Negative, Urine Bilirubin Negative, Urine Urobilinogen Normal, Ur Leukocyte Esterase 500 H, Urine RBC 5-10 SEEN, Urine WBC 0-5 SEEN, Ur Squamous Epith Cells 0 SEEN, Urine Bacteria 0 SEEN, Urine Mucus 0 SEEN 05/31/20 01:17: Urine Color Yellow, Urine Clarity Clear, Urine pH 6.0, Ur Specific [place] 1.010, Urine Protein 30 H, Urine Glucose (UA) Normal, Urine Ketones 5 H, Urine Occult Blood 250 H, Urine Nitrite Negative, Urine Bilirubin Negative, Urine Urobilinogen Normal, Ur Leukocyte Esterase 25 H, Urine RBC 0-5 SEEN, Urine WBC 0-5 SEEN, Ur Squamous Epith Cells 0 SEEN, Urine Bacteria 1+, Urine Mucus 0 SEEN 05/31/20 07:20: WBC 7.2, RBC 2.57 L, Hgb 7.8 L, Hct 23.9 L, MCV 93.0, MCH 30.4, MCHC 32.6, RDW Std Deviation 50.0 H, RDW Coeff of Barbara 14.8 H, Plt Count 190, MPV 9.8, Immature Gran % (Auto) 1.000 H, Neut % (Auto) 82.0 H, Lymph % (Auto) 3.9 L, [place] % (Auto) 12.4 H, Eos % (Auto) 0.3, Baso % (Auto) 0.4, Absolute Neuts (auto) 5.9, Absolute Lymphs (auto) 0.28 L, Nucleated RBC % 0, Platelet Estimate ADEQUATE, Hypochromasia 2+ 05/31/20 07:20: PT 14.0, INR 1.1 05/31/20 07:20: Sodium 130 L, Potassium 4.6, Chloride 95 L, Carbon Dioxide 20.0 L, BUN 84 H, Creatinine 7.32 H, Estim Creat Clear Calc 9.99, Est GFR (MDRD) Af Amer 10 L, Est GFR (MDRD) Non-Af 8 L, BUN/Creatinine Ratio 11.5, Glucose 74, Calcium 8.2 L, Phosphorus 6.9 H, Albumin 2.4 L Current Medications Acetaminophen (Acetaminophen 325 Mg Tablet) 650 mg PO Q6H PRN PRN PRN Reason: Pain Score 1-10/Temp > 100.7 F Aspirin (Aspirin E.C. 81 Mg Tablet) 81 mg PO DAILY [facility] Last Admin: 05/31/20 13:22 Dose: 81 mg Documented by: Ezetimibe (Ezetimibe 10 Mg Tablet) 10 mg PO QHS [facility] Fentanyl (Fentanyl 50 Mcg Patch) 50 mcg TD Q72H [facility] Last Admin: 05/31/20 16:10 Dose: 50 mcg Documented by: Heparin Sodium (Porcine) (Heparin Injection (Vial) 5,000 Unit/Ml Vial) 5,000 unit SC Q12 [facility] Last Admin: 05/31/20 13:23 Dose: Not Given Documented by: Hydromorphone HCl (Hydromorphone 0.5 Mg/0.5 Ml Syringe) 0.5 mg IV Q4H PRN PRN PRN Reason: Pain Score 6-10 Last Admin: 05/31/20 12:22 Dose: 0.5 mg Documented by: Ceftriaxone Sodium (Rocephin) 1 gm in 50 mls @ 100 mls/hr IV QHS [facility] Last Infusion: 05/31/20 01:57 Dose: Infused Documented by: Sodium Chloride () 250 mls @ 15 mls/hr IV .[id number] PRN PRN Reason: Saline Flush Sodium Chloride () 250 mls @ 15 mls/hr IV .[id number] PRN PRN Reason: Additional IVPB Infusion Sodium Chloride () 250 mls @ 15 mls/hr IV .[id number] PRN PRN Reason: Saline Flush Lidocaine/Diphenhydr/Alum/Mg/Simeth (Bmx Liquid 180 Ml) 15 ml PO ACHS PRN PRN Reason: MOUTH PAIN Nitroglycerin (Nitroglycerin (Inpatient Use) 0.4 Mg Tab.Subl) 0.4 mg SL Q5M PRN PRN Reason: CARDIAC/CHEST PAIN Nutritional Formula (Lactose Free) (Ensure Enlive 120 Ml Liquid) 120 ml PO 4X/DAY [facility] Last Admin: 05/31/20 13:23 Dose: Not Given Documented by: Ondansetron HCl (Ondansetron Odt 4 Mg Tablet) 4 mg PO Q8H PRN PRN PRN Reason: NAUSEA Oxycodone HCl (Oxycodone 5 Mg Tablet) 5 mg PO Q4H PRN PRN PRN Reason: Pain Score 4-5 Last Admin: 05/31/20 14:06 Dose: 5 mg Documented by: Polyethylene Glycol (Polyethylene Glycol 3350 17 Gm Packet) 17 gm PO DAILY [facility] Last Admin: 05/31/20 13:23 Dose: Not Given Documented by: Prednisone ([facility] 10 Mg [facility]t) [facility] Last Admin: 05/31/20 13:22 Dose: 10 mg Documented by: Prochlorperazine Edisylate (Prochlorperazine 10 Mg/2 Ml Vial) 5 mg IV Q4H PRN PRN PRN Reason: Breakthrough nausea/vomiting Senna/Docusate Sodium (Senna/Docusate Sodium 1 Tablet) 2 tablet PO BID PRN PRN PRN Reason: Constipation Sodium Chloride (0.9% Saline Lock 10 Ml Syringe) 10 - 40 ml IV UD PRN PRN Reason: SALINE FLUSH Last Admin: 05/31/20 08:34 Dose: 10 ml Documented by: Sodium Chloride (0.9% Saline Lock 10 Ml Syringe) 10 - 40 ml IV UD PRN PRN Reason: SALINE FLUSH Zolpidem Tartrate (Zolpidem Tartrate 5 Mg Tablet) 5 mg PO QHS PRN PRN PRN Reason: INSOMNIA Assessment/Plan All Active Problems (Last Reviewed 05/31/20 @ 09:[address] Toy Arroyo MD) Encounter for adjustment and management of vascular access device (Acute) Chemotherapy management, encounter for (Acute) Left lower quadrant pain (Resolved) CAITLIN (acute kidney injury) (Acute) Intractable nausea and vomiting (Acute) Bilateral hydronephrosis (Acute) Hyponatremia (Acute) 1-acute kidney injury likely postrenal from bilateral ureteral obstruction likely from retroperitoneal bulky lymphadenopathy. Creatinine is up to 7.3 mg deciliter today. Status post bilateral stents placement today. We will continue to monitor creatinine. If no improvement patient will need bilateral percutaneous nephrostomy tube placement as per urology recommendation. I will stop IV fluid. There is no need for renal placement therapy. Please avoid NSAIDs. Recheck kidney function in the morning. 2-hyperkalemia. Treated medically. Potassium today 4.6. 3-hyponatremia. Likely from decreased effective volume related to dehydration. Improved with IV fluid. Patient is eating now. I will DC IV fluid Thank you for the consult. Renal team will continue to follow
[2020-05-31] MEDS: Senna/Docusate Sodium 1 Tablet 2 TABLET PO (21:46)
[2020-05-31] MEDS: Zolpidem Tartrate 5 MG Tablet PO (21:47)
[2020-05-31] MEDS: Ezetimibe 10 MG Tablet PO (21:47)
[2020-05-31] MEDS: Acetaminophen 325 MG Tablet 650 MG PO (21:47)
[2020-05-31] MEDS: Heparin Injection (Vial) 5,000 UNIT/ML VIAL 5000 UNIT SC (21:47)
[2020-06-01 03:52] VITALS: BP 131/74; PULSE 70; RESP 14; TEMP 36.6; O2SAT 97
[2020-06-01 06:07] LABS: Albumin, Serum 2.4 g/dL (3.2-5.0); BUN 56 mg/dL (7-18); Calcium,Total 8.5 mg/dL (8.5-10.1); Chloride 107 mmol/L (98-107); Creatinine, Serum 2.95 mg/dL (0.70-1.30); EST Glomerular Filtration Rate 23 mL/min (>60); Est Glom Filt Rate - Afr Amer 28 mL/min (>60); Glucose 106 mg/dL (74-106); Phosphorus 3.6 mg/dL (2.5-4.9); Potassium 4.5 mmol/L (3.5-5.1); Sodium Level 139 mmol/L (136-145)
[2020-06-01 07:53] VITALS: O2SAT 92
[2020-06-01] MEDS: predniSONE 10 MG Tablet PO (08:27)
[2020-06-01 08:43] VITALS: BP 149/78; PULSE 70; RESP 16; TEMP 36.5; O2SAT 95
--- NOTE | 2020-06-01 09:08 | DS.PCM_ITS ---
Discharge Date and Diagnosis - Problem List Patient Problems: Active and Suspected Problems (Last Reviewed 05/31/20 @ 09:[address] Toy Arroyo MD) Encounter for adjustment and management of vascular access device (Acute) Chemotherapy management, encounter for (Acute) CAITLIN (acute kidney injury) (Acute) Intractable nausea and vomiting (Acute) Bilateral hydronephrosis (Acute) Hyponatremia (Acute) Date of Admission: 05/30/20 Date of Discharge: 06/01/20 - Primary Discharge Diagnosis Acute Problems: Active Problems (Last Reviewed 05/31/20 @ 09:[address] Toy Arroyo MD) #1 acute kidney injury secondary to obstructive uropathy from prostate cancer #2 prostate cancer #3 hyponatremia #4 osteoarthritis #5 anemia-probably secondary to chronic disease (prostate cancer) - Secondary Discharge Diagnosis Chronic Problems: Chronic Problems (Last Reviewed 05/31/20 @ 09:[address] Toy Arroyo MD) Prostate cancer metastatic to intraabdominal lymph node (Chronic) Encounter for education (Chronic) Chemotherapy follow-up examination (Chronic) Mucositis (ulcerative) due to antineoplastic therapy (Chronic) Erectile dysfunction after radical prostatectomy (Chronic) Abscess (Chronic) Increasing PSA level after treatment for prostate cancer (Chronic) Constipation (Chronic) Stomatitis (Chronic) Neutropenia, drug-induced (Chronic) Hospital Course and Treatment Operations: - - Cystoscopy with bilateral ureteral stent placement Summary of Care Provided: The patient is a 64 year old M who was seen in the emergency room at [facility] with a chief complaint of nausea, vomiting, and diarrhea. Patient recently had a ureteral stent placed in April 2020 due to urinary re tention and obstructive uropathy. Patient states he is not drinking very much fluid at home, work-up in the emergency room included an abdominal and pelvic CT which showed bilateral moderate hydronephrosis, left ureteral stent appear to be in good position. Patient's labs showed a normal white blood cell count, hemoglobin was low at 8.8, potassium was 5.5, creatinine was elevated at 7.53, BUN was 83 and urinalysis was essentially unremarkable. Patient was admitted for obstructive uropathy, he was seen in consultation by urology and taken for bilateral ureteral stent placement and cystoscopy on 05/31/2020. Patient tolerated the procedure well, he was placed on IV fluids and seen in consultation by nephrology, on 06/01/2020, patient's lab was noted to be greatly improved with a creatinine of around 2.9. It was felt that he was stable for discharge at that time, I discussed the case with urology and nephrology. On examination he appeared in good health and spirits. Vital signs as docu mented. Skin warm and dry and without overt rashes. Neck without JVD, neck was supple, trachea midline, thyroid was normal. Lungs clear bilaterally, normal air movement was noted. Heart exam notable for regular rhythm, normal sounds and absence of murmurs, rubs or gallops. Abdomen unremarkable and without evidence of organomegaly, masses, or abdominal aortic enlargement. Bowel sounds are present, abdomen is not distended. Extremities nonedematous, no cyanosis was noted, no clubbing was noted. Neuro: Cranial nerves II through XII are grossly intact, no focal motor deficits were noted, sensation to light touch and pinprick intact, motor exam 5/5 throughout. Psych: Patient is alert and oriented x3, he does not appear anxious or depressed, he does not appear agitated. Patient will be discharged home in stable condition on 06/01/2020, he is to follow-up this week with his PCP and get repeat kidney function tests performed and follow-up with nephrology in approximately 3 weeks. He will also be following up with Dr. Arroyo. Patient Problems: Active and Suspected Problems (Last Reviewed 05/31/20 @ 09:[address] Toy Arroyo MD) Encounter for adjustment and management of vascular access device (Acute) Chemotherapy management, encounter for (Acute) CAITLIN (acute kidney injury) (Acute) Intractable nausea and vomiting (Acute) Bilateral hydronephrosis (Acute) Hyponatremia (Acute) - Physical Exam Vitals/I&O's: Vital Signs Temp Pulse Resp BP Pulse Ox 97.7 F L 70 16 149/78 H 95 06/01/20 08:43 06/01/20 08:43 06/01/20 08:43 06/01/20 08:43 06/01/20 08:43 Oxygen Delivery Method Room Air Weight: 73.5 kg Body Mass Index (BMI) 24.5 Intake and Output for Last 24 Hours 05/30/20 05/31/20 06/02/20 23:59 23:59 00:59 Intake Total 1000.05 / 1000.05 3078.25 / 3078.25 1011.75 / 1011.75 Output Total 4980 / 4980 1725 / 1725 Balance 999. / 999.05 -1901.75 / -1901.75 -713.25 / -713.25 Laboratory Results 05/31/20 07:20: WBC 7.2, RBC 2.57 L, Hgb 7.8 L, Hct 23.9 L, MCV 93.0, MCH 30.4, MCHC 32.6, RDW Std Deviation 50.0 H, RDW Coeff of Barbara 14.8 H, Plt Count 190, MPV 9.8, Immature Gran % (Auto) 1.000 H, Neut % (Auto) 82.0 H, Lymph % (Auto) 3.9 L, [place] % (Auto) 12.4 H, Eos % (Auto) 0.3, Baso % (Auto) 0.4, Absolute Neuts (auto) 5.9, Absolute Lymphs (auto) 0.28 L, Nucleated RBC % 0, Platelet Estimate ADEQUATE, Hypochromasia 2+ 05/31/20 07:20: PT 14.0, INR 1.1 05/31/20 07:20: Sodium 130 L, Potassium 4.6, Chloride 95 L, Carbon Dioxide 20.0 L, BUN 84 H, Creatinine 7.32 H, Estim Creat Clear Calc 9.99, Est GFR (MDRD) Af Amer 10 L, Est GFR (MDRD) Non-Af 8 L, BUN/Creatinine Ratio 11.5, Glucose 74, Calcium 8.2 L, Phosphorus 6.9 H, Albumin 2.4 L 06/01/20 05:24: Sodium 139, Potassium 4.5, Chloride 107, Carbon Dioxide 24.0, BUN 56 H, Creatinine 2.95 H, Estim Creat Clear Calc 24.80, Est GFR (MDRD) Af Amer 28 L, Est GFR (MDRD) Non-Af 23 L, BUN/Creatinine Ratio 19.0, Glucose 106, Calcium 8.5, Phosphorus 3.6, Albumin 2.4 L Current Medications Acetaminophen (Acetaminophen 325 Mg Tablet) 650 mg PO Q6H PRN PRN PRN Reason: Pain Score 1-10/Temp > 100.7 F Last Admin: 05/31/20 21:47 Dose: 650 mg Documented by: Aspirin (Aspirin E.C. 81 Mg Tablet) 81 mg PO DAILY [facility] Last Admin: 06/01/20 08:46 Dose: Not Given Documented by: Ezetimibe (Ezetimibe 10 Mg Tablet) 10 mg PO QHS [facility] Last Admin: 05/31/20 21:47 Dose: 10 mg Documented by: Fentanyl (Fentanyl 50 Mcg Patch) 50 mcg TD Q72H [facility] Last Admin: 05/31/20 16:10 Dose: 50 mcg Documented by: Heparin Sodium (Porcine) (Heparin Injection (Vial) 5,000 Unit/Ml Vial) 5,000 unit SC Q12 [facility] Last Admin: 06/01/20 08:46 Dose: Not Given Documented by: Hydromorphone HCl (Hydromorphone 0.5 Mg/0.5 Ml Syringe) 0.5 mg IV Q4H PRN PRN PRN Reason: Pain Score 6-10 Last Admin: 05/31/20 12:22 Dose: 0.5 mg Documented by: Ceftriaxone Sodium (Rocephin) 1 gm in 50 mls @ 100 mls/hr IV QHS [facility] Last Infusion: 05/31/20 22:17 Dose: Infused Documented by: Sodium Chloride () 250 mls @ 15 mls/hr IV .[id number] PRN PRN Reason: Saline Flush Sodium Chloride () 250 mls @ 15 mls/hr IV .[id number] PRN PRN Reason: Additional IVPB Infusion Sodium Chloride () 250 mls @ 15 mls/hr IV .[id number] PRN PRN Reason: Saline Flush Lidocaine/Diphenhydr/Alum/Mg/Simeth (Bmx Liquid 180 Ml) 15 ml PO ACHS PRN PRN Reason: MOUTH PAIN Nitroglycerin (Nitroglycerin (Inpatient Use) 0.4 Mg Tab.Subl) 0.4 mg SL Q5M PRN PRN Reason: CARDIAC/CHEST PAIN Nutritional Formula (Lactose Free) (Ensure Enlive 120 Ml Liquid) 120 ml PO 4X/DAY [facility] Last Admin: 06/01/20 08:46 Dose: Not Given Documented by: Ondansetron HCl (Ondansetron Odt 4 Mg Tablet) 4 mg PO Q8H PRN PRN PRN Reason: NAUSEA Oxycodone HCl (Oxycodone 5 Mg Tablet) 5 mg PO Q4H PRN PRN PRN Reason: Pain Score 4-5 Last Admin: 05/31/20 21:47 Dose: 5 mg Documented by: Polyethylene Glycol (Polyethylene Glycol 3350 17 Gm Packet) 17 gm PO DAILY [facility] Last Admin: 06/01/20 08:46 Dose: Not Given Documented by: Prednisone ([facility] 10 Mg [facility]t) [facility] Last Admin: 06/01/20 08:27 Dose: 10 mg Documented by: Prochlorperazine Edisylate (Prochlorperazine 10 Mg/2 Ml Vial) 5 mg IV Q4H PRN PRN PRN Reason: Breakthrough nausea/vomiting Senna/Docusate Sodium (Senna/Docusate Sodium 1 Tablet) 2 tablet PO BID PRN PRN PRN Reason: Constipation Last Admin: 05/31/20 21:46 Dose: 2 tablet Documented by: Sodium Chloride (0.9% Saline Lock 10 Ml Syringe) 10 - 40 ml IV UD PRN PRN Reason: SALINE FLUSH Last Admin: 05/31/20 08:34 Dose: 10 ml Documented by: Sodium Chloride (0.9% Saline Lock 10 Ml Syringe) 10 - 40 ml IV UD PRN PRN Reason: SALINE FLUSH Zolpidem Tartrate (Zolpidem Tartrate 5 Mg Tablet) 5 mg PO QHS PRN PRN PRN Reason: INSOMNIA Last Admin: 05/31/20 21:47 Dose: 5 mg Documented by: Home Medications: Medications to take at Discharge Dexlansoprazole [Dexilant] 60 mg PO DAILY 01/16/19 Ezetimibe [Zetia] 10 mg PO QHS 01/16/19 Leuprolide acetate [Eligard] 22.5 mg SQ X1 01/16/19 Psyllium Husk (with Sugar) [Metamucil Packet] 3.4 gm PO DAILY 01/22/19 Ondansetron [Zofran Odt] 4 mg PO Q8H PRN PRN 10 Days #30 tab 01/29/19 Prochlorperazine Maleate 10 mg PO Q6H PRN PRN 10 Days #30 tab 01/29/19 Polyethylene Glycol 3350 [Miralax] 17 gm PO DAILY 10/30/19 Fentanyl 50 mcg TOPICAL Q72H 01/15/20 Oxycodone 5 mg PO BID 01/15/20 Magic Mouth Wash 15 ml PO Q6H PRN PRN #300 ml 04/23/20 Aspirin [Lo-Dose Aspirin EC] 81 mg PO DAILY 04/24/20 Prednisone 10 mg PO DAILY 60 Days #60 tab 04/24/20 Naloxegol Oxalate [Movantik] 12.5 mg PO DAILY 05/10/20 Amlodipine Besilate 5 mg PO DAILY 05/30/20 Primary Care Physician: Denny Carrasco DO [Primary Care Provider] - Please follow up with your Primary Care Physician in: on Tuesday-get a BMP performed Please Follow Up With: Jeremiah Keith MD When: in 3 weeks-call for appointment Please Follow Up With: Toy Arroyo MD When: this week Disposition: Home Minutes spent on discharge:: 32 Patient Condition:: Stable Medical Necessity - Tobacco Use Smoking Status: Former smoker Meaningful Use Info Meaningful Use Diagnoses (Choose all that apply): None applicable Inpatient E&M: 01990 [facility]
--- NOTE | 2020-06-01 09:22 | DCINST_ITS ---
- Discharge Diagnoses Current Active Problems: Current Active and Chronic Problems (Last Reviewed 05/31/20 @ 09:[address] Toy Arroyo MD) Prostate cancer metastatic to intraabdominal lymph node (Chronic) Encounter for adjustment and management of vascular access device (Acute) Encounter for education (Chronic) Chemotherapy management, encounter for (Acute) Chemotherapy follow-up examination (Chronic) Mucositis (ulcerative) due to antineoplastic therapy (Chronic) Erectile dysfunction after radical prostatectomy (Chronic) Abscess (Chronic) Increasing PSA level after treatment for prostate cancer (Chronic) Constipation (Chronic) Stomatitis (Chronic) Neutropenia, drug-induced (Chronic) CAITLIN (acute kidney injury) (Acute) Intractable nausea and vomiting (Acute) Bilateral hydronephrosis (Acute) Hyponatremia (Acute) You will use the following diet at home:: No restrictions Your food should be the consistency of: Regular Your liquids should be the consistency of: Regular/Thin Discharge Activity: Return to Normal Activity Weight Bearing Status: Full weight bearing Allergies/Adverse Reactions: Allergies No Known Allergies Allergy (Verified 05/30/20 19:45) Medications to take at Discharge Dexlansoprazole [Dexilant] 60 mg PO DAILY 01/16/19 Ezetimibe [Zetia] 10 mg PO QHS 01/16/19 Leuprolide acetate [Eligard] 22.5 mg SQ X1 01/16/19 Psyllium Husk (with Sugar) [Metamucil Packet] 3.4 gm PO DAILY 01/22/19 Ondansetron [Zofran Odt] 4 mg PO Q8H PRN PRN 10 Days #30 tab 01/29/19 Prochlorperazine Maleate 10 mg PO Q6H PRN PRN 10 Days #30 tab 01/29/19 Polyethylene Glycol 3350 [Miralax] 17 gm PO DAILY 10/30/19 Fentanyl 50 mcg TOPICAL Q72H 01/15/20 Oxycodone 5 mg PO BID 01/15/20 Magic Mouth Wash 15 ml PO Q6H PRN PRN #300 ml 04/23/20 Aspirin [Lo-Dose Aspirin EC] 81 mg PO DAILY 04/24/20 Prednisone 10 mg PO DAILY 60 Days #60 tab 04/24/20 Naloxegol Oxalate [Movantik] 12.5 mg PO DAILY 05/10/20 Amlodipine Besilate 5 mg PO DAILY 05/30/20 Primary Care Physician: Denny Carrasco DO [Primary Care Provider] - Please follow up with your Primary Care Physician in: on Tuesday-get a BMP performed Test Results: Test results from this visit will be discussed in further detail at your follow- up appointment, if applicable. Please Follow Up With: Jeremiah Keith MD When: in 3 weeks-call for appointment Please Follow Up With: Toy Arroyo MD When: this week
[2020-06-01 14:44] VITALS: BP 146/83; PULSE 75; RESP 18; TEMP 36.3; O2SAT 96
== END 2020-06-01 14:55 | disposition home or self-care (01) | DRG 660 ==
LOC: ED 20:37 → MS3 05-31 00:08
PROVIDERS: Urology; Admitting Provider Internal Medicine; Emergency Provider Emergency Medicine; PCP Preventive Medicine Occupational Medicine; Visit Provider Internal Medicine
PROC: 0T788DZ Dilation of Bilateral Ureters with Intraluminal Device, Via Natural or Artificial Opening Endoscopic (ICD-10-PCS; principal; 2020-05-31 09:30)
DX: N13.1 Hydronephrosis with ureteral stricture, not elsewhere classified (principal); E87.1 Hypo-osmolality and hyponatremia; C77.2 Secondary and unspecified malignant neoplasm of intra-abdominal lymph nodes; C61 Malignant neoplasm of prostate; N17.9 Acute kidney failure, unspecified; M19.90 Unspecified osteoarthritis, unspecified site; D63.0 Anemia in neoplastic disease; Z87.891 Personal history of nicotine dependence; E86.0 Dehydration; E78.5 Hyperlipidemia, unspecified; Z66 Do not resuscitate; Z79.899 Other long term (current) drug therapy; E87.5 Hyperkalemia
CPT/HCPCS: 36415; 74176; 76000; 80053; 80069; 81001; 83690; 83735; 84484; 85025; 85610; 87086; 93005; 97803; 99284; J7030; A4216; C1769; C2617; J0610; J2405

== ENCOUNTER → 2020-08-19 12:10 | Outpatient (CLI) | payer BC, SELFPAY ==
[2020-04-14 13:58] VITALS: BMI 24.7
[2020-06-10 10:00] VITALS: BMI 21.9
[2020-08-19 12:43] LABS: Hematocrit 27.9 % (40-54); Hemoglobin 8.5 g/dL (13.0-16.5); Mean Corp Hgb Conc 30.5 g/dL (32-36); Mean Corpuscular Volume 98.6 fL (80-94); Mean Platelet Vol. 9.6 fl (6.2-12.0); Platelet Count 221 K/mm3 (150-450); RBC Distribution Width CV 15.9 % (11.6-14.6); RBC Distribution Width SD 57.8 fl (35.1-43.9); Red Blood Count 2.83 M/mm3 (4.6-6.2); White Blood Count 6.5 K/mm3 (4.4-11.0)
[2020-08-19 13:12] LABS: Anion Gap 4 (5-15); BUN 25 mg/dL (7-18); BUN/Creat Ratio 12.3 RATIO (10-20); Calcium,Total 8.9 mg/dL (8.5-10.1); Chloride 103 mmol/L (98-107); Creatinine, Serum 2.04 mg/dL (0.70-1.30); EST Glomerular Filtration Rate 35 mL/min (>60); Est Glom Filt Rate - Afr Amer 43 mL/min (>60); Glucose 101 mg/dL (74-106); Potassium 4.7 mmol/L (3.5-5.1); Sodium Level 138 mmol/L (136-145)
== END ==
PROVIDERS: PCP Preventive Medicine Occupational Medicine; Referring Provider Urology; Visit Provider Urology
DX: Z01.812 Encounter for preprocedural laboratory examination (principal); R30.0 Dysuria
CPT/HCPCS: 36415; 80048; 85027; 87086; 87088

== ENCOUNTER 2020-08-27 10:26 | Day surgery (SDC) | payer BC, SELFPAY ==
[2020-04-14 13:58] VITALS: BMI 24.7
[2020-06-10 10:00] VITALS: BMI 21.9
[2020-08-27] MEDS: Lactated Ringers 1,000 ML 100 ML IV (11:09)
[2020-08-27 11:13] VITALS: BP 105/62; PULSE 77; RESP 16; TEMP 37.2; O2SAT 97; BMI 21.9
[2020-08-27] MEDS: Cefazolin 2 GM in 0.9% Normal Saline 100 ML IV (14:25)
--- NOTE | 2020-08-27 14:33 | PCM.DC ---
Discharge Plan Admission Primary Reason for Your Visit: stent change bilateral Attending Provider: Toy Arroyo Primary Care Provider: Denny Carrasco Discharge Orders/Prescriptions Prescriptions: New ciprofloxacin HCl [Cipro] 500 mg tablet 500 mg PO BID Qty: 6 RF: 0 Continued ezetimibe [Zetia] 10 MG tablet 10 mg PO QHS RF: 0 Dexilant 60 MG capsule,biphase delayed releas 60 mg PO DAILY RF: 0 polyethylene glycol 3350 17 GM packet 17 gm PO DAILY RF: 0 oxycodone 5 MG tablet 10.5 mg PO BID PRN (Reason: Pain Score 1-10) Qty: 0 RF: 0 aspirin 81 MG tablet,delayed release (DR/EC) 81 mg PO DAILY RF: 0 cetirizine 10 MG tablet 10 mg PO DAILY RF: 0 amlodipine [Norvasc] 5 MG tablet 5 mg PO DAILY Qty: 0 RF: 0 methadone 10 mg Tablet 10 mg PO BID RF: 0 prochlorperazine maleate [Compazine] 10 MG tablet 10 mg PO Q6H PRN PRN (Reason: Nausea) RF: 0 Referrals / Follow Up: Toy Arroyo MD [STAFF PHYSICIAN] - Denny Carrasco DO [Primary Care Provider] - Disposition Discharge Orders: Discharge Patient (Routine); Ordered 08/27/20 Ordered By: Dr. Toy Arroyo
--- NOTE | 2020-08-27 14:33 | PCM.HP.STD ---
HPI - General HPI Narrative PARVEEN VERA, is a 65 M who presents for cystoscopy and bilateral stent change. 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 [facility] Medical History (Updated 08/20/20 @ 13:53 by Kezia Thomas) Abnormal biopsy result Ambulates with cane Arthritis Cancer DDD (degenerative disc disease) Diverticulitis Elevated PSA Erectile dysfunction after radical prostatectomy GERD without esophagitis High cholesterol History of bone scan Hypercholesterolemia Hypertension Malignant neoplasm of prostate Osteoarthritis Osteoporosis Port-A-Cath in place Smoker Stress incontinence, male Unspecified retinal disorder Unspecified visual disturbance Uses wheelchair Home Medications Dexilant 60 mg PO DAILY 01/16/19 [History Last Taken 01/25/19] ezetimibe [Zetia] 10 mg PO QHS 01/16/19 [History Last Taken Unknown] polyethylene glycol 3350 17 gm PO DAILY 10/30/19 [History Last Taken Unknown] oxycodone 10.5 mg PO BID PRN #0 01/15/20 [History Last Taken Unknown] aspirin 81 mg PO DAILY 04/24/20 [History Last Taken 08/18/20] amlodipine [Norvasc] 5 mg PO DAILY #0 05/30/20 [History Last Taken Unknown] cetirizine 10 mg PO DAILY 06/10/20 [History Last Taken Unknown] methadone 10 mg PO BID 08/20/20 [History Last Taken Unknown] prochlorperazine maleate [Compazine] 10 mg PO Q6H PRN PRN 08/20/20 [History Last Taken Unknown] ciprofloxacin HCl [Cipro] 500 mg PO BID #6 tab 08/27/20 [Rx Last Taken Unknown] Allergy/AdvReac Type Severity Reaction Status Date / Time No Known Allergies Allergy Verified 08/20/20 13:40 Family History Brother CAD (coronary artery disease) Coronary artery disease involving coronary bypass graft Father CAD (coronary artery disease) Coronary artery disease involving coronary bypass graft Surgical History (Updated 06/10/20 @ 10:[address] Janusz Cuenca MD) History of fusion of cervical spine History of radical prostatectomy History of removal of Port-a-Cath (~03/2019) History of renal stent History of tonsillectomy Social History (Updated 05/24/19 @ 14:35 by Anai PETERS, PA-C) Smoking Status: Current some day smoker tobacco type: cigarettes and pipe Vital Signs Vital Signs Vital Signs: 08/27/20 11:00 08/27/20 11:13 Temperature 99 F Temperature Source Temporal Pulse Rate 77 Respiratory Rate 16 Respiratory Pattern Normal Blood Pressure 105/62 Blood Pressure Mean 76 Blood Pressure Source Monitor Blood Pressure Position Semi-Fowlers Blood Pressure Location Left Arm Pulse Ox 97 Oxygen Delivery Method Room Air Weight Weight: 65.6 kg Body Mass Index (BMI) 21.9 Physical Exam Const alert and oriented x3 General Appearance: cooperative HEENT normocephalic, head/scalp atraumatic, EAC's normal and TM's normal bilaterally Eyes PERRL and EOMs intact bilaterally Pupil: sluggish Neck no lymphadenopathy, supple and no JVD General: trachea midline Lymph Lymphatic: no lymphadenopathy noted, lymphedema and lymphadenopathy Resp normal respiratory effort, normal air movement and clear to auscultation bilaterally Cardio regular rate, regular rhythm and peripheral pulses 2+ throughout GI soft to palpation, non-tender and non-distended Extremity normal capillary refill and no clubbing, cyanosis or edema General Extremity: no tenderness to palpation of joints or extremities Skin no rashes or lesions noted General Skin Exam: turgor normal Lesions: no lesions Rashes: no rashes Neuro CN's II-XII intact bilaterally Speech: speech normal Motor Exam: strength 5/5 throughout; Negative for general weakness Psych thought process normal, cooperative and affect normal Appearance: appropriate Results Lab / Micro Data Micro: Microbiology 08/27/20 10:57 SARS-CoV-2 Antigen (Rapid) - Final Interface Orders Assessment & Plan Assessment/Plan (1) Prostate cancer metastatic to intraabdominal lymph node: PLAN: Plan for cystoscopy and bilateral stent change because of obstruction of both kidneys from intra-abdominal lymph nodes from prostate cancer. The stent did not been changed in a few months and become encrusted and painful and therefore the patient wants a stent changed.
--- NOTE | 2020-08-27 14:49 | PCM.OPRPT ---
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 Entire length of the urethra was normal the sphincter was intact went past the sphincter inside the bladder identified the right stent coming out of the right ureteral orifice the stent had migrated down and a lot of stent was inside the bladder probably because of her discomfort so I grabbed the end the stent pulled out the meatus advance a wire up the stent up the right ureter advance a Pollack catheter over the stent performed a retrograde pyelogram I could see the contrast go to the kidney delineate the anatomy and then over the Pollack catheter advanced a wire wire coiled in the right kidney and then I placed a stent on the right side. I then went to the left side grabbed the left stent pulled out the meatus, advance a wire through the stent over the wire I advanced the open-ended 5 [place] ureteral catheter performed a retrograde pyelogram can see the contrast up in the kidney and then over the wire I placed a wire up into the left kidney and then place a new stent a 6 [place] right 26 cm stent once a stent was a good position pulled the wire the stent coiled in the kidney bladder and drained the bladder patient anesthetic reversed and is taken back to PACU good condition hope is that stent change will help alleviate the pain has been having also help with obstruction both his kidneys I did tell the patient is possible that the bother in discomfort and stent may not be alleviated by changing to new stents. Surgeon: Dina Type of Anesthesia: General Drains: 6 [place] by 26 cm stent on the left and right side
[2020-08-27 14:57] VITALS: BP 105/62; BP 149/77; PULSE 66; RESP 14; TEMP 36.5; O2SAT 96
[2020-08-27 15:00] VITALS: BP 105/62; BP 150/75; PULSE 65; RESP 12; O2SAT 94
[2020-08-27 15:15] VITALS: BP 105/62; BP 143/77; PULSE 63; RESP 14; O2SAT 95
[2020-08-27 15:30] VITALS: BP 105/62; BP 149/73; PULSE 60; RESP 16; TEMP 36.8; O2SAT 96
--- NOTE | 2020-08-27 16:08 | PCM.DC ---
Discharge Instructions Diet Discharge Diet: No restrictions Dressing / Incision Call your doctor if your incision/area has: Continuous Slow Oozing, Increased Pain/ Swelling, Increased Redness and Foul Smelling Discharge Call your doctor if you observe: Fever of 101 or Higher, Numbness or Tingling, Shortness of breath, Dizziness, Calf discomfort and Uncontrolled pain Follow Up Care Please Follow Up With: Toy Arroyo MD Test Results: Test results from this visit will be discussed in further detail at your follow-up appointment, if applicable. Discharge Plan Admission Primary Reason for Your Visit: stent change bilateral Attending Provider: Toy Arroyo Primary Care Provider: Denny Carrasco Discharge Orders/Prescriptions Prescriptions: New ciprofloxacin HCl [Cipro] 500 mg tablet 500 mg PO BID Qty: 6 RF: 0 Continued ezetimibe [Zetia] 10 MG tablet 10 mg PO QHS RF: 0 Dexilant 60 MG capsule,biphase delayed releas 60 mg PO DAILY RF: 0 polyethylene glycol 3350 17 GM packet 17 gm PO DAILY RF: 0 oxycodone 5 MG tablet 10.5 mg PO BID PRN (Reason: Pain Score 1-10) Qty: 0 RF: 0 aspirin 81 MG tablet,delayed release (DR/EC) 81 mg PO DAILY RF: 0 cetirizine 10 MG tablet 10 mg PO DAILY RF: 0 amlodipine [Norvasc] 5 MG tablet 5 mg PO DAILY Qty: 0 RF: 0 methadone 10 mg Tablet 10 mg PO BID RF: 0 prochlorperazine maleate [Compazine] 10 MG tablet 10 mg PO Q6H PRN PRN (Reason: Nausea) RF: 0 Referrals / Follow Up: Toy Arroyo MD [STAFF PHYSICIAN] - Denny aCrrasco DO [Primary Care Provider] - Disposition Discharge Orders: Discharge Patient (Routine); Ordered 08/27/20 Ordered By: Dr. Toy Arroyo
[2020-08-27 16:26] VITALS: BP 105/62; BP 149/67; PULSE 63; RESP 16; TEMP 36.8; O2SAT 100
== END 2020-08-27 16:30 ==
LOC: SDC 10:28 → AC 10:30
PROVIDERS: PCP Preventive Medicine Occupational Medicine; Referring Provider Urology; Visit Provider Urology
PROC: (CPT 52332; principal; 2020-08-27 12:45)
DX: N28.89 Other specified disorders of kidney and ureter (principal); T83.122A Displacement of indwelling ureteral stent, initial encounter; C61 Malignant neoplasm of prostate; C77.2 Secondary and unspecified malignant neoplasm of intra-abdominal lymph nodes; M19.90 Unspecified osteoarthritis, unspecified site; K21.9 Gastro-esophageal reflux disease without esophagitis; I10 Essential (primary) hypertension; E78.00 Pure hypercholesterolemia, unspecified; F17.210 Nicotine dependence, cigarettes, uncomplicated; Z79.899 Other long term (current) drug therapy; Z20.822 Contact with and (suspected) exposure to COVID-19
CPT/HCPCS: 00910; 52005; 52332; 76000; 87426; J7120; C1769; J2405